=== PATIENT | male | born 1950 | race Caucasian/White ===

== ENCOUNTER 2016-12-05 07:34 | Emergency (ER) | payer OTHER, MEDICAID ==
[~2016-12-05] VITALS: Ht 157.5 cm; Wt 49.9 kg
[2016-12-05 08:14] LABS: Basophils # (auto) 0 uL; Basophils % (auto) 0.1 % (0.0-2.0); CONDITION Y; Eosinophils # (auto) 0 uL; Eosinophils % (auto) 0.2 % (0.0-7.0); Hematocrit 42.3 % (41.0-53.0); Lymphocytes # (auto) 0.9 uL; Lymphocytes % (auto) 11.1 % (10.0-50.0); Mean Corpuscular Hemoglobin 30.6 pg (28.0-32.0); Mean Corpuscular Hgb Conc. 33.1 g/dL (32.0-36.0); Mean Corpuscular Volume 92.4 fL (80.0-100.0); Monocytes # (auto) 0.4 uL; Monocytes % (auto) 4.9 % (0.0-12.0); Neutrophils # (auto) 6.8 uL; Neutrophils % (auto) 83.7 % (37.0-80.0); Platelet Count (auto) 263 10^3/uL (140-450); Red Cell Distribution Width 14.1 % (11.6-16.0); SUSPECT SEE PRINTOUT; White Blood Cell 8.1 10^3/uL (4.4-10.8)
[2016-12-05 08:38] LABS: Albumin 4.3 g/dL (3.4-5.0); Anion Gap 8 (5-15); Blood Urea Nitrogen 16 mg/dL (7-18); Calcium 9.1 mg/dL (8.5-10.1); Carbon Dioxide 31 mmol/L (21-32); Chloride 98 mmol/L (98-107); Glucose 69 mg/dL (74-106); Magnesium 2.9 mg/dL (1.6-2.6); Potassium 3.9 mmol/L (3.5-5.1); Sodium 137 mmol/L (136-145)
[2016-12-05 08:41] LABS: Aspartate Aminotransferase 47 U/L (15-37); BUN/Creatinine Ratio 20.5; GFR African American 128 mL/min; GFR Non-African American 106 mL/min
[2016-12-05 08:46] LABS: Alkaline Phosphatase 87 U/L (45-117); Bilirubin, Total 0.4 mg/dL (0.2-1.0); Total Protein 8.1 g/dL (6.4-8.2)
[2016-12-05 10:50] VITALS: BP 115/69
== END 2016-12-05 16:33 | disposition home or self-care (01) ==
LOC: EDBD 07:34 → ER 07:36
DX: G45.9 Transient cerebral ischemic attack, unspecified (principal); G80.9 Cerebral palsy, unspecified; I10 Essential (primary) hypertension
CPT/HCPCS: 36415; 70450; 71010; 80053; 83735; 84484; 85025; 93005; 94761

== ENCOUNTER 2024-05-29 16:51 | Inpatient (IN) | payer OTHER, MEDICAID ==
[~2024-05-29] VITALS: Ht 165.1 cm; Wt 76.5 kg
--- NOTE | 2024-05-29 17:09 | ECG ---
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
[2024-05-29] MEDS: SODIUM CHLORIDE 0.9% 1,000 ML IVB ONE (17:15)
--- NOTE | 2024-05-29 17:24 | ED.PDOC ---
History of Present Illness HPI Comments This is a 74-year-old male who comes in with chief complaint of generalized weakness for the past three weeks. The patient was not bed ridden but over the past several weeks, the patient has become more weak and unable to transfer himself to the wheelchair. The patient was had a decreased appetite as well as decreased urine output according to the summer intern. There has been no nausea, vomiting or fever. Upon arrival, the patient had an Accu-Chek of 217. The patient was somewhat drooling. He was able to answer some questions but is very weak. Chief Complaint: General Weakness Time Seen by MD: 16:56 Primary Care Provider: UNOBTAINABLE Reviewed Notes: Nurses Notes, Customer Energy Specialist Notes, Medications, Allergies (No allergies to medications) Allergies: Coded Allergies: NO KNOWN ALLERGIES (Unverified , 12/05/16) Home Meds Unable to Obtain Active Prescriptions or Reported Meds Information Source: Friend, Emergency Med Personnel Mode of Arrival: EMS Severity: Moderate Timing: Weeks Duration: Since onset Prehospital treatment: Accucheck (217) Associated signs and symptoms Generalized weakness with decreased appetite and decreased urine output Past Medical History PAST MEDICAL HISTORY: TIA Past Medical History (Other): Cerebral palsy, scoliosis Surgical History: Denies all surgeries Family History Family History: Reviewed,noncontributory to illness Social History Smoker: Non-Smoker Alcohol: Denies ETOH Use Drugs: Denies Drug Use Lives In: Home Constitutional: reports: weakness; denies: chills, diaphoresis, fatigue, fever, malaise, sweats, others EENTM: denies: blurred vision, double vision, ear bleeding, ear discharge, ear drainage, ear pain, ear ringing, eye pain, eye redness, hearing loss, mouth pain, mouth swelling, nasal discharge, nose bleeding, nose congestion, nose pain, photophobia, tearing, throat pain, throat swelling, voice changes, others Respiratory: denies: cough, hemoptysis, orthopnea, SOB at rest, shortness of breath, SOB with excertion, stridor, wheezing, others Cardiovascular: denies: chest pain, dizzy spells, diaphoresis, Dyspnea on exertion, edema, irregular heart beat, left arm pain, lightheadedness, palpitations, PND, syncope, others Gastrointestinal: reports: poor appetite; denies: abdomen distended, abdominal pain, blood streaked bowels, constipated, diarrhea, dysphagia, difficulty swallo wing, hematemesis, melena, nausea, poor fluid intake, rectal bleeding, rectal pain, vomiting, others Genitourinary: reports: others (Decreased urine output); denies: burning, dysuria, flank pain, frequency, hematuria, incontinence, penile discharge, penile sore, pain, testicle pain, testicle swelling, urgency Neurological: denies: dizziness, fainting, headache, left sided numbness, left sided weakness, numbness, paresthesia, pre-existing deficit, right sided numbness, right sided weakness, seizure, speech problems, tingling, tremors, weakness, others Musculoskeletal: denies: back pain, gout, joint pain, joint swelling, muscle pain, muscle stiffness, neck pain, others Integumetry: denies: bruises, change in color, change in hair/nails, dryness, laceration, lesions, lumps, rash, wounds, others Allergic/Immunocompromised: denies: Difficulty Healing, Frequent Infections, Hives, Itching, others Hematologic/Lymphatic: denies: anemia, blood clots, easy bleeding, easy bruising, swollen glands, others Endocrine: denies: excessive hunger, excessive sweating, excessive thirst, excessive urination, flushing, intolerance to cold, intolerance to heat, unexplained weight gain, unexplained weight loss, others Psychiatric: denies: anxiety, bipolar disorder, depression, hopeless, panic disorder, schizophrenia, sleepless, suicidal, others Physical Exam General Appearance: Cachectic, Moderate Distress, Other (The patient is signi ficantly contracted) HEENT: Pale Conjuntivae (L), Pale Conjuntivae (R), Pharynx Normal, TMs Normal, Other (The patient was drooling) Neck: Full Range of Motion, Non-Tender, Normal, Normal Inspection Respiratory: Chest Non-Tender, Lungs Clear, No Accessory Muscle Use, No Respiratory Distress, Normal Breath Sounds Cardiovascular: No Edema, No JVD, No Murmur, No Gallop, Normal Peripheral Pulses, Regular Rate/Rhythm Breast Exam: Deferred Gastrointestinal: No Organomegaly, Non Tender, No Pulsatile Mass, Normal Bowel Sounds, Soft Genitalia: Deferred Pelvic: Deferred Rectal: Deferred Extremities: No calf tenderness, Normal capillary refill, No pedal edema Musculoskeletal : Apperance: Normal 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 Was a procedure done?: No EKG EKG : Pulse Rate (adult): 72 Pace: Normal Cardiac Rhythm: NSR Block: None ST: Nonsp Differential Dx Considerations may include: Generalized weakness, electrolyte imbalance X-Ray, Labs, Meds, VS Vital Signs Date Time Temp Pulse Resp B/P (MAP) Pulse Ox O2 Delivery O2 Flow Rate FiO2 05/29/24 18:40 64 16 96 Room Air* 0 21 05/29/24 17:59 64 16 96 Room Air 05/29/24 17:59 97.7 64 16 128/77 (94) 96 97.7 05/29/24 17:24 72 05/29/24 17:08 72 05/29/24 16:56 97.8 68 18 140/75 (96) 97 Lab Test 05/29/24 17:44 05/29/24 17:30 Range/Units White Blood Count 7.7 4.4-10.8 10^3/uL Red Blood Count 4.52 4.5-5.90 10^6/uL Hemoglobin 14.2 13.5-17.5 g/dL Hematocrit 42.7 41.0-53.0 % Mean Corpuscular Volume 94.6 80.0-100.0 fL Mean Corpuscular Hemoglobin 31.5 28.0-32.0 pg Mean Corpuscular Hemoglobin Concent 33.3 32.0-36.0 g/dL Red Cell Distribution Width 13.0 11.8-14.3 % Platelet Count 118 L 140-450 10^3/uL Mean Platelet Volume 9.0 6.9-10.8 fL Neutrophils (%) (Auto) 63.9 37.0-80.0 % Lymphocytes (%) (Auto) 25.1 10.0-50.0 % Monocytes (%) (Auto) 6.8 0.0-12.0 % Eosinophils (%) (Auto) 3.5 0.0-7.0 % Basophils (%) (Auto) 0.7 0.0-2.0 % Neutrophils # (Auto) 4.9 1.6-8.6 10 ^3/uL Lymphocytes # (Auto) 1.9 0.4-5.4 10 ^3/uL Monocytes # (Auto) 0.5 0-1.3 10 ^3/uL Eosinophils # (Auto) 0.3 0-0.8 10 ^3/uL Basophils # (Auto) 0.1 0-0.2 10 ^3/uL Nucleated Red Blood Cells 0.0 % Sodium Level 142 136-145 mmol/L Potassium Level 3.6 3.5-5.1 mmol/L Chloride Level 104 98-107 mmol/L Carbon Dioxide Level 28 20-31 mmol/L Anion Gap 10 5-15 Blood Urea Nitrogen 26 H 9-23 mg/dL Creatinine 0.66 L 0.700-1.30 mg/dL Glomerular Filtration Rate Calc 98 >90 mL/min BUN/Creatinine Ratio 39.4 H 10.0-20.0 Serum Glucose 117 H 74-106 mg/dL Calcium Level 10.0 8.7-10.4 mg/dL Lactic Acid Level 1.8 0.4-2.0 mmol/L Current Medications Medications (Trade) Dose Ordered Sig/Elian Route Start Time Stop Time Status Last Admin Sodium Chloride 1,000 ml @ 1,000 mls/hr Q1H ONCE IVB 05/29/24 17:15 05/29/24 18:14 DC 05/29/24 17:15 IV Hep-Lock is being established The patient was being given a 1 L bolus of normal saline At this time, the patient had a CBC and chemistry panel which is within normal limits The patient is having failure to thrive The patient was being admitted to the hospitalist The patient was still not put out any urine output The patient was being admitted at this time Images Reviewed?: Images reviewed and evaluated by me Time of 1ST Reevaluation: 17:22 Reevaluation 1ST: Unchanged Patient Education/Counseling: Diagnosis, Treatment, Prognosis Family Education/Counseling: Diagnosis, Treatment, Prognosis Departure 1 Departure Time of Disposition: 21:14 Impression: Primary Impression: Failure to thrive Qualified Codes: R62.7 - Adult failure to thrive Additional Impression: Generalized weakness Disposition: ADMITTED INPATIENT Admit to: [facility] Condition: Fair e-Prescriptions Unable to Obtain Active Prescriptions or Reported Meds Critical Care Note Critical Care Time?: Yes (45 min-critical care time only) Stability Stability form required: Yes Unstable for transfer: Telemetry monitoring (Telemetry monitoring required), ED Physician Assesment (Clinical assesment) Heart Score Heart Score: Heart Score Response (Comments) Value History N/A 0 EKG N/A 0 Age N/A 0 Risk Factors N/A 0 Troponin N/A 0 Total 0 GEORGINA DUNBAR MD May 29, 2024 17:24
[2024-05-29 17:59] LABS: Chloride 104 mmol/L (98-107); Potassium 3.6 mmol/L (3.5-5.1); Sodium 142 mmol/L (136-145)
[2024-05-29 18:00] LABS: Anion Gap 10 (5-15); Carbon Dioxide 28 mmol/L (20-31)
[2024-05-29 18:02] LABS: Basophils # (auto) 0.1 10 ^3/uL (0-0.2); Basophils % (auto) 0.7 % (0.0-2.0); Eosinophils # (auto) 0.3 10 ^3/uL (0-0.8); Eosinophils % (auto) 3.5 % (0.0-7.0); Hematocrit 42.7 % (41.0-53.0); Hemoglobin 14.2 g/dL (13.5-17.5); Lymphocytes # (auto) 1.9 10 ^3/uL (0.4-5.4); Lymphocytes % (auto) 25.1 % (10.0-50.0); Mean Corpuscular Hemoglobin 31.5 pg (28.0-32.0); Mean Corpuscular Hgb Conc. 33.3 g/dL (32.0-36.0); Mean Corpuscular Volume 94.6 fL (80.0-100.0); Monocytes # (auto) 0.5 10 ^3/uL (0-1.3); Monocytes % (auto) 6.8 % (0.0-12.0); Neutrophils # (auto) 4.9 10 ^3/uL (1.6-8.6); Neutrophils % (auto) 63.9 % (37.0-80.0); Platelet Count (auto) 118 10^3/uL (140-450); Red Blood Cells 4.52 10^6/uL (4.5-5.90); White Blood Cell 7.7 10^3/uL (4.4-10.8)
[2024-05-29 18:05] LABS: BUN/Creatinine Ratio 39.4 (10.0-20.0)
[2024-05-29 18:39] LABS: Blood Urea Nitrogen 26 mg/dL (9-23); Glucose 117 mg/dL (74-106)
[2024-05-29 18:40] VITALS: PULSE 64; RESP 16; O2SAT 96
[2024-05-29] MEDS ORDERED: MORPHINE SULFATE INJ 2 MG/ml SYRG IV PRN (21:00)
[2024-05-29] MEDS ORDERED: NITROGLYCERIN 0.4 MG SL TAB SL PRN (21:00)
[2024-05-29] MEDS ORDERED: DOCUSATE SOD 100 MG CAP PO PRN (21:00)
--- NOTE | 2024-05-29 21:04 | DVHHPRES ---
History of Present Illness Resident Creating Document: DIMAS ASENCIO RESIDENT History of Present Illness VISHAL BATEMAN is a 74-year-old male with a PMH of cerebral palsy by and scoliosis presented to the accompanied by caregiver with the chief complaints of worsening of generalized weakness for past 2 weeks. Caregiver reported patient has been not eating, drinking for past 3 days and also usually patient can get himself up to chair and bedside commode med for past 2 weeks he is unable to transfer himself to wheelchair and found on the floor 2 times likely fall from bed. Caregiver denies fever, nausea, vomiting, flu-like symptoms, and other acute associated symptoms. PMH: Cerebral palsy, scoliosis PSH: Denies Family history: Reviewed, noncontributory Social history: Lives alone at home. Denies smoking, alcohol and other drug abuse Allergies: Sulfa allergies Home medications: Baclofen 10 mg Review of Systems Review of Systems Patient seen and examined bedside along with the caregiver. Patient is poorly verbal, caregiver reported after coming to hospital he has been having good bowel and bladder movement. Constitutional: Yes: Weakness Eyes: No: Pain, Vision change, Conjunctivae inflammation, Eyelid inflammation, Other, Redness ENT: No: Ear pain, Ear discharge, Nose pain, Nose discharge, Nose congestion, Mouth pain, Mouth swelling, Throat pain, Throat swelling, Other Respiratory: No: Cough, Dry, Shortness of breath, SOB with excertion, Wheezing, Hemoptysis, Pleuritic Pain, Sputum, Wheezing, Other Gastrointestinal: Constipation Genitourinary: No Dysuria, No Frequency, No Incontinence, No Hematuria, No Retention, No Other Musculoskeletal: back pain Skin: No: Rash, Lesions, Jaundice, Bruising, Other Neurological: No: Weakness, Numbness, Incoordination, Change in speech, Confusion, Seizures, Other Allergies: Coded Allergies: Sulfa Antibiotics (Verified Allergy, Unknown, 05/29/24) Medications Current Medications Medications Dose Ordered Sig/Elian Route Start Time Stop Time Status Last Admin Dose Admin Sodium Chloride 1,000 ml @ 60 mls/hr [id number] IV 05/29/24 21:00 Docusate Sodium 100 mg BIDPRN PRN PO 05/29/24 21:00 Enoxaparin Sodium 40 mg DAILY SC 05/30/24 10:00 Acetaminophen 650 mg Q6HP PRN PO 05/29/24 21:00 Morphine Sulfate 2 mg Q4HPRN PRN IV 05/29/24 21:00 Nitroglycerin 0.4 mg Q5MINP PRN SL 05/29/24 21:00 Morphine Sulfate 2 mg Q30M PRN IV 05/29/24 21:00 Exam Vital Signs Vital Signs Date Time Temp Pulse Resp B/P (MAP) Pulse Ox O2 Delivery O2 Flow Rate FiO2 05/29/24 18:40 64 16 96 Room Air* 0 21 05/29/24 17:59 97.7 128/77 (94) 97.7 Exam Pt is lying on wheelchair in lobby, limited exam due to patient clinical status General Appearance: Weak, Cooperative, mild distress HEENT: Atraumatic, Mucous membranes moist/pink Respiratory: Clear to auscultation, Normal air movement Cardiovascular: Regular rate, Normal S1, Normal S2 Abdominal: Active bowel sounds, Soft, no distention, no tenderness Extremities: No edema, Normal pulses Neuro: pooely verbal, wheel chair bound Nurse was there as sharperone during examination Labs/Xrays Labs Test 05/29/24 17:44 05/29/24 17:30 Range/Units White Blood Count 7.7 4.4-10.8 10^3/uL Red Blood Count 4.52 4.5-5.90 10^6/uL Hemoglobin 14.2 13.5-17.5 g/dL Hematocrit 42.7 41.0-53.0 % Mean Corpuscular Volume 94.6 80.0-100.0 fL Mean Corpuscular Hemoglobin 31.5 28.0-32.0 pg Mean Corpuscular Hemoglobin Concent 33.3 32.0-36.0 g/dL Red Cell Distribution Width 13.0 11.8-14.3 % Platelet Count 118 L 140-450 10^3/uL Mean Platelet Volume 9.0 6.9-10.8 fL Neutrophils (%) (Auto) 63.9 37.0-80.0 % Lymphocytes (%) (Auto) 25.1 10.0-50.0 % Monocytes (%) (Auto) 6.8 0.0-12.0 % Eosinophils (%) (Auto) 3.5 0.0-7.0 % Basophils (%) (Auto) 0.7 0.0-2.0 % Neutrophils # (Auto) 4.9 1.6-8.6 10 ^3/uL Lymphocytes # (Auto) 1.9 0.4-5.4 10 ^3/uL Monocytes # (Auto) 0.5 0-1.3 10 ^3/uL Eosinophils # (Auto) 0.3 0-0.8 10 ^3/uL Basophils # (Auto) 0.1 0-0.2 10 ^3/uL Nucleated Red Blood Cells 0.0 % Sodium Level 142 136-145 mmol/L Potassium Level 3.6 3.5-5.1 mmol/L Chloride Level 104 98-107 mmol/L Carbon Dioxide Level 28 20-31 mmol/L Anion Gap 10 5-15 Blood Urea Nitrogen 26 H 9-23 mg/dL Creatinine 0.66 L 0.700-1.30 mg/dL Glomerular Filtration Rate Calc 98 >90 mL/min BUN/Creatinine Ratio 39.4 H 10.0-20.0 Serum Glucose 117 H 74-106 mg/dL Calcium Level 10.0 8.7-10.4 mg/dL Lactic Acid Level 1.8 0.4-2.0 mmol/L Assessment/Plan Assessment/Plan # Generalized Weakness likely due to Dehydration # Dehydration - currently on IVF - Monitor lab # Mechanical fall without LOC - ordered head CT, pending # H/O cerebral palsy -pain management as needed PUD PPX: Protonix VTE PPX: Lovenox Diet: NPO Goals of care discussed with the patient's sister but they are unaware of patient's code status. Case discussed with Dr. Fournier and nurse Plan discussed with: Other (Caregiver) My Orders Orders - DIMAS ASENCIO RESIDENT Procedure Category Date Status Time Admit ADMIT 05/29/24 Transmitted 20:46 Allergies MIGUEL ANGEL 05/29/24 In Process 20:46 Code Status CODE 05/29/24 Transmitted 20:46 Sodium Chloride 0.9% PHA 05/29/24 In Process 21:00 Docusate Sodium PHA 05/29/24 In Process Capsule (Colace 21:00 Enoxaparin Sodium PHA 05/30/24 In Process (Lovenox) 10:00 Fall Risk Precautions MIGUEL ANGEL 05/29/[address] 20:46 Complete Blood Count LAB 05/30/24 Verified 04:00 Comprehensive LAB 05/30/24 Verified Metabolic Panel 04:00 Condition: Stable MIGUEL ANGEL 05/29/24 In Process 20:46 Acetaminophen Tablet PHA 05/29/24 In Process (Tylenol Tablet) 21:00 Clear Liq Diet DIET 05/30/24 Transmitted Breakfast Morphine Sulfate PHA 05/29/24 In Process Injection 21:00 Nitroglycerin PHA 05/29/24 In Process Sublingual (Ntrostat 21:00 Morphine Sulfate PHA 05/29/24 In Process Injection 21:00 Oxygen By Nasal RT 05/29/24 Transmitted Cannula 20:46 Stat Ekg For Chest MIGUEL ANGEL 05/29/24 In Process Pain 20:46 Notify Md Of Changes MIGUEL ANGEL 05/29/24 In Process From Base 20:46 Chief Engineer Production For [facility] 05/29/24 In Process 24 Hours 20:46 Emergency Dysrhythmia [facility] 05/29/24 In Process Protocol 20:46 Rhythm Strips Once [facility] 05/29/24 In Process Every Shift 20:46 Date of Service: May 29, 2024 Billing Provider: SHEYLA FOURNIER MD Common Visit Codes: [id number] INP/OBS CARE (HIGH) DIMAS ASENCIO RESIDENT May 29, 2024 21:04 SHEYLA FOURNIER MD May 31, 2024 00:37
--- NOTE | 2024-05-29 21:05 | DVH ---
CHEST RADIOGRAPH Indication: weakness Technique: Single frontal view of the chest was obtained COMPARISON: None FINDINGS: Lines and Tubes: None Lungs: Mild pulmonary vascular congestion Pleura: No effusion. No pneumothorax. Cardiomediastinal contours: Moderate hiatal hernia. Bones: Unremarkable IMPRESSION: Limited examination secondary to patient positioning. Mild pulmonary vascular congestion
[2024-05-29] MEDS: SODIUM CHLORIDE 0.9% 1,000 ML IV SCH (21:17)
[2024-05-29] MEDS: BACLOFEN 10 MG TAB PO ONE (22:35)
[2024-05-29] MEDS: HYDROcodone-ACET 5/325MG TAB PO ONE (22:35)
[2024-05-29 22:50] VITALS: PULSE 55; RESP 14; O2SAT 94
[2024-05-29 23:34] LABS: Urine Bacteria None Seen /hpf (None Seen)
[2024-05-29 23:59] LABS: Amphetamine Screen, Urine Neg (NEGATIVE); Barbiturate Scree,Urine Neg (NEGATIVE); Benzodiazephine Screen, Urine Neg (NEGATIVE); Cannabinoid Screen, Urine Neg (NEGATIVE); Cocaine Screen, Urine Neg (NEGATIVE); Opiate Scree,Urine Neg (NEGATIVE); Phencyclidine Screen, Urine Neg (NEGATIVE)
[2024-05-30] VITALS (16 sets, daily range): BP systolic 112–151; BP diastolic 50–67; PULSE 60–95; RESP 16–20; TEMP 97.5–98.6; O2SAT 79–100
[2024-05-30 00:16] LABS: Urine Blood 2+ /uL (Negative); Urine Clarity Clear (Clear); Urine Color Yellow (Yellow); Urine Mucus FEW (None Seen); Urine Protein, UAD TRACE (Negative); Urine Specific Gravity 1.029 (1.001-1.035); Urine Squamous Epithelial Cell FEW /hpf (<5); Urine Urobilinogen Normal (Negative); Urine WBC 2 /HPF (0-3)
[2024-05-30 00:25] LABS: Triglycerides 76 mg/dL (< 150)
[2024-05-30 00:27] LABS: Cholesterol 174 mg/dL (< 200); HDL Cholesterol 41 mg/dL (40-59)
[2024-05-30 00:35] LABS: LDL Cholesterol 120 mg/dL (< 100)
[2024-05-30 02:28] LABS: Alanine Aminotransferase 20 U/L (7-40); Albumin 4.3 g/dL (3.2-4.8); Alkaline Phosphatase 56 U/L (46-116); Aspartate Aminotransferase 35 U/L (13-40); Bilirubin, Total 0.5 mg/dL (0.2-1.0); Total Protein 6.6 g/dL (5.7-8.2)
[2024-05-30 02:44] LABS: Bilirubin, Direct < 0.1 mg/dL (<0.3)
[2024-05-30 07:12] LABS: Basophils # (auto) 0.1 10 ^3/uL (0-0.2); Basophils % (auto) 0.7 % (0.0-2.0); Eosinophils # (auto) 0.4 10 ^3/uL (0-0.8); Eosinophils % (auto) 3.4 % (0.0-7.0); Hematocrit 36.8 % (41.0-53.0); Hemoglobin 12.7 g/dL (13.5-17.5); Lymphocytes # (auto) 1.8 10 ^3/uL (0.4-5.4); Lymphocytes % (auto) 16.7 % (10.0-50.0); Mean Corpuscular Hemoglobin 32.7 pg (28.0-32.0); Mean Corpuscular Hgb Conc. 34.5 g/dL (32.0-36.0); Mean Corpuscular Volume 94.7 fL (80.0-100.0); Monocytes % (auto) 8.9 % (0.0-12.0); Neutrophils # (auto) 7.6 10 ^3/uL (1.6-8.6); Neutrophils % (auto) 70.3 % (37.0-80.0); Nucleated Red Blood Cells % 0.1 %; Platelet Count (auto) 95 10^3/uL (140-450); Red Blood Cells 3.88 10^6/uL (4.5-5.90); Red Cell Distribution Width 12.8 % (11.8-14.3); White Blood Cell 10.8 10^3/uL (4.4-10.8)
[2024-05-30 07:33] LABS: Alanine Aminotransferase 15 U/L (7-40); Albumin 3.8 g/dL (3.2-4.8); Alkaline Phosphatase 54 U/L (46-116); Anion Gap 9 (5-15); Aspartate Aminotransferase 14 U/L (13-40); BUN/Creatinine Ratio 41.9 (10.0-20.0); Bilirubin, Total 0.5 mg/dL (0.2-1.0); Blood Urea Nitrogen 18 mg/dL (9-23); Calcium 9.1 mg/dL (8.7-10.4); Carbon Dioxide 26 mmol/L (20-31); Chloride 108 mmol/L (98-107); Glucose 76 mg/dL (74-106); Potassium 3.5 mmol/L (3.5-5.1); Sodium 143 mmol/L (136-145); Total Protein 5.8 g/dL (5.7-8.2)
--- NOTE | 2024-05-30 09:08 | DVH ---
EXAM: CT HEAD WITHOUT CONTRAST HISTORY: Mechanical fall COMPARISON: HEAD WITHOUT CONTRAST on DOS: 06/03/19, HEAD WITHOUT CONTRAST on DOS: 06/01/19 TECHNIQUE: Axial images were obtained and reformatted in coronal and sagittal planes. All CT scans at this medical facility are performed using dose modulation techniques as appropriate t o a performed exam including the following: Automated exposure control was utilized; adjustment of th e MA and/or KV according to patient size; and use of iterative reconstruction technique. CT Dose: CTDI volume is 58.87 mGy. Dose-length product is 1160.11 mGy*cm FINDINGS: Supratentorial Region: No evidence for large acute territorial ischemia. No intracranial hemorrhage is noted. Posterior Fossa: No acute abnormality. Brainstem: Unremarkable. Sellar/Suprasellar Region: Unremarkable. Ventricles, Cisterns, Sulci: Age-appropriate. Orbits: Unremarkable. Paranasal Sinuses: Mild ethmoid sinus mucosal thickening. A 2 cm mucous retention cyst noted in the right maxillary sinus. Mastoid Air Cells: Unremarkable. Vasculature: Unremarkable. Bones/Soft Tissues: No acute abnormality. Other: None. IMPRESSION: 1. No acute intracranial process.
--- NOTE | 2024-05-30 11:26 | DVHPNRES ---
Progress Note Date Seen: May 30, 2024 Resident Creating Document: SANTIAGO TAVAREZ RESIDENT Medical Necessity Reason Pt with a Central, PICC or Fol: Yes The following are medically ne: Wilks Catheter Subjective Review of Systems VISHAL BATEMAN is a 74-year-old male with a PMH of cerebral palsy by and scoliosis presented to the accompanied by caregiver with the chief complaints of worsening of generalized weakness for past 2 weeks. Caregiver reported patient has been not eating, drinking for past 3 days and also usually patient can get himself up to chair and bedside commode med for past 2 weeks he is unable to transfer himself to wheelchair and found on the floor 2 times likely fall from bed. Caregiver denies fever, nausea, vomiting, flu-like symptoms, and other acute associated symptoms. Patient reported back pain himself. But denies any other complaint. PMH: Cerebral palsy, scoliosis PSH: Denies Family history: Reviewed, noncontributory Social history: Lives alone at home. Denies smoking, alcohol and other drug abuse Allergies: Sulfa allergies Home medications: Baclofen 10 mg Patient seen and examined at the bedside. CT head unremarkable. Objective vital signs Vital Sign Date Time Temp Pulse Resp B/P (MAP) Pulse Ox O2 Delivery O2 Flow Rate FiO2 05/30/24 09:00 97.9 87 20 144/66 (92) 92 97.9 05/30/24 08:00 Room Air* 0 21 Total Intake and Output 05/29/24 05/29/24 05/30/24 14:59 22:59 06:59 Intake Total 1060 ml 120 ml Output Total 150 ml Balance 1060 ml -30 ml medications Current Medications Medications Dose Ordered Sig/Elian Route Start Time Stop Time Status Last Admin Dose Admin Sodium Chloride 1,000 ml @ 60 mls/hr [id number] IV 05/29/24 21:00 05/30/24 09:39 60 MLS/HR Docusate Sodium 100 mg BIDPRN PRN PO 05/29/24 21:00 Enoxaparin Sodium 40 mg DAILY SC 05/30/24 10:00 Acetaminophen 650 mg Q6HP PRN PO 05/29/24 21:00 Morphine Sulfate 2 mg Q4HPRN PRN IV 05/29/24 21:00 Nitroglycerin 0.4 mg Q5MINP PRN SL 05/29/24 21:00 Morphine Sulfate 2 mg Q30M PRN IV 05/29/24 21:00 Examination Elderly male patient lying in bed, in no acute distress, General: Cachectic-looking, afebrile, palor, mucosae are moist Cardiovascular: Regular S1 and S2. No murmurs, gallops or rubs. No JVD elevation. No pedal edema Respiratory: Normal B/L air entry on room air. Clear lung sounds on auscultation Abdomen: Soft, nontender, nondistended, normoactive bowel sounds, no rebound tenderness, no organomegaly, no masses. Wilks seen Genitourinary: Deferred MSK/skin: Mobilizes 4 limbs. Skin is dry and warm Neurological: No motor, no sensitive deficits, normal speech. Pupils are isocoric and reactive. Psych/Mental Status: A/Ox2 laboratory and microbiology Laboratory Tests 05/30/24 06:45 Test 05/30/24 06:45 Range/Units Serum Glucose 76 74-106 mg/dL Labs and/or images reviewed: Labs reviewed by me, Image(s) reviewed by me Problem List/Assessment/Plan Problem List/Assessment/Plan Generalized weakness probably secondary to IV volume depletion and Pneumonia History of cerebral palsy CT head unremarkable Continue IV fluid Pneumonia, gram positive and Negative IV Ceftriaxone and IV azithro 05/30 MRSA nares pending Neb Ipratropium Mechanical fall without LOC Head CT unremarkable Microscopic hematuria Chronic Wilks catheter UA shows 2+ blood in 158 RBC Lovenox 40 mg sc daily Pending swallow eval DIET : NPO ON accu checks Plan discussed with patient and the nurse in which all questions have been answered Case discussed with Dr. Joyce Plan discussed with: Patient My Orders My Orders Orders - SANTIAGO TAVAREZ Procedure Category Date Status Time Erythrocyte LAB 05/30/24 Verified Sedimentation Rate 11:22 C-Reactive Protein LAB 05/30/24 Verified 11:22 Chest Xray 1 View XY 05/30/24 Verified 11:22 Date of Service: May 30, 2024 Billing Provider: MARY VU MD Common Visit Codes: [id number] INP/OBS CARE(HIGH) SANTIAGO TAVAREZ May 30, 2024 11:26 MARY VU MD Jun 03, 2024 00:08
--- NOTE | 2024-05-30 12:08 | DVH ---
EXAM: XY CHEST XRAY 1 VIEW Indication: pain Technique: Single frontal view of the chest was obtained Comparison: XY CHEST PORTABLE on DOS: 05/29/24 FINDINGS: Lines and Tubes: None Lungs: Ill-defined right upper lung consolidative opacity. Pleura: No effusion. No pneumothorax. Cardiomediastinal contours: Unremarkable Bones: No acute osseous abnormality. IMPRESSION: Ill-defined right upper lung opacity may reflect developing pneumonia versus atelectasis.
[2024-05-30] MEDS ORDERED: AZITHROMYCIN 500MG/ 250ML 250 ML IV SCH (12:45)
[2024-05-30 12:55] LABS: Erythrocyte Sedimentation Rate 12 mm/hr (0-20)
[2024-05-30] MEDS: IPRATROPIUM BROM 0.5 MG/2.5ML INH SOL NEB SCH (14:06)
[2024-05-30] MEDS: ENOXAPARIN SOD 40 MG/0.4 ML SYRINGE SC SCH (15:14)
[2024-05-30] MEDS: cefTRIAXone 1GM/50ML D5W 50 ML IV SCH (15:15)
[2024-05-30] MEDS: ACCU-CHEK COMFORT CURVE STRIP VI SCH (20:00)
[2024-05-30 21:53] LABS: COVID19 ANTIGEN SOFIA FIA NEGATIVE (NEGATIVE)
[2024-05-30 23:39] LABS: Rapid Influenza A Negative (Negative); Rapid Influenza B Negative (Negative)
[2024-05-31] VITALS (23 sets, daily range): BP systolic 104–154; BP diastolic 51–85; PULSE 77–104; RESP 16–20; TEMP 97.4–99.4; O2SAT 89–100
[2024-05-31] MEDS: DEXTROSE (50%) 50ML SYRG IV PRN (04:38)
[2024-05-31 06:57] LABS: Anion Gap 16 (5-15); Chloride 106 mmol/L (98-107); Potassium 4.2 mmol/L (3.5-5.1); Sodium 139 mmol/L (136-145)
[2024-05-31 06:59] LABS: Calcium 9.2 mg/dL (8.7-10.4)
[2024-05-31 07:03] LABS: BUN/Creatinine Ratio 26.8 (10.0-20.0); Blood Urea Nitrogen 15 mg/dL (9-23); Carbon Dioxide 17 mmol/L (20-31)
[2024-05-31 07:04] LABS: Glucose 166 mg/dL (74-106)
[2024-05-31 08:18] LABS: Basophils # (auto) 0 10 ^3/uL (0-0.2); Basophils % (auto) 0.3 % (0.0-2.0); Eosinophils # (auto) 0 10 ^3/uL (0-0.8); Eosinophils % (auto) 0.2 % (0.0-7.0); Hematocrit 45.1 % (41.0-53.0); Hemoglobin 14.6 g/dL (13.5-17.5); Lymphocytes # (auto) 1.2 10 ^3/uL (0.4-5.4); Lymphocytes % (auto) 8.3 % (10.0-50.0); Mean Corpuscular Hemoglobin 31.3 pg (28.0-32.0); Mean Corpuscular Hgb Conc. 32.3 g/dL (32.0-36.0); Mean Corpuscular Volume 96.8 fL (80.0-100.0); Monocytes # (auto) 0.7 10 ^3/uL (0-1.3); Monocytes % (auto) 4.9 % (0.0-12.0); Neutrophils # (auto) 12.5 10 ^3/uL (1.6-8.6); Neutrophils % (auto) 86.3 % (37.0-80.0); Nucleated Red Blood Cells % 0.1 %; Platelet Count (auto) 78 10^3/uL (140-450); Red Blood Cells 4.67 10^6/uL (4.5-5.90); Red Cell Distribution Width 12.9 % (11.8-14.3); White Blood Cell 14.4 10^3/uL (4.4-10.8)
[2024-05-31] MEDS: MORPHINE SULFATE INJ 2 MG/ml SYRG IV PRN (09:00)
--- NOTE | 2024-05-31 12:21 | DVHPNRES ---
Progress Note Date Seen: May 31, 2024 Resident Creating Document: SANTIAGO TAVAREZ RESIDENT Medical Necessity Reason Pt with a Central, PICC or Fol: Yes The following are medically ne: Wilks Catheter Subjective Review of Systems VISHAL BATEMAN is a 74-year-old male with a PMH of cerebral palsy by and scoliosis presented to the accompanied by caregiver with the chief complaints of worsening of generalized weakness for past 2 weeks. Caregiver reported patient has been not eating, drinking for past 3 days and also usually patient can get himself up to chair and bedside commode med for past 2 weeks he is unable to transfer himself to wheelchair and found on the floor 2 times likely fall from bed. Caregiver denies fever, nausea, vomiting, flu-like symptoms, and other acute associated symptoms. Patient reported back pain himself. But denies any other complaint. PMH: Cerebral palsy, scoliosis PSH: Denies Family history: Reviewed, noncontributory Social history: Lives alone at home. Denies smoking, alcohol and other drug abuse Allergies: Sulfa allergies Home medications: Baclofen 10 mg 06/01 - Patient seen and examined at the bedside. CT head unremarkable. Failed Swallow eval. 05/31 - patient seen and examined at the bedside. Repeat swallow eval pending. White cell count increased to 14, serum bicarb going down, anion gap increased. Lactic acid within normal limit. Antibiotics broadened. Failed swallow eval twice now. Patient reports: No new complaints Objective vital signs Vital Sign Date Time Temp Pulse Resp B/P (MAP) Pulse Ox O2 Delivery O2 Flow Rate FiO2 05/31/24 10:10 81 20 100 05/31/24 10:00 Room Air* 0 21 05/31/24 09:00 131/70 05/31/24 08:51 98.5 98.5 Total Intake and Output 05/30/24 05/30/24 05/31/24 15:00 23:00 07:00 Intake Total 50 ml Output Total 450 ml 750 ml Balance -400 ml -750 ml medications Current Medications Medications Dose Ordered Sig/Elian Route Start Time Stop Time Status Last Admin Dose Admin Sodium Chloride 1,000 ml @ 60 mls/hr [id number] IV 05/29/24 21:00 05/31/24 04:49 60 MLS/HR Docusate Sodium 100 mg BIDPRN PRN PO 05/29/24 21:00 Enoxaparin Sodium 40 mg DAILY SC 05/30/24 10:00 05/30/24 15:14 40 MG Acetaminophen 650 mg Q6HP PRN PO 05/29/24 21:00 Morphine Sulfate 2 mg Q4HPRN PRN IV 05/29/24 21:00 05/31/24 09:00 2 MG Nitroglycerin 0.4 mg Q5MINP PRN SL 05/29/24 21:00 Morphine Sulfate 2 mg Q30M PRN IV 05/29/24 21:00 Ipratropium [place] 0.5 mg Q4HWA NEB 05/30/24 14:00 05/31/24 10:02 0.5 MG Diagnostic Test (Pha) 1 strip IQ4HR 05/30/24 20:00 05/31/24 08:00 1 STRIP Dextrose 50 ml UD PRN IV 05/30/24 17:00 05/31/24 04:38 50 ML Doxycycline Hyclate 100 ml @ 50 mls/hr Q12H IV 05/31/24 12:15 UNV Piperacillin Sod/ Tazobactam Sod 100 ml @ 25 mls/hr Q6HR IV 05/31/24 18:00 UNV Dextrose/Sodium Chloride 1,000 ml @ 80 mls/hr [id number] IV 05/31/24 12:15 06/01/24 01:00 UNV Examination Elderly male patient lying in bed, in no acute distress, General: Cachectic-looking, afebrile, palor, mucosae are moist Cardiovascular: Regular S1 and S2. No murmurs, gallops or rubs. No JVD elevation. No pedal edema Respiratory: Normal B/L air entry on room air. Clear lung sounds on auscultation Abdomen: Soft, nontender, nondistended, normoactive bowel sounds, no rebound tenderness, no organomegaly, no masses. Wilks seen Genitourinary: Deferred MSK/skin: Mobilizes 4 limbs. Skin is dry and warm Neurological: No motor, no sensitive deficits, normal speech. Pupils are isocoric and reactive. Psych/Mental Status: A/Ox2 laboratory and microbiology Laboratory Tests 05/31/24 06:02 Test 05/31/24 06:02 Range/Units Serum Glucose 166 H 74-106 mg/dL Microbiology Date/Time Source Procedure Growth Status 05/29/24 17:44 Blood Blood Culture - Preliminary NO GROWTH AFTER 24 HOURS OF INCUBATION. Resulted Labs and/or images reviewed: Labs reviewed by me, Image(s) reviewed by me Problem List/Assessment/Plan Problem List/Assessment/Plan Generalized weakness probably secondary to IV volume depletion and Pneumonia History of cerebral palsy CT head unremarkable Continue IV fluid Sepsis secondary to Pneumonia, gram positive and Negative IV Ceftriaxone and IV azithro 05/30. Discontinued 05/31 IV antibiotics broadened to IV Zosyn and IV doxy 05/31 MRSA nares pending Neb Ipratropium and albuterol q.4 hours Sputum culture pending Lactic unremarkable Mechanical fall without LOC Head CT unremarkable Microscopic hematuria Chronic Wilks catheter UA shows 2+ blood in 158 RBC Lovenox 40 mg sc daily Failed swallow eval once, second swallow eval also failed. DIET : NPO ON accu checks Goals of care discussed with the patient, caregiver and (niece over the phone), over 30 minutes DNR Plan discussed with patient and the nurse in which all questions have been answered Case discussed with Dr. Joyce Plan discussed with: Patient, Other (Caregiver, niece) My Orders My Orders Orders - SANTIAGO TAVAREZ Procedure Category Date Status Time Mrsa Screen ADARSH 05/30/24 In Process 20:58 Ipratropium Medneb PHA 05/30/24 In Process (Atrovent Medneb) 14:00 Glucose Blood PHA 05/30/24 In Process (Accu-Chek Comfort 20:00 Dextrose 50% Syringe PHA 05/30/24 In Process 17:00 * Swallow Request ST 05/31/24 Transmitted 11:51 Communication Order ORDERS 05/31/24 Transmitted 11:51 Doxycycline PHA 05/31/24 Logged 100mg/100ml 12:15 Piperacillin-Tazob PHA 05/31/24 Logged 2.25gm (Zosyn 2.25gm) 12:15 Piperacillin-Tazo PHA 05/31/24 Logged 4.5gm (Zosyn 4.5gm/100 18:00 D5w/Sod Chl 0.45% PHA 05/31/24 Logged (D5w 1/2ns) 12:15 DNR MIGUEL ANGEL 05/31/24 In Process 12:07 Code Blue Signature NOTICE 05/31/24 Transmitted Request 12:07 Code Status CODE 05/31/24 Transmitted 12:07 Date of Service: May 31, 2024 Billing Provider: MARY VU MD Common Visit Codes: [id number] INP/OBS CARE(HIGH) SANTIAGO TAVAREZ RESIDENT May 31, 2024 12:21 MARY VU MD Jun 03, 2024 00:13
[2024-05-31] MEDS ORDERED: PIPERACILLIN-TAZOB 2.25GM 50 ML IV ONE (13:30)
[2024-05-31] MEDS: ALBUTEROL SULF 2.5 MG/0.5ML(0.5%) NEB SOLN NEB SCH (13:57)
[2024-05-31 14:04] LABS: Chloride 106 mmol/L (98-107); Potassium 4.1 mmol/L (3.5-5.1); Sodium 140 mmol/L (136-145)
[2024-05-31 14:05] LABS: Anion Gap 11 (5-15); Calcium 9.2 mg/dL (8.7-10.4); Carbon Dioxide 23 mmol/L (20-31)
[2024-05-31 14:10] LABS: BUN/Creatinine Ratio 25.5 (10.0-20.0); Blood Urea Nitrogen 13 mg/dL (9-23)
[2024-05-31 14:20] LABS: Glucose 72 mg/dL (74-106)
--- NOTE | 2024-05-31 15:49 | DVHSR ---
APPROVED REPORT EXAM: Two-dimensional and M-mode echocardiogram with Doppler and color Doppler. Blood Pressure: 123/50 mmHg INDICATION Heart Failure RISK FACTORS Height: 5'5", Weight: 91 DIMENSIONS LVDd4.0 (3.8-5.7cm)LA (2D) (1.9-4.0cm)Aortic Root (2.0-3.7cm) LVDs3.0 (2.5-4.0cm)LA (MM) (1.9-4.0cm)Aortic Cusp Exc (1.5-2.0cm) EF (%) 50.0 (55-70%)Rt. Atrium (1.9-4.0cm)Asc. Aorta cm Mitral Valve MitralMitral Stenosis E/A ratio0.02D MVAcm2 Other Information Quality : Technically LimitedRhythm : Technically limited study due to body habitus and lying right side Conclusion VERY LIMITED STUDY NO VALVE ASSESSMENT LVEF 60% BY VISUAL ESTIMATE NORMAL RV FUNCTION LEFT ATRIUM ENLARGED MILD
[2024-05-31] MEDS: PIPERACILLIN-TAZOB 2.25GM 50 ML IV ONE (16:08)
[2024-05-31] MEDS: D5W/SOD CHL 0.45% 1,000 ML IV SCH (18:44)
[2024-05-31] MEDS: DOXYCYCLINE 100MG/100ML 100 ML IV SCH (20:14)
[2024-05-31] MEDS: PIPERACILLIN-TAZOB 3.375GM 100 ML IV SCH (22:50)
[2024-06-01] VITALS (22 sets, daily range): BP systolic 106–159; BP diastolic 58–87; PULSE 60–101; RESP 16–19; TEMP 97.5–98.9; O2SAT 93–100
[2024-06-01] MEDS: PIPERACILLIN-TAZOB 3.375GM 100 ML IV SCH (05:18)
[2024-06-01 07:27] LABS: Chloride 106 mmol/L (98-107); Potassium 3.7 mmol/L (3.5-5.1)
[2024-06-01 07:28] LABS: Anion Gap 9 (5-15); Calcium 8.9 mg/dL (8.7-10.4); Carbon Dioxide 21 mmol/L (20-31)
[2024-06-01 07:33] LABS: BUN/Creatinine Ratio 10.9 (10.0-20.0); Magnesium 1.8 mg/dL (1.6-2.6)
[2024-06-01 07:54] LABS: Blood Urea Nitrogen 6 mg/dL (9-23); Glucose 160 mg/dL (74-106); Sodium 136 mmol/L (136-145)
[2024-06-01 08:23] LABS: Basophils # (auto) 0 10 ^3/uL (0-0.2); Basophils % (auto) 0.3 % (0.0-2.0); Eosinophils # (auto) 0.4 10 ^3/uL (0-0.8); Eosinophils % (auto) 4.8 % (0.0-7.0); Hematocrit 38.5 % (41.0-53.0); Hemoglobin 13.1 g/dL (13.5-17.5); Lymphocytes # (auto) 1.3 10 ^3/uL (0.4-5.4); Lymphocytes % (auto) 13.7 % (10.0-50.0); Mean Corpuscular Hemoglobin 31.8 pg (28.0-32.0); Mean Corpuscular Volume 93.5 fL (80.0-100.0); Monocytes # (auto) 0.5 10 ^3/uL (0-1.3); Neutrophils # (auto) 6.9 10 ^3/uL (1.6-8.6); Neutrophils % (auto) 75.2 % (37.0-80.0); Nucleated Red Blood Cells % 0.1 %; Platelet Count (auto) 107 10^3/uL (140-450); Red Blood Cells 4.11 10^6/uL (4.5-5.90); Red Cell Distribution Width 12.8 % (11.8-14.3); White Blood Cell 9.2 10^3/uL (4.4-10.8)
--- NOTE | 2024-06-01 17:55 | DVHPN2 ---
Subjective 06/01- POA rashi May wants to proceed with hospice. Patient was prior on hospice at home but was not getting adequate care. We will consult social to help with hospice and discharge planning. We will get MRI since dysphagia is new for the patient. Reviewed: H&P Changes from previous H/P or p: No Changes General: Per HPI Eyes: No Pain, No Vision change, No Conjunctivae inflammation, No Eyelid inflammation, No Other, No Redness ENT: No Ear pain, No Ear discharge, No Nose pain, No Nose discharge, No Nose congestion, No Mouth pain, No Mouth swelling, No Throat pain, No Throat swelling, No Other Respiratory: No Cough, No Dry, No Shortness of breath, No SOB with excertion, No Wheezing, No Hemoptysis, No Pleuritic Pain, No Sputum, No Other Gastrointestinal: Constipation Genitourinary: No Dysuria, No Frequency, No Incontinence, No Hematuria, No Retention, No Other Musculoskeletal: back pain Skin: No Rash, No Lesions, No Jaundice, No Bruising, No Other Objective Vitals Vital Signs Date Time Temp Pulse Resp B/P (MAP) Pulse Ox O2 Delivery O2 Flow Rate FiO2 06/01/24 17:00 97.6 67 16 155/75 (101) 95 97.6 06/01/24 09:30 Room Air* 0 21 Intake/Output Intake and Output 06/01/24 07:00 Intake Total 250 ml Output Total 1600 ml Balance -1350 ml Intake Oral 0 ml IV Total 250 ml Output Urine Total 1600 ml Exam Elderly male patient lying in bed, in no acute distress, General: Cachectic-looking, afebrile, palor, mucosae are moist Cardiovascular: Regular S1 and S2. No murmurs, gallops or rubs. No JVD elevation. No pedal edema Respiratory: Normal B/L air entry on room air. Clear lung sounds on auscultation Abdomen: Soft, nontender, nondistended, normoactive bowel sounds, no rebound tenderness, no organomegaly, no masses. Wilks seen Genitourinary: Deferred MSK/skin: Mobilizes 4 limbs. Skin is dry and warm Neurological: No motor, no sensitive deficits, normal speech. Pupils are isocoric and reactive. Psych/Mental Status: A/Ox2 Medications Current Medications Medications Dose Ordered Sig/Elian Route Start Time Stop Time Status Last Admin Dose Admin Sodium Chloride 1,000 ml @ 60 mls/hr [id number] IV 05/29/24 21:00 06/01/24 15:40 60 MLS/HR Docusate Sodium 100 mg BIDPRN PRN PO 05/29/24 21:00 Enoxaparin Sodium 40 mg DAILY SC 05/30/24 10:00 06/01/24 09:57 40 MG Acetaminophen 650 mg Q6HP PRN PO 05/29/24 21:00 Morphine Sulfate 2 mg Q4HPRN PRN IV 05/29/24 21:00 05/31/24 09:00 2 MG Nitroglycerin 0.4 mg Q5MINP PRN SL 05/29/24 21:00 Morphine Sulfate 2 mg Q30M PRN IV 05/29/24 21:00 Ipratropium [place] 0.5 mg Q4HWA NEB 05/30/24 14:00 06/01/24 15:07 0.5 MG Diagnostic Test (Pha) 1 strip IQ4HR 05/30/24 20:00 06/01/24 16:00 1 STRIP Dextrose 50 ml UD PRN IV 05/30/24 17:00 05/31/24 04:38 50 ML Doxycycline Hyclate 100 ml @ 50 mls/hr Q12H IV 05/31/24 18:00 06/01/24 17:08 50 MLS/HR Albuterol 1.25 mg Q4HR NEB 05/31/24 14:00 06/01/24 15:07 1.25 MG Piperacillin Sod/ Tazobactam Sod 100 ml @ 100 mls/hr Q6H IV 06/01/24 05:00 06/01/24 17:08 100 MLS/HR Laboratory Results Laboratory Tests 06/01/24 06:35 Chemistry Test 06/01/24 06:35 Calcium Level 8.9 mg/dL (8.7-10.4) Magnesium Level 1.8 mg/dL (1.6-2.6) Urinalysis Test 05/29/24 18:38 Urine Color Yellow (Yellow) Urine Clarity Clear (Clear) Urine pH 6.0 (5.0-9.0) Urine Specific [place] 1.029 (1.001-1.035) Urine Protein Trace (Negative) H Urine Ketones Trace (Negative) Urine Blood 2+ /uL (Negative) H Urine Nitrite Negative (Negative) Urine Bilirubin Negative (Negative) Urine Urobilinogen Normal mg/dL (Negative) Urine Leukocyte Esterase Negative /uL (Negative) Urine RBC 158 /hpf (0 - 3) Urine Microscopic WBC 2 /HPF (0-3) Urine Squamous Epithelial Cells Few /hpf (<5) Urine Bacteria None seen /hpf (None Seen) Urine Mucus Few (None Seen) Urine Glucose Normal mg/dL (Normal) Microbiology Microbiology Date/Time Source Procedure Growth Status 05/30/24 22:30 Nose MRSA Screen - Final Complete 05/29/24 17:44 Blood Blood Culture - Preliminary NO GROWTH AFTER 72 HOURS OF INCUBATION. Resulted Labs and/or images reviewed: Labs reviewed by me, Image(s) reviewed by me Assessment/Plan Assessment/Plan 06/01- POA rashi May wants to proceed with hospice. Patient was prior on hospice at home but was not getting adequate care. We will consult social to help with hospice and discharge planning. We will get MRI since dysphagia is new for the patient. Generalized weakness probably secondary to IV volume depletion and Pneumonia History of cerebral palsy CT head unremarkable Continue IV fluid Sepsis secondary to Pneumonia, gram positive and Negative IV Ceftriaxone and IV azithro 05/30. Discontinued 05/31 IV antibiotics broadened to IV Zosyn and IV doxy 05/31 MRSA nares pending Neb Ipratropium and albuterol q.4 hours Sputum culture pending Lactic unremarkable Mechanical fall without LOC Head CT unremarkable Microscopic hematuria Chronic Wilks catheter UA shows 2+ blood in 158 RBC Lovenox 40 mg sc daily Failed swallow eval once, Pending 2nd swallow eval DIET : NPO ON accu checks Goals of care discussed with the patient, caregiver and (rashi over the phone), over 30 minutes DNR Plan discussed with patient and the nurse in which all questions have been answered Plan discussed with: Other Date of Service: Jun 01, 2024 Billing Provider: MARY VU MD Common Visit Codes: [id number] INP/OBS CARE(HIGH) MARY VU MD Jun 01, 2024 17:55
[2024-06-01] MEDS: D5W/SOD CHL 0.45% 1,000 ML IV SCH (19:57)
[2024-06-02] VITALS (20 sets, daily range): BP systolic 130–153; BP diastolic 66–87; PULSE 68–104; RESP 16–20; TEMP 97.3–98.7; O2SAT 93–100
[2024-06-02] MEDS ORDERED: CLINIMIX PER PHARMACY 0 ML IV SCH (11:30)
[2024-06-02] MEDS ORDERED: DEXTROSE (50%) 50ML SYRG IV SCH (12:30)
--- NOTE | 2024-06-02 12:37 | DVHPNRES ---
Progress Note Date Seen: Jun 02, 2024 Resident Creating Document: SANTIAGO TAVAREZ RESIDENT Medical Necessity Reason Pt with a Central, PICC or Fol: Yes The following are medically ne: Wilks Catheter Subjective Review of Systems VISHAL BATEMAN is a 74-year-old male with a PMH of cerebral palsy by and scoliosis presented to the accompanied by caregiver with the chief complaints of worsening of generalized weakness for past 2 weeks. Caregiver reported patient has been not eating, drinking for past 3 days and also usually patient can get himself up to chair and bedside commode med for past 2 weeks he is unable to transfer himself to wheelchair and found on the floor 2 times likely fall from bed. Caregiver denies fever, nausea, vomiting, flu-like symptoms, and other acute associated symptoms. Patient reported back pain himself. But denies any other complaint. PMH: Cerebral palsy, scoliosis PSH: Denies Family history: Reviewed, noncontributory Social history: Lives alone at home. Denies smoking, alcohol and other drug abuse Allergies: Sulfa allergies Home medications: Baclofen 10 mg 06/01 - Patient seen and examined at the bedside. CT head unremarkable. Failed Swallow eval. 05/31 - patient seen and examined at the bedside. Repeat swallow eval pending. White cell count increased to 14, serum bicarb going down, anion gap increased. Lactic acid within normal limit. Antibiotics broadened. Failed swallow eval twice now. 06/01-Dr. Joyce:HA May wants to proceed with hospice. Patient was prior on hospice at home but was not getting adequate care. We will consult social to help with hospice and discharge planning. We will get MRI since dysphagia is new for the patient. 06/02-patient seen and examined at the bedside. No acute distress. Started Clinimix. Objective vital signs Vital Sign Date Time Temp Pulse Resp B/P (MAP) Pulse Ox O2 Delivery O2 Flow Rate FiO2 06/02/24 10:14 81 16 98 06/02/24 10:08 Room Air 0.0 06/02/24 10:08 21 06/02/24 05:00 97.5 149/67 (94) 97.5 Total Intake and Output 06/01/24 06/01/24 06/02/24 15:00 23:00 07:00 Intake Total 380 ml 250 ml Output Total 900 ml Balance -520 ml 250 ml medications Current Medications Medications Dose Ordered Sig/Elian Route Start Time Stop Time Status Last Admin Dose Admin Sodium Chloride 1,000 ml @ 60 mls/hr [id number] IV 05/29/24 21:00 06/02/24 10:29 60 MLS/HR Docusate Sodium 100 mg BIDPRN PRN PO 05/29/24 21:00 Enoxaparin Sodium 40 mg DAILY SC 05/30/24 10:00 06/02/24 10:18 40 MG Acetaminophen 650 mg Q6HP PRN PO 05/29/24 21:00 Morphine Sulfate 2 mg Q4HPRN PRN IV 05/29/24 21:00 05/31/24 09:00 2 MG Nitroglycerin 0.4 mg Q5MINP PRN SL 05/29/24 21:00 Morphine Sulfate 2 mg Q30M PRN IV 05/29/24 21:00 Ipratropium [place] 0.5 mg Q4HWA NEB 05/30/24 14:00 06/02/24 10:08 0.5 MG Doxycycline Hyclate 100 ml @ 50 mls/hr Q12H IV 05/31/24 18:00 06/02/24 06:47 50 MLS/HR Albuterol 1.25 mg Q4HR NEB 05/31/24 14:00 06/02/24 10:08 1.25 MG Piperacillin Sod/ Tazobactam Sod 100 ml @ 100 mls/hr Q6H IV 06/01/24 05:00 06/02/24 10:18 100 MLS/HR Dextrose/Sodium Chloride 1,000 ml @ 80 mls/hr [id number] IV 06/01/24 20:00 06/02/24 06:58 80 MLS/HR Amino Acids 0 ml @ 0 mls/hr PER PHARMACY IV 06/02/24 11:30 Diagnostic Test (Pha) 1 strip Q6HR 06/02/24 18:00 Insulin Human Regular FOLLOW SLIDING SCALE Q6HR SC 06/02/24 18:00 Dextrose 50 ml UD IV 06/02/24 12:30 Amino Acids/ Electrolytes/ Dextrose 1,000 ml @ 41 mls/hr DAILY@2200 IV 06/02/24 22:00 Examination Elderly male patient lying in bed, in no acute distress, General: Cachectic-looking, afebrile, palor, mucosae are moist Cardiovascular: Regular S1 and S2. No murmurs, gallops or rubs. No JVD elevation. No pedal edema Respiratory: Normal B/L air entry on room air. Clear lung sounds on auscultation Abdomen: Soft, nontender, nondistended, normoactive bowel sounds, no rebound tenderness, no organomegaly, no masses. Wilks seen Genitourinary: Deferred MSK/skin: Mobilizes 4 limbs. Skin is dry and warm Neurological: No motor, no sensitive deficits, normal speech. Pupils are isocoric and reactive. Psych/Mental Status: A/Ox2 laboratory and microbiology Laboratory Tests 06/01/24 06:35 Test 06/01/24 06:35 Range/Units Serum Glucose 160 H 74-106 mg/dL Microbiology Date/Time Source Procedure Growth Status 05/30/24 22:30 Nose MRSA Screen - Final Complete 05/29/24 17:44 Blood Blood Culture - Preliminary NO GROWTH AFTER 72 HOURS OF INCUBATION. Resulted Labs and/or images reviewed: Labs reviewed by me, Image(s) reviewed by me Problem List/Assessment/Plan Problem List/Assessment/Plan Generalized weakness probably secondary to IV volume depletion and Pneumonia History of cerebral palsy CT head unremarkable Continue IV fluid Dysphagia - new onset Failure to thrive Started Clinimix per pharmacy 06/02 Sepsis secondary to Pneumonia, gram positive and Negative IV Ceftriaxone and IV azithro 05/30. Discontinued 05/31 IV antibiotics broadened to IV Zosyn and IV doxy 05/31 MRSA nares pending Neb Ipratropium and albuterol q.4 hours Sputum culture pending Lactic unremarkable Mechanical fall without LOC Head CT unremarkable Microscopic hematuria Chronic Wilks catheter Mild Anemia, likely normocytic UA shows 2+ blood in 158 RBC Lovenox 40 mg sc daily Failed swallow eval once, second swallow eval also failed. DIET : NPO, Clinimix per pharmacy ON accu checks Consulted social science teacher for hospice with placement. Goals of care discussed with the patient, caregiver and (niece over the phone), over 30 minutes DNR Plan discussed with patient and the nurse in which all questions have been answered Case discussed with Dr. Joyce Plan discussed with: Patient, Other (neice) My Orders My Orders Orders - SANTIAGO TAVAREZ RESIDENT Procedure Category Date Status Time Clinimix Per Pharmacy PHA 06/02/24 In Process 11:30 Comprehensive LAB 06/02/24 Logged Metabolic Panel 12:24 Phosphorus LAB 06/02/24 Logged 12:24 Glucose Blood PHA 06/02/24 In Process (Accu-Chek Comfort 18:00 Insulin R (Human) PHA 06/02/24 In Process (Insulin R) 18:00 Dextrose 50% Syringe PHA 06/02/24 In Process 12:30 Comprehensive LAB 06/03/24 Verified Metabolic Panel 04:00 Magnesium LAB 06/03/24 Verified 04:00 Phosphorus LAB 06/03/24 Verified 04:00 Triglycerides LAB 06/03/24 Verified 04:00 Clinimix Per Pharmacy MIGUEL ANGEL 06/02/24 In Process 22:00 Amino Acid Infusion PHA 06/02/24 In Process In D10w (Clinimix 4. 22:00 Date of Service: Jun 02, 2024 Billing Provider: MARY VU MD Common Visit Codes: [id number] INP/OBS CARE(HIGH) SANTIAGO TAVAREZ RESIDENT Jun 02, 2024 12:37 MARY VU MD Jun 03, 2024 00:21
[2024-06-02 13:37] LABS: Alanine Aminotransferase 16 U/L (7-40); Albumin 4.2 g/dL (3.2-4.8); Alkaline Phosphatase 61 U/L (46-116); Anion Gap 11 (5-15); Aspartate Aminotransferase 27 U/L (13-40); Calcium 9.3 mg/dL (8.7-10.4); Carbon Dioxide 25 mmol/L (20-31); Chloride 105 mmol/L (98-107); Phosphorus 2.8 mg/dL (2.4-5.1); Sodium 141 mmol/L (136-145)
[2024-06-02 13:38] LABS: Bilirubin, Total 0.7 mg/dL (0.2-1.0); Total Protein 6.7 g/dL (5.7-8.2)
[2024-06-02 13:49] LABS: BUN/Creatinine Ratio 9.6 (10.0-20.0); Blood Urea Nitrogen < 5 mg/dL (9-23); Glucose 130 mg/dL (74-106); Potassium 3.4 mmol/L (3.5-5.1)
[2024-06-02] MEDS: InsuLIN REG 1unit/0.01ml Soln (100units/ml) SC SCH (18:00)
[2024-06-02] MEDS: ACCU-CHEK COMFORT CURVE STRIP VI SCH (18:07)
[2024-06-02] MEDS: AMINO ACID INFUSION IN D10W 1,000 ML IV SCH (20:34)
[2024-06-03] VITALS (21 sets, daily range): BP systolic 95–162; BP diastolic 55–82; PULSE 61–107; RESP 16–20; TEMP 97.6–99.7; O2SAT 93–100
[2024-06-03 08:05] LABS: Alanine Aminotransferase 12 U/L (7-40); Albumin 4.3 g/dL (3.2-4.8); Alkaline Phosphatase 58 U/L (46-116); Anion Gap 9 (5-15); Aspartate Aminotransferase 14 U/L (13-40); BUN/Creatinine Ratio 13.2 (10.0-20.0); Calcium 9.4 mg/dL (8.7-10.4); Carbon Dioxide 29 mmol/L (20-31); Chloride 103 mmol/L (98-107); Magnesium 1.7 mg/dL (1.6-2.6); Sodium 141 mmol/L (136-145); Triglycerides 103 mg/dL (< 150)
[2024-06-03 08:07] LABS: Total Protein 6.5 g/dL (5.7-8.2)
[2024-06-03 08:16] LABS: Blood Urea Nitrogen 7 mg/dL (9-23); Glucose 138 mg/dL (74-106); Phosphorus 2.1 mg/dL (2.4-5.1); Potassium 2.8 mmol/L (3.5-5.1)
[2024-06-03 08:17] LABS: Bilirubin, Total 0.7 mg/dL (0.2-1.0)
[2024-06-03] MEDS: POTASSIUM CHL 20MEQ/100ML 100 ML IV SCH (13:45)
[2024-06-03] MEDS: MAGNESIUM SULFATE 1GM/100ML 100 ML IV ONE (15:15)
--- NOTE | 2024-06-03 16:12 | DVHPNRES ---
Progress Note Date Seen: Jun 03, 2024 Resident Creating Document: SANTIAGO TAVAREZ RESIDENT Medical Necessity Reason Pt with a Central, PICC or Fol: Yes The following are medically ne: Wilks Catheter Subjective Review of Systems VISHAL BATEMAN is a 74-year-old male with a PMH of cerebral palsy by and scoliosis presented to the accompanied by caregiver with the chief complaints of worsening of generalized weakness for past 2 weeks. Caregiver reported patient has been not eating, drinking for past 3 days and also usually patient can get himself up to chair and bedside commode med for past 2 weeks he is unable to transfer himself to wheelchair and found on the floor 2 times likely fall from bed. Caregiver denies fever, nausea, vomiting, flu-like symptoms, and other acute associated symptoms. Patient reported back pain himself. But denies any other complaint. PMH: Cerebral palsy, scoliosis PSH: Denies Family history: Reviewed, noncontributory Social history: Lives alone at home. Denies smoking, alcohol and other drug abuse Allergies: Sulfa allergies Home medications: Baclofen 10 mg 06/01 - Patient seen and examined at the bedside. CT head unremarkable. Failed Swallow eval. 05/31 - patient seen and examined at the bedside. Repeat swallow eval pending. White cell count increased to 14, serum bicarb going down, anion gap increased. Lactic acid within normal limit. Antibiotics broadened. Failed swallow eval twice now. 06/01-Dr. Joyce:HA markham Yadira wants to proceed with hospice. Patient was prior on hospice at home but was not getting adequate care. We will consult social to help with hospice and discharge planning. We will get MRI since dysphagia is new for the patient. 06/02-patient seen and examined at the bedside. No acute distress. Started Clinimix. 06/03 - . Patient seen and examined at the bedside. Patient refused PEG tube placement. Agrees with parenteral nutrition at this time. Objective vital signs Vital Sign Date Time Temp Pulse Resp B/P (MAP) Pulse Ox O2 Delivery O2 Flow Rate FiO2 06/03/24 13:36 85 16 100 06/03/24 13:30 Room Air* 0 21 06/03/24 13:00 97.7 127/82 (97) 97.7 Total Intake and Output 06/02/24 06/02/24 06/03/24 15:00 23:00 07:00 Intake Total 10 ml 800 ml 630 ml Output Total 1550 ml 300 ml Balance 10 ml -750 ml 330 ml medications Current Medications Medications Dose Ordered Sig/Elian Route Start Time Stop Time Status Last Admin Dose Admin Sodium Chloride 1,000 ml @ 60 mls/hr [id number] IV 05/29/24 21:00 06/02/24 10:29 60 MLS/HR Docusate Sodium 100 mg BIDPRN PRN PO 05/29/24 21:00 Enoxaparin Sodium 40 mg DAILY SC 05/30/24 10:00 06/03/24 11:44 40 MG Acetaminophen 650 mg Q6HP PRN PO 05/29/24 21:00 Morphine Sulfate 2 mg Q4HPRN PRN IV 05/29/24 21:00 05/31/24 09:00 2 MG Nitroglycerin 0.4 mg Q5MINP PRN SL 05/29/24 21:00 Morphine Sulfate 2 mg Q30M PRN IV 05/29/24 21:00 Ipratropium [place] 0.5 mg Q4HWA [facility] 05/30/24 14:00 06/03/24 13:29 0.5 MG Doxycycline Hyclate 100 ml @ 50 mls/hr Q12H IV 05/31/24 18:00 06/03/24 07:46 50 MLS/HR Albuterol 1.25 mg Q4HR NEB 05/31/24 14:00 06/03/24 13:30 1.25 MG Piperacillin Sod/ Tazobactam Sod 100 ml @ 100 mls/hr Q6H IV 06/01/24 05:00 06/03/24 11:43 100 MLS/HR Amino Acids 0 ml @ 0 mls/hr PER PHARMACY IV 06/02/24 11:30 Diagnostic Test (Pha) 1 strip Q6HR 06/02/24 18:00 06/03/24 11:33 1 STRIP Insulin Human Regular FOLLOW SLIDING SCALE Q6HR SC 06/02/24 18:00 Dextrose 50 ml UD IV 06/02/24 12:30 Amino Acids/ Electrolytes/ Dextrose 1,000 ml @ 41 mls/hr DAILY@2200 IV 06/02/24 22:00 06/02/24 20:34 41 MLS/HR Examination Elderly male patient lying in bed, in no acute distress, General: Cachectic-looking, afebrile, palor, mucosae are moist Cardiovascular: Regular S1 and S2. No murmurs, gallops or rubs. No JVD elevation. No pedal edema Respiratory: Normal B/L air entry on room air. Clear lung sounds on auscultation Abdomen: Soft, nontender, nondistended, normoactive bowel sounds, no rebound tenderness, no organomegaly, no masses. Wilks seen Genitourinary: Deferred MSK/skin: Mobilizes 4 limbs. Skin is dry and warm Neurological: No motor, no sensitive deficits, normal speech. Pupils are isocoric and reactive. Psych/Mental Status: A/Ox2 laboratory and microbiology Laboratory Tests 06/03/24 06:29 06/01/24 06:35 Test 06/03/24 06:29 Range/Units Serum Glucose 138 H 74-106 mg/dL Microbiology Date/Time Source Procedure Growth Status 05/30/24 22:30 Nose MRSA Screen - Final Complete 05/29/24 17:44 Blood Blood Culture - Preliminary NO GROWTH AFTER 72 HOURS OF INCUBATION. Resulted Labs and/or images reviewed: Labs reviewed by me, Image(s) reviewed by me Problem List/Assessment/Plan Problem List/Assessment/Plan Generalized weakness probably secondary to IV volume depletion and Pneumonia History of cerebral palsy ? Stroke CT head unremarkable Continue IV fluid Could not complete MRI as the patient could not lie still Dysphagia - new onset Failure to thrive Started Clinimix per pharmacy 06/02 Sepsis secondary to Pneumonia, gram positive and Negative IV Ceftriaxone and IV azithro 05/30. Discontinued 05/31 IV antibiotics broadened to IV Zosyn and IV doxy 05/31 MRSA nares pending Neb Ipratropium and albuterol q.4 hours Sputum culture pending Lactic unremarkable Mechanical fall without LOC Head CT unremarkable Microscopic hematuria Chronic Wilks catheter Mild Anemia, likely normocytic UA shows 2+ blood in 158 RBC Lovenox 40 mg sc daily Failed swallow eval once, second swallow eval also failed. DIET : NPO, Clinimix per pharmacy ON accu checks Consulted director of social media marketing for hospice with placement. Goals of care discussed with the patient, caregiver and (niece over the phone), over 30 minutes DNR Discussed aspect of feeling with the patient in front of the nurse Vanda, patient refused feeding tube placement, agrees with parental nutrition. Plan discussed with patient and the nurse in which all questions have been answered Case discussed with Dr. Joyce Plan discussed with: Patient, Other (Niece and caregiver were the phone) My Orders My Orders Orders - SANTIAGO TAVAREZ Procedure Category Date Status Time Comprehensive LAB 06/04/24 Verified Metabolic Panel 04:00 Magnesium LAB 06/04/24 Verified 04:00 Phosphorus LAB 06/04/24 Verified 04:00 Clinimix Per Pharmacy MIGUEL ANGEL 06/03/24 In Process 22:00 Communication Order ORDERS 06/03/24 Transmitted 14:32 Date of Service: Jun 03, 2024 Billing Provider: MARY VU MD Common Visit Codes: [id number] INP/OBS CARE(HIGH) SANTIAGO TAVAREZ Jun 03, 2024 16:12 MARY VU MD Jun 11, 2024 23:02
[2024-06-03] MEDS: POTASSIUM CHL 20MEQ/100ML 100 ML IV ONE (17:21)
[2024-06-04] VITALS (22 sets, daily range): BP systolic 100–144; BP diastolic 50–79; PULSE 69–97; RESP 14–18; TEMP 96.8–98.4; O2SAT 93–100
[2024-06-04 07:06] LABS: Alanine Aminotransferase 15 U/L (7-40); Albumin 3.9 g/dL (3.2-4.8); Alkaline Phosphatase 51 U/L (46-116); Anion Gap 9 (5-15); Aspartate Aminotransferase 15 U/L (13-40); Bilirubin, Total 0.6 mg/dL (0.2-1.0); Blood Urea Nitrogen 11 mg/dL (9-23); Calcium 9.3 mg/dL (8.7-10.4); Carbon Dioxide 28 mmol/L (20-31); Chloride 104 mmol/L (98-107); Magnesium 1.8 mg/dL (1.6-2.6); Sodium 141 mmol/L (136-145)
[2024-06-04 07:09] LABS: Glucose 139 mg/dL (74-106); Potassium 3.1 mmol/L (3.5-5.1)
[2024-06-04] MEDS: POTASSIUM CHL 20MEQ/100ML 100 ML IV SCH (09:30)
[2024-06-04] MEDS: MAGNESIUM SULFATE 1GM/100ML 100 ML IV ONE (10:14)
--- NOTE | 2024-06-04 13:33 | DVHPNRES ---
Progress Note Date Seen: Jun 04, 2024 Resident Creating Document: SANTIAGO TAVAREZ RESIDENT Medical Necessity Reason Pt with a Central, PICC or Fol: Yes The following are medically ne: Wilks Catheter Subjective Review of Systems VISHAL BATEMAN is a 74-year-old male with a PMH of cerebral palsy by and scoliosis presented to the accompanied by caregiver with the chief complaints of worsening of generalized weakness for past 2 weeks. Caregiver reported patient has been not eating, drinking for past 3 days and also usually patient can get himself up to chair and bedside commode med for past 2 weeks he is unable to transfer himself to wheelchair and found on the floor 2 times likely fall from bed. Caregiver denies fever, nausea, vomiting, flu-like symptoms, and other acute associated symptoms. Patient reported back pain himself. But denies any other complaint. PMH: Cerebral palsy, scoliosis PSH: Denies Family history: Reviewed, noncontributory Social history: Lives alone at home. Denies smoking, alcohol and other drug abuse Allergies: Sulfa allergies Home medications: Baclofen 10 mg 06/01 - Patient seen and examined at the bedside. CT head unremarkable. Failed Swallow eval. 05/31 - patient seen and examined at the bedside. Repeat swallow eval pending. White cell count increased to 14, serum bicarb going down, anion gap increased. Lactic acid within normal limit. Antibiotics broadened. Failed swallow eval twice now. 06/01-Dr. Joyce: HA May wants to proceed with hospice. Patient was prior on hospice at home but was not getting adequate care. We will consult social to help with hospice and discharge planning. We will get MRI since dysphagia is new for the patient. 06/02-patient seen and examined at the bedside. No acute distress. Started Clinimix. 06/03 - . Patient seen and examined at the bedside. Patient refused PEG tube placement. Agrees with parenteral nutrition at this time. 06/04 - patient seen and examined at the bedside, POJason came to see the patient, patient agrees for PEG tube placement. GI consulted. Objective vital signs Vital Sign Date Time Temp Pulse Resp B/P (MAP) Pulse Ox O2 Delivery O2 Flow Rate FiO2 06/04/24 10:56 96 Room Air* 0 21 06/04/24 10:51 83 18 06/04/24 09:00 98.4 137/69 (91) 98.4 Total Intake and Output 06/03/24 06/03/24 06/04/24 15:00 23:00 07:00 Intake Total 200 ml 300 ml 200 ml Output Total 1550 ml 750 ml Balance 200 ml -1250 ml -550 ml medications Current Medications Medications Dose Ordered Sig/Elian Route Start Time Stop Time Status Last Admin Dose Admin Sodium Chloride 1,000 ml @ 60 mls/hr [id number] IV 05/29/24 21:00 06/02/24 10:29 60 MLS/HR Docusate Sodium 100 mg BIDPRN PRN PO 05/29/24 21:00 Enoxaparin Sodium 40 mg DAILY SC 05/30/24 10:00 06/04/24 10:15 40 MG Acetaminophen 650 mg Q6HP PRN PO 05/29/24 21:00 Morphine Sulfate 2 mg Q4HPRN PRN IV 05/29/24 21:00 05/31/24 09:00 2 MG Nitroglycerin 0.4 mg Q5MINP PRN SL 05/29/24 21:00 Morphine Sulfate 2 mg Q30M PRN IV 05/29/24 21:00 Ipratropium [place] 0.5 mg Q4HWA NEB 05/30/24 14:00 06/04/24 10:51 0.5 MG Doxycycline Hyclate 100 ml @ 50 mls/hr Q12H IV 05/31/24 18:00 06/04/24 05:24 50 MLS/HR Albuterol 1.25 mg Q4HR NEB 05/31/24 14:00 06/04/24 10:51 1.25 MG Piperacillin Sod/ Tazobactam Sod 100 ml @ 100 mls/hr Q6H IV 06/01/24 05:00 06/04/24 10:15 100 MLS/HR Amino Acids 0 ml @ 0 mls/hr PER PHARMACY IV 06/02/24 11:30 Diagnostic Test (Pha) 1 strip Q6HR 06/02/24 18:00 06/04/24 12:00 1 STRIP Insulin Human Regular FOLLOW SLIDING SCALE Q6HR SC 06/02/24 18:00 06/04/24 12:33 2 UNITS Dextrose 50 ml UD IV 06/02/24 12:30 Amino Acids/ Electrolytes/ Dextrose 1,000 ml @ 41 mls/hr DAILY@2200 IV 06/02/24 22:00 06/03/24 22:48 41 MLS/HR Examination Elderly male patient lying in bed, in no acute distress, General: Cachectic-looking, afebrile, palor, mucosae are moist Cardiovascular: Regular S1 and S2. No murmurs, gallops or rubs. No JVD elevation. No pedal edema Respiratory: Normal B/L air entry on room air. Clear lung sounds on auscultation Abdomen: Soft, nontender, nondistended, normoactive bowel sounds, no rebound tenderness, no organomegaly, no masses. Wilks seen Genitourinary: Deferred MSK/skin: Mobilizes 4 limbs. Skin is dry and warm Neurological: No motor, no sensitive deficits, normal speech. Pupils are isocoric and reactive. Psych/Mental Status: A/Ox2 laboratory and microbiology Laboratory Tests 06/04/24 06:14 06/01/24 06:35 Test 06/04/24 06:14 Range/Units Serum Glucose 139 H 74-106 mg/dL Microbiology Date/Time Source Procedure Growth Status 05/30/24 22:30 Nose MRSA Screen - Final Complete 05/29/24 17:44 Blood Blood Culture - Final NO GROWTH AFTER 5 DAYS OF INCUBATION. Complete Labs and/or images reviewed: Labs reviewed by me, Image(s) reviewed by me Problem List/Assessment/Plan Problem List/Assessment/Plan Generalized weakness probably secondary to IV volume depletion and Pneumonia History of cerebral palsy ? Stroke CT head unremarkable Continue IV fluid Could not complete MRI as the patient could not lie still Dysphagia - new onset Failure to thrive Started Clinimix per pharmacy 06/02 Sepsis secondary to Pneumonia, gram positive and Negative IV Ceftriaxone and IV azithro 05/30. Discontinued 05/31 IV antibiotics broadened to IV Zosyn and IV doxy 05/31 MRSA nares pending Neb Ipratropium and albuterol q.4 hours Sputum culture pending Lactic unremarkable Mechanical fall without LOC Head CT unremarkable Microscopic hematuria Chronic Wilks catheter Mild Anemia, likely normocytic UA shows 2+ blood in 158 RBC Lovenox 40 mg sc daily Failed swallow eval once, second swallow eval also failed. DIET : NPO, Clinimix per pharmacy ON accu checks Goals of care discussed with the patient, caregiver and (niece over the phone), over 30 minutes DNR Discussed aspect of feeling with the patient in front of the nurse Vanda, and POA (niece), patient agreed for PEG tube placement. GI consulted. Plan discussed with patient and the nurse in which all questions have been answered Case discussed with Dr. Joyce Plan discussed with: Patient, Other (POA niece) My Orders My Orders Orders - SANTIAGO TAVAREZ Procedure Category Date Status Time Communication Order ORDERS 06/03/24 Transmitted 14:32 * Swallow Request ST 06/03/24 Transmitted 17:42 * Gi Dvh Content Analyst CONS 06/04/24 Transmitted 13:28 Date of Service: Jun 04, 2024 Billing Provider: MARY VU MD Common Visit Codes: [id number] INP/OBS CARE(HIGH) SANTIAGO TAVAREZ Jun 04, 2024 13:33 MARY VU MD Jun 11, 2024 23:06
[2024-06-04 14:57] LABS: Phosphorus 2.8 mg/dL (2.4-5.1)
--- NOTE | 2024-06-04 15:40 | DVHCONRES ---
Date Seen: Jun 04, 2024 Resident Creating Document: CATHERINE TINSLEY RESIDENT Referring Physician DR Connelly Reason for Consultation Peg tube History of Present Illness The patient is a 74-year-old male with past medical history cerebral palsy, kyphoscoliosis brought to the hospital by caregiver for worsening generalized weakness for past few weeks. The patient also had new onset dysphagia and failure to thrive, aorta with CT head which was unremarkable, MRI was not able to get 10. Underwent at least 3 swallow evaluation which she failed. The patient is nonverbal usually answer in yes or no. Given possible stroke, dysphagia, failure to thrive, not able to pass a swallow test, GI consultation has been done for PEG tube. No any other new complaint PMH: Cerebral palsy, scoliosis Past Surgical History As per HPI Family History: Cerebrovascular accident (CVA) G8 MOTHER G8 FATHER G8 SISTER Allergies: Coded Allergies: Sulfa Antibiotics (Verified Allergy, Unknown, 05/29/24) Home Meds Unable to Obtain Active Prescriptions or Reported Meds Current Medications Current Medications Medications (Trade) Dose Ordered Sig/Elian Route PRN Reason Start Time Stop Time Status Last Admin Potassium Chloride 100 ml @ 50 mls/hr Q2H IV 06/04/24 07:30 06/04/24 11:29 DC 06/04/24 12:32 Review of Systems The patient is bed-bound, answer question yes or no, no other complaints. Patient is poor historian Vital Signs Vital Signs Date Time Temp Pulse Resp B/P (MAP) Pulse Ox O2 Delivery O2 Flow Rate FiO2 06/04/24 14:40 82 18 100 06/04/24 10:56 Room Air* 0 21 06/04/24 09:00 98.4 137/69 (91) 98.4 Physical Exam General Appearance: Cachectic, BMI 14.5, not in acute distress, answers in yes or no. Not able to answer in full sentence. Head Exam: Normal inspection Neck Exam: Normal inspection. Non-tender. Normal alignment Pulmonary/Respiratory: Chest non-tender. Clear bilateral breath sounds Cardiovascular/Chest: Regular rate and rhythm. No murmurs. No JVD. Peripheral Pulses: 2+ Radial (R). 2+ Radial (L). 2+ Pedal (R). 2+ Pedal (L) Musculoskeletal : Kyphoscoliosis Abdominal Exam: Normal bowel sounds. Soft. Nontender. No hepatospenomegaly. No masses Ankle Exam: Negative ankle edema Lower extremities: Negative lower extremity edema Neuro/Mental Status: Alert, not oriented to time place and person. Labs/Diagnostic Data Labs Test 06/04/24 06:14 06/04/24 05:49 06/03/24 06:29 06/01/24 06:35 Range/Units Sodium Level 141 136-145 mmol/L Potassium Level 3.1 L 3.5-5.1 mmol/L Chloride Level 104 98-107 mmol/L Carbon Dioxide Level 28 20-31 mmol/L Anion Gap 9 5-15 Blood Urea Nitrogen 11 9-23 mg/dL Creatinine 0.50 L 0.700-1.30 mg/dL Glomerular Filtration Rate Calc 106 >90 mL/min BUN/Creatinine Ratio 22.0 H 10.0-20.0 Serum Glucose 139 H 74-106 mg/dL Calcium Level 9.3 8.7-10.4 mg/dL Phosphorus Level 2.8 2.4-5.1 mg/dL Magnesium Level 1.8 1.6-2.6 mg/dL Total Bilirubin 0.6 0.2-1.0 mg/dL Aspartate Amino Transferase (AST) 15 13-40 U/L Alanine Aminotransferase (ALT) 15 7-40 U/L Alkaline Phosphatase 51 46-116 U/L Total Protein 6.0 5.7-8.2 g/dL Albumin 3.9 3.2-4.8 g/dL POC Glucose 127 H 70-106 mg/dl Triglycerides Level 103 < 150 mg/dL White Blood Count 9.2 # 4.4-10.8 10^3/uL Red Blood Count 4.11 L 4.5-5.90 10^6/uL Hemoglobin 13.1 L 13.5-17.5 g/dL Hematocrit 38.5 #L 41.0-53.0 % Mean Corpuscular Volume 93.5 80.0-100.0 fL Mean Corpuscular Hemoglobin 31.8 28.0-32.0 pg Mean Corpuscular Hemoglobin Concent 34.0 32.0-36.0 g/dL Red Cell Distribution Width 12.8 11.8-14.3 % Platelet Count 107 L 140-450 10^3/uL Mean Platelet Volume 10.1 6.9-10.8 fL Neutrophils (%) (Auto) 75.2 37.0-80.0 % Lymphocytes (%) (Auto) 13.7 10.0-50.0 % Monocytes (%) (Auto) 6.0 0.0-12.0 % Eosinophils (%) (Auto) 4.8 0.0-7.0 % Basophils (%) (Auto) 0.3 0.0-2.0 % Neutrophils # (Auto) 6.9 1.6-8.6 10 ^3/uL Lymphocytes # (Auto) 1.3 0.4-5.4 10 ^3/uL Monocytes # (Auto) 0.5 0-1.3 10 ^3/uL Eosinophils # (Auto) 0.4 0-0.8 10 ^3/uL Basophils # (Auto) 0 0-0.2 10 ^3/uL Nucleated Red Blood Cells 0.1 % Test 05/31/24 10:40 05/30/24 22:30 05/30/24 18:35 05/30/24 11:55 Range/Units Lactic Acid Level 1.3 0.4-2.0 mmol/L Influenza Type A Antigen Negative Negative Influenza Type B Antigen Negative Negative SARS-CoV-2 Antigen (Rapid) Negative NEGATIVE Erythrocyte Sedimentation Rate 12 0-20 mm/hr Test 05/30/24 06:45 05/29/24 23:57 05/29/24 18:38 Range/Units C-Reactive Protein High Sensitivity 0.12 <1.0 mg/dL Hemoglobin A1c 5.4 <5.7 % A1C Direct Bilirubin < 0.1 <0.3 mg/dL B-Type Natriuretic Peptide 26.17 0-100 pg/mL Cholesterol Level 174 < 200 mg/dL LDL Cholesterol 120 H < 100 mg/dL HDL Cholesterol 41 40-59 mg/dL Thyroid Stimulating Hormone (TSH) 3.77 0.55-4.78 uIU/mL Urine Color Yellow Yellow Urine Clarity Clear Clear Urine pH 6.0 5.0-9.0 Urine Specific [place] 1.029 1.001-1.035 Urine Protein Trace H Negative Urine Ketones Trace Negative Urine Blood 2+ H Negative /uL Urine Nitrite Negative Negative Urine Bilirubin Negative Negative Urine Urobilinogen Normal Negative mg/dL Urine Leukocyte Esterase Negative Negative /uL Urine RBC 158 0 - 3 /hpf Urine Microscopic WBC 2 0-3 /HPF Urine Squamous Epithelial Cells Few <5 /hpf Urine Bacteria None seen None Seen /hpf Urine Mucus Few None Seen Urine Glucose Normal Normal mg/dL Urine Opiates Screen Neg NEGATIVE Urine Fentanyl Screen Neg NEGATIVE Urine Barbiturates Screen Neg NEGATIVE Urine Phencyclidine Screen Neg NEGATIVE Urine Amphetamines Screen Neg NEGATIVE Urine Benzodiazepines Screen Neg NEGATIVE Urine Cocaine Screen Neg NEGATIVE Urine Cannabinoids Screen Neg NEGATIVE Microbiology Date/Time Source Procedure Growth Status 05/30/24 22:30 Nose MRSA Screen - Final Complete 05/29/24 17:44 Blood Blood Culture - Final NO GROWTH AFTER 5 DAYS OF INCUBATION. Complete Assessment Failure to thrive Dysphagia Fails swallow evaluation Possible stroke Cerebral palsy BMI 14.5 kg/M2 Plan/recommendation Dr Chang -Patient has severe dysphagia likely due to stroke, given prolonged inability to meet nutritional need via orally, low BMI with malnutrition or weight loss likely meets criteria for PEG tube. -possibly EGD on Monday -family agreed with PEG tube insertion -we will evaluate for coagulopathy and correct if needed -Continue to monitor labs including hemoglobin and hematocrit, maintain hemoglobin greater than eight -IV hydration -IV antibiotic as per primary team. -we will continue to follow with this patient. Plan discussed with: Patient, Other (RN) CATHERINE TINSLEY RESIDENT Jun 04, 2024 15:40
[2024-06-05] VITALS (22 sets, daily range): BP systolic 111–161; BP diastolic 74–97; PULSE 72–101; RESP 12–18; TEMP 97–99; O2SAT 94–100
[2024-06-05 04:18] LABS: INR 1.09 (0.9-1.15); Partial Thromboplastin Time 28.5 SEC (24.5-34.5); Prothrombin Time 11.5 sec (9.3-11.8)
[2024-06-05 04:23] LABS: Alanine Aminotransferase 28 U/L (7-40); Albumin 4.2 g/dL (3.2-4.8); Alkaline Phosphatase 56 U/L (46-116); Anion Gap 10 (5-15); Aspartate Aminotransferase 26 U/L (13-40); Bilirubin, Total 0.7 mg/dL (0.2-1.0); Blood Urea Nitrogen 12 mg/dL (9-23); Calcium 9.4 mg/dL (8.7-10.4); Carbon Dioxide 27 mmol/L (20-31); Chloride 104 mmol/L (98-107); Magnesium 1.9 mg/dL (1.6-2.6); Phosphorus 3.2 mg/dL (2.4-5.1); Sodium 141 mmol/L (136-145)
[2024-06-05 04:24] LABS: Total Protein 6.4 g/dL (5.7-8.2)
[2024-06-05 04:39] LABS: Glucose 110 mg/dL (74-106)
[2024-06-05 05:31] LABS: Basophils # (auto) 0 10 ^3/uL (0-0.2); Basophils % (auto) 0.6 % (0.0-2.0); Eosinophils # (auto) 0.3 10 ^3/uL (0-0.8); Eosinophils % (auto) 3.6 % (0.0-7.0); Hematocrit 39.6 % (41.0-53.0); Hemoglobin 13.2 g/dL (13.5-17.5); Lymphocytes # (auto) 1.3 10 ^3/uL (0.4-5.4); Lymphocytes % (auto) 17.6 % (10.0-50.0); Mean Corpuscular Hemoglobin 31.3 pg (28.0-32.0); Mean Corpuscular Hgb Conc. 33.3 g/dL (32.0-36.0); Monocytes # (auto) 0.5 10 ^3/uL (0-1.3); Monocytes % (auto) 6.5 % (0.0-12.0); Neutrophils # (auto) 5.4 10 ^3/uL (1.6-8.6); Neutrophils % (auto) 71.7 % (37.0-80.0); Platelet Count (auto) 206 10^3/uL (140-450); Red Blood Cells 4.21 10^6/uL (4.5-5.90); White Blood Cell 7.6 10^3/uL (4.4-10.8)
[2024-06-05] MEDS: POTASSIUM CHL 20MEQ/100ML 100 ML IV SCH (09:00)
--- NOTE | 2024-06-05 15:22 | DVHPN2 ---
Progress Note Date Seen: Jun 05, 2024 Resident Creating Document: CATHERINE TINSLEY RESIDENT Medical Necessity Reason Pt with a Central, PICC or Fol: Yes The following are medically ne: Wilks Catheter Subjective Review of Systems The patient is a 74-year-old male with past medical history cerebral palsy, kyphoscoliosis brought to the hospital by caregiver for worsening generalized weakness for past few weeks. The patient also had new onset dysphagia and failure to thrive, aorta with CT head which was unremarkable, MRI was not able to get 10. Underwent at least 3 swallow evaluation which she failed. The patient is nonverbal usually answer in yes or no. Given possible stroke, dysphagia, failure to thrive, not able to pass a swallow test, GI consultation has been done for PEG tube. No any other new complaint PMH: Cerebral palsy, scoliosis No new complains. Objective vital signs Vital Sign Date Time Temp Pulse Resp B/P (MAP) Pulse Ox O2 Delivery O2 Flow Rate FiO2 06/05/24 14:24 99 Room Air* 0 21 06/05/24 14:24 75 18 06/05/24 12:48 97.3 111/93 (99) 97.3 Total Intake and Output 06/04/24 06/04/24 06/05/24 15:00 23:00 07:00 Intake Total 200 ml 200 ml 1050 ml Output Total 600 ml 875 ml Balance 200 ml -400 ml 175 ml medications Current Medications Medications Dose Ordered Sig/Elian Route Start Time Stop Time Status Last Admin Dose Admin Sodium Chloride 1,000 ml @ 60 mls/hr [id number] IV 05/29/24 21:00 06/05/24 03:00 60 MLS/HR Docusate Sodium 100 mg BIDPRN PRN PO 05/29/24 21:00 Enoxaparin Sodium 40 mg DAILY SC 05/30/24 10:00 06/05/24 11:04 40 MG Acetaminophen 650 mg Q6HP PRN PO 05/29/24 21:00 Ipratropium [place] 0.5 mg Q4HWA NEB 05/30/24 14:00 06/05/24 14:24 0.5 MG Doxycycline Hyclate 100 ml @ 50 mls/hr Q12H IV 05/31/24 18:00 06/05/24 06:25 50 MLS/HR Albuterol 1.25 mg Q4HR NEB 05/31/24 14:00 06/05/24 14:24 1.25 MG Piperacillin Sod/ Tazobactam Sod 100 ml @ 100 mls/hr Q6H IV 06/01/24 05:00 06/05/24 10:46 100 MLS/HR Amino Acids 0 ml @ 0 mls/hr PER PHARMACY IV 06/02/24 11:30 Diagnostic Test (Pha) 1 strip Q6HR 06/02/24 18:00 06/05/24 12:25 1 STRIP Insulin Human Regular FOLLOW SLIDING SCALE Q6HR SC 06/02/24 18:00 06/05/24 12:24 2 UNITS Dextrose 50 ml UD IV 06/02/24 12:30 Amino Acids/ Electrolytes/ Dextrose 1,000 ml @ 41 mls/hr DAILY@2200 IV 06/02/24 22:00 06/04/24 21:29 41 MLS/HR Hydralazine HCl 10 mg Q6HP PRN IV 06/05/24 07:00 Potassium Chloride/Sodium Chloride 1,000 ml @ 120 mls/hr Q8H20M IV 06/05/24 14:45 Examination General Appearance: Cachectic, BMI 14.5, not in acute distress, answers in yes or no. Not able to answer in full sentence. Head Exam: Normal inspection Neck Exam: Normal inspection. Non-tender. Normal alignment Pulmonary/Respiratory: Chest non-tender. Clear bilateral breath sounds Cardiovascular/Chest: Regular rate and rhythm. No murmurs. No JVD. Peripheral Pulses: 2+ Radial (R). 2+ Radial (L). 2+ Pedal (R). 2+ Pedal (L) Musculoskeletal : Kyphoscoliosis Abdominal Exam: Normal bowel sounds. Soft. Nontender. No hepatospenomegaly. No masses Ankle Exam: Negative ankle edema Lower extremities: Negative lower extremity edema Neuro/Mental Status: Alert, not oriented to time place and person. laboratory and microbiology Laboratory Tests 06/05/24 03:32 Test 06/05/24 03:32 Range/Units Serum Glucose 110 H 74-106 mg/dL Microbiology Date/Time Source Procedure Growth Status 05/30/24 22:30 Nose MRSA Screen - Final Complete 05/29/24 17:44 Blood Blood Culture - Final NO GROWTH AFTER 5 DAYS OF INCUBATION. Complete Problem List/Assessment/Plan Problem List/Assessment/Plan Failure to thrive Dysphagia Fails swallow evaluation Possible stroke Cerebral palsy BMI 14.5 kg/M2 Plan/recommendation Dr Chang Plan for peg tube on monday -Patient has severe dysphagia likely due to stroke, given prolonged inability to meet nutritional need via orally, low BMI with malnutrition or weight loss likely meets criteria for PEG tube. -family agreed with PEG tube insertion -we will evaluate for coagulopathy and correct if needed -Continue to monitor labs including hemoglobin and hematocrit, maintain hemoglobin greater than eight -IV hydration -IV antibiotic as per primary team. -we will continue to follow with this patient. Plan discussed with: Patient, Other (RN) CATHERINE TINSLEY RESIDENT Jun 05, 2024 15:22
[2024-06-05] MEDS: SOD CHL 0.9%/ KCL 40MEQ 1,000 ML IV SCH (15:23)
--- NOTE | 2024-06-05 16:24 | DVHPNRES ---
Progress Note Date Seen: Jun 05, 2024 Resident Creating Document: SANTIAGO TAVAREZ RESIDENT Medical Necessity Reason Pt with a Central, PICC or Fol: Yes The following are medically ne: Wilks Catheter Subjective Review of Systems VISHAL BATEMAN is a 74-year-old male with a PMH of cerebral palsy by and scoliosis presented to the accompanied by caregiver with the chief complaints of worsening of generalized weakness for past 2 weeks. Caregiver reported patient has been not eating, drinking for past 3 days and also usually patient can get himself up to chair and bedside commode med for past 2 weeks he is unable to transfer himself to wheelchair and found on the floor 2 times likely fall from bed. Caregiver denies fever, nausea, vomiting, flu-like symptoms, and other acute associated symptoms. Patient reported back pain himself. But denies any other complaint. PMH: Cerebral palsy, scoliosis PSH: Denies Family history: Reviewed, noncontributory Social history: Lives alone at home. Denies smoking, alcohol and other drug abuse Allergies: Sulfa allergies Home medications: Baclofen 10 mg 06/01 - Patient seen and examined at the bedside. CT head unremarkable. Failed Swallow eval. 05/31 - patient seen and examined at the bedside. Repeat swallow eval pending. White cell count increased to 14, serum bicarb going down, anion gap increased. Lactic acid within normal limit. Antibiotics broadened. Failed swallow eval twice now. 06/01-Dr. Joyce: HA May wants to proceed with hospice. Patient was prior on hospice at home but was not getting adequate care. We will consult social to help with hospice and discharge planning. We will get MRI since dysphagia is new for the patient. 06/02-patient seen and examined at the bedside. No acute distress. Started Clinimix. 06/03 - . Patient seen and examined at the bedside. Patient refused PEG tube placement. Agrees with parenteral nutrition at this time. 06/04 - patient seen and examined at the bedside, POA came to see the patient, patient agrees for PEG tube placement. GI consulted. 06/05- patient seen and examined at bedside. Potassium and magnesium replenised. GI scheduled PEG tube placement on 06/07 Objective vital signs Vital Sign Date Time Temp Pulse Resp B/P (MAP) Pulse Ox O2 Delivery O2 Flow Rate FiO2 06/05/24 14:24 99 Room Air* 0 21 06/05/24 14:24 75 18 06/05/24 12:48 97.3 111/93 (99) 97.3 Total Intake and Output 06/04/24 06/04/24 06/05/24 15:00 23:00 07:00 Intake Total 200 ml 200 ml 1050 ml Output Total 600 ml 875 ml Balance 200 ml -400 ml 175 ml medications Current Medications Medications Dose Ordered Sig/Elian Route Start Time Stop Time Status Last Admin Dose Admin Docusate Sodium 100 mg BIDPRN PRN PO 05/29/24 21:00 Enoxaparin Sodium 40 mg DAILY SC 05/30/24 10:00 06/05/24 11:04 40 MG Acetaminophen 650 mg Q6HP PRN PO 05/29/24 21:00 Ipratropium [place] 0.5 mg Q4HWA NEB 05/30/24 14:00 06/05/24 14:24 0.5 MG Doxycycline Hyclate 100 ml @ 50 mls/hr Q12H IV 05/31/24 18:00 06/05/24 06:25 50 MLS/HR Albuterol 1.25 mg Q4HR NEB 05/31/24 14:00 06/05/24 14:24 1.25 MG Piperacillin Sod/ Tazobactam Sod 100 ml @ 100 mls/hr Q6H IV 06/01/24 05:00 06/05/24 10:46 100 MLS/HR Amino Acids 0 ml @ 0 mls/hr PER PHARMACY IV 06/02/24 11:30 Diagnostic Test (Pha) 1 strip Q6HR 06/02/24 18:00 06/05/24 12:25 1 STRIP Insulin Human Regular FOLLOW SLIDING SCALE Q6HR SC 06/02/24 18:00 06/05/24 12:24 2 UNITS Dextrose 50 ml UD IV 06/02/24 12:30 Amino Acids/ Electrolytes/ Dextrose 1,000 ml @ 41 mls/hr DAILY@2200 IV 06/02/24 22:00 06/04/24 21:29 41 MLS/HR Hydralazine HCl 10 mg Q6HP PRN IV 06/05/24 07:00 Potassium Chloride/Sodium Chloride 1,000 ml @ 120 mls/hr Q8H20M IV 06/05/24 14:45 06/05/24 15:23 120 MLS/HR Examination Elderly male patient lying in bed, in no acute distress, General: Cachectic-looking, afebrile, palor, mucosae are moist Cardiovascular: Regular S1 and S2. No murmurs, gallops or rubs. No JVD elevation. No pedal edema Respiratory: Normal B/L air entry on room air. Clear lung sounds on auscultation Abdomen: Soft, nontender, nondistended, normoactive bowel sounds, no rebound tenderness, no organomegaly, no masses. Wilks seen Genitourinary: Deferred MSK/skin: Mobilizes 4 limbs. Skin is dry and warm Neurological: No motor, no sensitive deficits, normal speech. Pupils are isocoric and reactive. Psych/Mental Status: A/Ox2 laboratory and microbiology Laboratory Tests 06/05/24 03:32 Test 06/05/24 03:32 Range/Units Serum Glucose 110 H 74-106 mg/dL Microbiology Date/Time Source Procedure Growth Status 05/30/24 22:30 Nose MRSA Screen - Final Complete 05/29/24 17:44 Blood Blood Culture - Final NO GROWTH AFTER 5 DAYS OF INCUBATION. Complete Labs and/or images reviewed: Labs reviewed by me, Image(s) reviewed by me Problem List/Assessment/Plan Problem List/Assessment/Plan Generalized weakness probably secondary to possible acute stroke History of cerebral palsy Likely Stroke CT head unremarkable Continue IV fluid Could not complete MRI as the patient could not lie still Dysphagia - new onset Failure to thrive Started Clinimix per pharmacy 06/02 GI Consulted - PEG tube placement 06/07 Sepsis secondary to Pneumonia, gram positive and Negative IV Ceftriaxone and IV azithro 05/30. Discontinued 05/31 IV antibiotics broadened to IV Zosyn and IV doxy 05/31 MRSA nares pending Neb Ipratropium and albuterol q.4 hours Sputum culture pending Lactic unremarkable Mechanical fall without LOC Head CT unremarkable Microscopic hematuria Chronic Wilks catheter Mild Anemia, likely normocytic UA shows 2+ blood in 158 RBC Lovenox 40 mg sc daily Failed swallow eval once, second swallow eval also failed. DIET : NPO, Clinimix per pharmacy ON accu checks Goals of care discussed with the patient, caregiver and (niece over the phone), over 30 minutes DNR Discussed aspect of feeling with the patient in front of the nurse Vanda, and POA (niece), patient agreed for PEG tube placement. Plan discussed with patient and the nurse in which all questions have been answered Case discussed with Dr. Joyce Plan discussed with: Patient, Other (neice) My Orders My Orders Orders - SANTIAGO TAVAREZ Procedure Category Date Status Time * Boiler Tube Reamer CONS 06/04/24 Transmitted Consult 17:45 Hydralazine Injection PHA 06/05/24 In Process (Apresoline Inject 07:00 Sod Chl 0.9%/ Kcl PHA 06/05/24 In Process 40meq 14:45 Renal Function Test LAB 06/06/24 Verified 04:00 Magnesium LAB 06/06/24 Verified 04:00 Clinimix Per Pharmacy MIGUEL ANGEL 06/05/24 In Process 22:00 Date of Service: Jun 05, 2024 Billing Provider: MARY VU MD Common Visit Codes: [id number] INP/OBS CARE(HIGH) SANTIAGO TAVAREZ Jun 05, 2024 16:24 MARY VU MD Jun 11, 2024 23:16
[2024-06-06] VITALS (18 sets, daily range): BP systolic 126–148; BP diastolic 66–94; PULSE 61–87; RESP 12–17; TEMP 97.4–98.7; O2SAT 95–100
[2024-06-06 05:48] LABS: Calcium 9.5 mg/dL (8.7-10.4)
[2024-06-06 05:52] LABS: Anion Gap 9 (5-15); Calcium 9.8 mg/dL (8.7-10.4); Carbon Dioxide 28 mmol/L (20-31); Chloride 104 mmol/L (98-107); Potassium 3.3 mmol/L (3.5-5.1); Sodium 141 mmol/L (136-145)
[2024-06-06 05:54] LABS: Magnesium 1.8 mg/dL (1.6-2.6)
[2024-06-06 05:55] LABS: Phosphorus 3.3 mg/dL (2.4-5.1)
[2024-06-06 05:57] LABS: BUN/Creatinine Ratio 23.4 (10.0-20.0); Blood Urea Nitrogen 11 mg/dL (9-23); Glucose 100 mg/dL (74-106)
[2024-06-06] MEDS: MAGNESIUM SULFATE 1GM/100ML 100 ML IV ONE (08:15)
[2024-06-06] MEDS: SOD CHL IV SCH (09:31)
[2024-06-06] MEDS: KCL 40 MEQ IV SCH (09:31)
--- NOTE | 2024-06-06 09:49 | DVHPNRES ---
Progress Note Date Seen: Jun 06, 2024 Resident Creating Document: SANTIAGO TAVAREZ RESIDENT Medical Necessity Reason Pt with a Central, PICC or Fol: Yes The following are medically ne: Wilks Catheter Subjective Review of Systems VISHAL BATEMAN is a 74-year-old male with a PMH of cerebral palsy by and scoliosis presented to the accompanied by caregiver with the chief complaints of worsening of generalized weakness for past 2 weeks. Caregiver reported patient has been not eating, drinking for past 3 days and also usually patient can get himself up to chair and bedside commode med for past 2 weeks he is unable to transfer himself to wheelchair and found on the floor 2 times likely fall from bed. Caregiver denies fever, nausea, vomiting, flu-like symptoms, and other acute associated symptoms. Patient reported back pain himself. But denies any other complaint. PMH: Cerebral palsy, scoliosis PSH: Denies Family history: Reviewed, noncontributory Social history: Lives alone at home. Denies smoking, alcohol and other drug abuse Allergies: Sulfa allergies Home medications: Baclofen 10 mg 06/01 - Patient seen and examined at the bedside. CT head unremarkable. Failed Swallow eval. 05/31 - patient seen and examined at the bedside. Repeat swallow eval pending. White cell count increased to 14, serum bicarb going down, anion gap increased. Lactic acid within normal limit. Antibiotics broadened. Failed swallow eval twice now. 06/01-Dr. Joyce: HA [facility] wants to proceed with hospice. Patient was prior on hospice at home but was not getting adequate care. We will consult social to help with hospice and discharge planning. We will get MRI since dysphagia is new for the patient. 06/02-patient seen and examined at the bedside. No acute distress. Started Clinimix. 06/03 - . Patient seen and examined at the bedside. Patient refused PEG tube placement. Agrees with parenteral nutrition at this time. 06/04 - patient seen and examined at the bedside, POA came to see the patient, patient agrees for PEG tube placement. GI consulted. 06/05- patient seen and examined at bedside. Potassium and magnesium replenised. GI scheduled PEG tube placement on 06/07 06/06 - patient seen and examined at the bedside. Electrolytes replenish. NPO starting midnight. Objective vital signs Vital Sign Date Time Temp Pulse Resp B/P (MAP) Pulse Ox O2 Delivery O2 Flow Rate FiO2 06/06/24 06:45 67 16 100 06/06/24 06:39 Room Air* 0 21 06/06/24 05:00 97.5 126/78 (94) 97.5 Total Intake and Output 06/05/24 06/05/24 06/06/24 15:00 23:00 07:00 Intake Total 200 ml 742 ml 1061 ml Output Total 1300 ml 1200 ml Balance 200 ml -558 ml -139 ml medications Current Medications Medications Dose Ordered Sig/Elian Route Start Time Stop Time Status Last Admin Dose Admin Docusate Sodium 100 mg BIDPRN PRN PO 05/29/24 21:00 Enoxaparin Sodium 40 mg DAILY SC 05/30/24 10:00 06/05/24 11:04 40 MG Acetaminophen 650 mg Q6HP PRN PO 05/29/24 21:00 Ipratropium [place] 0.5 mg Q4HWA NEB 05/30/24 14:00 06/06/24 06:39 0.5 MG Doxycycline Hyclate 100 ml @ 50 mls/hr Q12H IV 05/31/24 18:00 06/06/24 05:24 50 MLS/HR Albuterol 1.25 mg Q4HR NEB 05/31/24 14:00 06/06/24 06:39 1.25 MG Piperacillin Sod/ Tazobactam Sod 100 ml @ 100 mls/hr Q6H IV 06/01/24 05:00 06/06/24 04:28 100 MLS/HR Amino Acids 0 ml @ 0 mls/hr PER PHARMACY IV 06/02/24 11:30 Diagnostic Test (Pha) 1 strip Q6HR 06/02/24 18:00 06/06/24 05:50 1 STRIP Insulin Human Regular FOLLOW SLIDING SCALE Q6HR SC 06/02/24 18:00 06/06/24 05:54 2 UNITS Dextrose 50 ml UD IV 06/02/24 12:30 Amino Acids/ Electrolytes/ Dextrose 1,000 ml @ 41 mls/hr DAILY@2200 IV 06/02/24 22:00 06/05/24 21:21 41 MLS/HR Hydralazine HCl 10 mg Q6HP PRN IV 06/05/24 07:00 Potassium Chloride/Sodium Chloride 500 ml @ 75 mls/hr Q6H40M IV 06/06/24 07:15 06/06/24 09:31 75 MLS/HR Examination Elderly male patient lying in bed, in no acute distress, General: Cachectic-looking, afebrile, palor, mucosae are moist Cardiovascular: Regular S1 and S2. No murmurs, gallops or rubs. No JVD elevation. No pedal edema Respiratory: Normal B/L air entry on room air. Clear lung sounds on auscultation Abdomen: Soft, nontender, nondistended, normoactive bowel sounds, no rebound tenderness, no organomegaly, no masses. Wilks seen Genitourinary: Deferred MSK/skin: Mobilizes 4 limbs. Skin is dry and warm Neurological: No motor, no sensitive deficits, normal speech. Pupils are isocoric and reactive. Psych/Mental Status: A/Ox2 laboratory and microbiology Laboratory Tests 06/06/24 04:19 06/05/24 03:32 Test 06/06/24 04:19 Range/Units Serum Glucose 100 74-106 mg/dL Microbiology Date/Time Source Procedure Growth Status 05/30/24 22:30 Nose MRSA Screen - Final Complete 05/29/24 17:44 Blood Blood Culture - Final NO GROWTH AFTER 5 DAYS OF INCUBATION. Complete Labs and/or images reviewed: Labs reviewed by me, Image(s) reviewed by me Problem List/Assessment/Plan Problem List/Assessment/Plan Generalized weakness probably secondary to possible acute stroke History of cerebral palsy Likely Stroke CT head unremarkable Continue IV fluid Could not complete MRI as the patient could not lie still Dysphagia - new onset Failure to thrive Started Clinimix per pharmacy 06/02 GI Consulted - PEG tube placement 06/07 Sepsis secondary to Pneumonia, gram positive and Negative IV Ceftriaxone and IV azithro 05/30. Discontinued 05/31 IV antibiotics broadened to IV Zosyn and IV doxy 05/31 MRSA nares pending Neb Ipratropium and albuterol q.4 hours Sputum culture pending Lactic unremarkable Mechanical fall without LOC Head CT unremarkable Microscopic hematuria Chronic Wilks catheter Mild Anemia, likely normocytic UA shows 2+ blood in 158 RBC Hypokalemia Hypomagnesemia Replenishing Lovenox 40 mg sc daily Failed swallow eval once, second swallow eval also failed. DIET : NPO, Clinimix per pharmacy ON accu checks Goals of care discussed with the patient, caregiver and (niece over the phone), over 30 minutes DNR Discussed aspect of feeling with the patient in front of the nurse Vanda, and HA (niece), patient agreed for PEG tube placement. Plan discussed with patient and the nurse in which all questions have been answered Case discussed with Dr. Joyce Plan discussed with: Patient My Orders My Orders Orders - SANTIAGO TAVAREZ Procedure Category Date Status Time Clinimix Per Pharmacy MIGUEL ANGEL 06/05/24 In Process 22:00 Discontinue Tele MIGUEL ANGEL 06/05/24 In Process 17:03 Transfer Orders XFER 06/05/24 Transmitted 17:03 Sod Chl 0.9%/ Kcl PHA 06/06/24 In Process 40meq 07:15 Dietary Evaluation Review Comments: 1. Continue NPO diet per UROLOGIST MD, high-risk for aspiration 2. Currently on PN, awaiting PEG placement; suggest continuation of Clinimix 4.25/10 @ 83 ml/hr in the interim (provides 1020 kcal, meets 100% pro needs, 82% kcal needs) *may add IVLE 250 ml 20% 3x/wk to meet remainder of kcal needs 3. Once PEG tube in place and confirmed ready to use, recommend TF w/ Jevity 1.2; begin at 10 ml/hr and advance by 10 ml Q4 hrs or as tolerated to goal-rate of 50 ml/hr continuously *note: If bolus feeds desired at D/C, pt will require 5 cartons (237 ml/carton) daily 4. Monitor BMP/lytes and replete to WNL/PRN Expected Outcomes/Goals: Improved nutritional status, weight maintenance/gradual gain Date of Service: Jun 06, 2024 Billing Provider: MARY VU MD Common Visit Codes: [id number] INP/OBS CARE(HIGH) SANTIAGO TAVAREZ Jun 06, 2024 09:49 MARY VU MD Jun 11, 2024 23:19
[2024-06-06] MEDS ORDERED: ceFAZolin 1GM/50ML 50 ML IV ONE (10:00)
--- NOTE | 2024-06-06 12:31 | DVHPN2 ---
Progress Note Date Seen: Jun 06, 2024 Resident Creating Document: CATHERINE TINSLEY RESIDENT Medical Necessity Reason Pt with a Central, PICC or Fol: Yes The following are medically ne: Wilks Catheter Subjective Review of Systems The patient is a 74-year-old male with past medical history cerebral palsy, kyphoscoliosis brought to the hospital by caregiver for worsening generalized weakness for past few weeks. The patient also had new onset dysphagia and failure to thrive, aorta with CT head which was unremarkable, MRI was not able to get 10. Underwent at least 3 swallow evaluation which she failed. The patient is nonverbal usually answer in yes or no. Given possible stroke, dysphagia, failure to thrive, not able to pass a swallow test, GI consultation has been done for PEG tube. No any other new complaint PMH: Cerebral palsy, scoliosis No new complains Objective vital signs Vital Sign Date Time Temp Pulse Resp B/P (MAP) Pulse Ox O2 Delivery O2 Flow Rate FiO2 06/06/24 10:57 65 16 99 06/06/24 10:51 Room Air* 0 21 06/06/24 09:00 97.4 138/86 (103) 97.4 Total Intake and Output 06/05/24 06/05/24 06/06/24 15:00 23:00 07:00 Intake Total 200 ml 742 ml 1061 ml Output Total 1300 ml 1200 ml Balance 200 ml -558 ml -139 ml medications Current Medications Medications Dose Ordered Sig/Elian Route Start Time Stop Time Status Last Admin Dose Admin Docusate Sodium 100 mg BIDPRN PRN PO 05/29/24 21:00 Acetaminophen 650 mg Q6HP PRN PO 05/29/24 21:00 Ipratropium [place] 0.5 mg Q4HWA NEB 05/30/24 14:00 06/06/24 10:51 0.5 MG Doxycycline Hyclate 100 ml @ 50 mls/hr Q12H IV 05/31/24 18:00 06/06/24 05:24 50 MLS/HR Albuterol 1.25 mg Q4HR NEB 05/31/24 14:00 06/06/24 10:51 1.25 MG Piperacillin Sod/ Tazobactam Sod 100 ml @ 100 mls/hr Q6H IV 06/01/24 05:00 06/06/24 04:28 100 MLS/HR Amino Acids 0 ml @ 0 mls/hr PER PHARMACY IV 06/02/24 11:30 Diagnostic Test (Pha) 1 strip Q6HR 06/02/24 18:00 06/06/24 05:50 1 STRIP Insulin Human Regular FOLLOW SLIDING SCALE Q6HR SC 06/02/24 18:00 06/06/24 05:54 2 UNITS Dextrose 50 ml UD IV 06/02/24 12:30 Amino Acids/ Electrolytes/ Dextrose 1,000 ml @ 41 mls/hr DAILY@2200 IV 06/02/24 22:00 06/05/24 21:21 41 MLS/HR Hydralazine HCl 10 mg Q6HP PRN IV 06/05/24 07:00 Potassium Chloride/Sodium Chloride 500 ml @ 75 mls/hr Q6H40M IV 06/06/24 07:15 06/06/24 09:31 75 MLS/HR Examination General Appearance: Cachectic, BMI 14.5, not in acute distress, answers in yes or no. Not able to answer in full sentence. Head Exam: Normal inspection Neck Exam: Normal inspection. Non-tender. Normal alignment Pulmonary/Respiratory: Chest non-tender. Clear bilateral breath sounds Cardiovascular/Chest: Regular rate and rhythm. No murmurs. No JVD. Peripheral Pulses: 2+ Radial (R). 2+ Radial (L). 2+ Pedal (R). 2+ Pedal (L) Musculoskeletal : Kyphoscoliosis Abdominal Exam: Normal bowel sounds. Soft. Nontender. No hepatospenomegaly. No masses Ankle Exam: Negative ankle edema Lower extremities: Negative lower extremity edema Neuro/Mental Status: Alert, not oriented to time place and person. laboratory and microbiology Laboratory Tests 06/06/24 04:19 06/05/24 03:32 Test 06/06/24 04:19 Range/Units Serum Glucose 100 74-106 mg/dL Microbiology Date/Time Source Procedure Growth Status 05/30/24 22:30 Nose MRSA Screen - Final Complete 05/29/24 17:44 Blood Blood Culture - Final NO GROWTH AFTER 5 DAYS OF INCUBATION. Complete Problem List/Assessment/Plan Problem List/Assessment/Plan Failure to thrive Dysphagia Fails swallow evaluation Possible stroke Cerebral palsy BMI 14.5 kg/M2 Plan/recommendation Dr Chang Plan for peg tube on monday -Patient has severe dysphagia likely due to stroke, given prolonged inability to meet nutritional need via orally, low BMI with malnutrition or weight loss likely meets criteria for PEG tube. -family agreed with PEG tube insertion -we will evaluate for coagulopathy and correct if needed -Continue to monitor labs including hemoglobin and hematocrit, maintain hemoglobin greater than eight -IV hydration -IV antibiotic as per primary team. -we will continue to follow with this patient. Plan discussed with: Other (RN) Dietary Evaluation Review Comments: 1. Continue NPO diet per LUMP MACHINE OPERATOR, high-risk for aspiration 2. Currently on PN, awaiting PEG placement; suggest continuation of Clinimix 4.25/10 @ 83 ml/hr in the interim (provides 1020 kcal, meets 100% pro needs, 82% kcal needs) *may add IVLE 250 ml 20% 3x/wk to meet remainder of kcal needs 3. Once PEG tube in place and confirmed ready to use, recommend TF w/ Jevity 1.2; begin at 10 ml/hr and advance by 10 ml Q4 hrs or as tolerated to goal-rate of 50 ml/hr continuously *note: If bolus feeds desired at D/C, pt will require 5 cartons (237 ml/carton) daily 4. Monitor BMP/lytes and replete to WNL/PRN Expected Outcomes/Goals: Improved nutritional status, weight maintenance/gradual gain CATHERINE TINSLEY RESIDENT Jun 06, 2024 12:31
[2024-06-06] MEDS: POTASSIUM CHLORIDE 40 MEQ, LIDOCAINE 1% (LOCAL ANESTH.) 4 ML in SODIUM CHL 0.9% 250 ML IV ONE (15:15)
[2024-06-06] MEDS: ALBUTEROL SULF 2.5 MG/0.5ML(0.5%) NEB SOLN NEB SCH (20:04)
[2024-06-06] MEDS: IPRATROPIUM BROM 0.5 MG/2.5ML INH SOL NEB SCH (20:04)
[2024-06-06] MEDS: DOXYCYCLINE 100MG/100ML 100 ML IV SCH (21:35)
[2024-06-07] VITALS (15 sets, daily range): BP systolic 99–155; BP diastolic 64–75; PULSE 71–88; RESP 16–20; TEMP 97.1–98.5; O2SAT 94–100
[2024-06-07 07:39] LABS: Basophils # (auto) 0.1 10 ^3/uL (0-0.2); Basophils % (auto) 0.6 % (0.0-2.0); Eosinophils # (auto) 0.4 10 ^3/uL (0-0.8); Eosinophils % (auto) 4.2 % (0.0-7.0); Hematocrit 37.2 % (41.0-53.0); Hemoglobin 12.6 g/dL (13.5-17.5); Lymphocytes # (auto) 1.2 10 ^3/uL (0.4-5.4); Lymphocytes % (auto) 11.5 % (10.0-50.0); Mean Corpuscular Hemoglobin 32.1 pg (28.0-32.0); Mean Corpuscular Hgb Conc. 33.9 g/dL (32.0-36.0); Mean Corpuscular Volume 94.8 fL (80.0-100.0); Monocytes # (auto) 0.7 10 ^3/uL (0-1.3); Monocytes % (auto) 6.5 % (0.0-12.0); Neutrophils % (auto) 77.2 % (37.0-80.0); Nucleated Red Blood Cells % 0.1 %; Platelet Count (auto) 258 10^3/uL (140-450); Red Blood Cells 3.93 10^6/uL (4.5-5.90); Red Cell Distribution Width 13.2 % (11.8-14.3); White Blood Cell 10.3 10^3/uL (4.4-10.8)
[2024-06-07 07:48] LABS: Calcium 9.2 mg/dL (8.7-10.4)
[2024-06-07 07:53] LABS: BUN/Creatinine Ratio 25.5 (10.0-20.0)
[2024-06-07 07:54] LABS: Magnesium 1.9 mg/dL (1.6-2.6)
[2024-06-07 07:55] LABS: Albumin 3.9 g/dL (3.2-4.8); Phosphorus 3.2 mg/dL (2.4-5.1)
[2024-06-07 07:57] LABS: Potassium 3.2 mmol/L (3.5-5.1)
[2024-06-07 07:58] LABS: INR 1.15 (0.9-1.15); Partial Thromboplastin Time 21.4 SEC (24.5-34.5)
[2024-06-07] MEDS: ceFAZolin 1GM/50ML 50 ML IV ONE (09:15)
[2024-06-07] MEDS: POTASSIUM CHL 20MEQ/100ML 100 ML IV SCH (10:49)
[2024-06-07] MEDS ORDERED: MIDAZOLAM HCL 2MG/2ML 2ml VIAL (1mg/ml) ONE (16:12)
[2024-06-07] MEDS ORDERED: PROPOFOL 10 MG/ML 20 ML IV ONE (16:12)
[2024-06-07] MEDS ORDERED: LIDOCAINE 1% INJ PF 5ML AMP ONE (16:12)
[2024-06-07] MEDS ORDERED: MEPERIDINE HCL (25 MG/ML) 1ML VIAL ONE (16:12)
[2024-06-07] MEDS ORDERED: SODIUM CHLORIDE LOCK 10 ML ONE (16:12)
[2024-06-07] MEDS ORDERED: fentaNYL CITRATE 100 MCG/2 ML VL ONE (16:12)
--- NOTE | 2024-06-07 16:35 | DVHINCON2 ---
Date of service: Jun 07, 2024 Family History: Cerebrovascular accident (CVA) G8 MOTHER G8 FATHER G8 SISTER Allergies: Coded Allergies: Sulfa Antibiotics (Verified Allergy, Unknown, 05/29/24) Home Meds Unable to Obtain Active Prescriptions or Reported Meds Current Medications Current Medications Medications (Trade) Dose Ordered Sig/Elian Route PRN Reason Start Time Stop Time Status Last Admin Albuterol (Ventolin Medneb) 2.5 mg Q6HWA NEB 06/06/24 18:00 06/07/24 11:40 DC 06/07/24 11:30 Ipratropium [place] (Atrovent Medneb) 0.5 mg Q6HWA NEB 06/06/24 18:00 06/07/24 11:40 DC 06/07/24 11:31 Doxycycline Hyclate 100 ml @ 50 mls/hr Q12H IV 06/06/24 22:00 06/06/24 21:35 Potassium Chloride 100 ml @ 50 mls/hr Q2H IV 06/07/24 08:45 06/07/24 12:44 DC 06/07/24 10:49 Albuterol (Ventolin Medneb) 2.5 mg Q6HWA PRN NEB pna 06/07/24 11:45 Ipratropium [place] (Atrovent Medneb) 0.5 mg Q6HWA PRN NEB pna 06/07/24 11:45 Vital Signs Vital Signs Date Time Temp Pulse Resp B/P (MAP) Pulse Ox O2 Delivery O2 Flow Rate FiO2 06/07/24 12:52 98.4 88 20 150/67 (94) 98 98.4 06/07/24 11:31 Room Air* 0 21 Labs/Diagnostic Data Labs Test 06/07/24 11:24 06/07/24 07:31 06/06/24 04:19 06/05/24 03:32 Range/Units POC Glucose 120 H 70-106 mg/dl White Blood Count 10.3 # 4.4-10.8 10^3/uL Red Blood Count 3.93 L 4.5-5.90 10^6/uL Hemoglobin 12.6 L 13.5-17.5 g/dL Hematocrit 37.2 L 41.0-53.0 % Mean Corpuscular Volume 94.8 80.0-100.0 fL Mean Corpuscular Hemoglobin 32.1 H 28.0-32.0 pg Mean Corpuscular Hemoglobin Concent 33.9 32.0-36.0 g/dL Red Cell Distribution Width 13.2 11.8-14.3 % Platelet Count 258 140-450 10^3/uL Mean Platelet Volume 8.7 6.9-10.8 fL Neutrophils (%) (Auto) 77.2 37.0-80.0 % Lymphocytes (%) (Auto) 11.5 10.0-50.0 % Monocytes (%) (Auto) 6.5 0.0-12.0 % Eosinophils (%) (Auto) 4.2 0.0-7.0 % Basophils (%) (Auto) 0.6 0.0-2.0 % Neutrophils # (Auto) 8.0 1.6-8.6 10 ^3/uL Lymphocytes # (Auto) 1.2 0.4-5.4 10 ^3/uL Monocytes # (Auto) 0.7 0-1.3 10 ^3/uL Eosinophils # (Auto) 0.4 0-0.8 10 ^3/uL Basophils # (Auto) 0.1 0-0.2 10 ^3/uL Nucleated Red Blood Cells 0.1 % Prothrombin Time 12.0 H 9.3-11.8 sec Prothrombin Time INR 1.15 0.9-1.15 Activated Partial Thromboplast Time 21.4 L 24.5-34.5 SEC Sodium Level 138 136-145 mmol/L Potassium Level 3.2 L 3.5-5.1 mmol/L Chloride Level 104 98-107 mmol/L Carbon Dioxide Level 25 20-31 mmol/L Anion Gap 9 5-15 Blood Urea Nitrogen 12 9-23 mg/dL Creatinine 0.47 L 0.700-1.30 mg/dL Estimated GFR () 224 mL/min Estimated GFR (Non- 185 mL/min BUN/Creatinine Ratio 25.5 H 10.0-20.0 Serum Glucose 122 H 74-106 mg/dL Calcium Level 9.2 8.7-10.4 mg/dL Phosphorus Level 3.2 2.4-5.1 mg/dL Magnesium Level 1.9 1.6-2.6 mg/dL Albumin 3.9 3.2-4.8 g/dL Glomerular Filtration Rate Calc 108 >90 mL/min Total Bilirubin 0.7 0.2-1.0 mg/dL Aspartate Amino Transferase (AST) 26 13-40 U/L Alanine Aminotransferase (ALT) 28 7-40 U/L Alkaline Phosphatase 56 46-116 U/L Total Protein 6.4 5.7-8.2 g/dL Test 06/03/24 06:29 05/31/24 10:40 05/30/24 22:30 05/30/24 18:35 Range/Units Triglycerides Level 103 < 150 mg/dL Lactic Acid Level 1.3 0.4-2.0 mmol/L Influenza Type A Antigen Negative Negative Influenza Type B Antigen Negative Negative SARS-CoV-2 Antigen (Rapid) Negative NEGATIVE Test 05/30/24 11:55 05/30/24 06:45 05/29/24 23:57 05/29/24 18:38 Range/Units Erythrocyte Sedimentation Rate 12 0-20 mm/hr C-Reactive Protein High Sensitivity 0.12 <1.0 mg/dL Hemoglobin A1c 5.4 <5.7 % A1C Direct Bilirubin < 0.1 <0.3 mg/dL B-Type Natriuretic Peptide 26.17 0-100 pg/mL Cholesterol Level 174 < 200 mg/dL LDL Cholesterol 120 H < 100 mg/dL HDL Cholesterol 41 40-59 mg/dL Thyroid Stimulating Hormone (TSH) 3.77 0.55-4.78 uIU/mL Urine Color Yellow Yellow Urine Clarity Clear Clear Urine pH 6.0 5.0-9.0 Urine Specific [place] 1.029 1.001-1.035 Urine Protein Trace H Negative Urine Ketones Trace Negative Urine Blood 2+ H Negative /uL Urine Nitrite Negative Negative Urine Bilirubin Negative Negative Urine Urobilinogen Normal Negative mg/dL Urine Leukocyte Esterase Negative Negative /uL Urine RBC 158 0 - 3 /hpf Urine Microscopic WBC 2 0-3 /HPF Urine Squamous Epithelial Cells Few <5 /hpf Urine Bacteria None seen None Seen /hpf Urine Mucus Few None Seen Urine Glucose Normal Normal mg/dL Urine Opiates Screen Neg NEGATIVE Urine Fentanyl Screen Neg NEGATIVE Urine Barbiturates Screen Neg NEGATIVE Urine Phencyclidine Screen Neg NEGATIVE Urine Amphetamines Screen Neg NEGATIVE Urine Benzodiazepines Screen Neg NEGATIVE Urine Cocaine Screen Neg NEGATIVE Urine Cannabinoids Screen Neg NEGATIVE Microbiology Date/Time Source Procedure Growth Status 05/30/24 22:30 Nose MRSA Screen - Final Complete 05/29/24 17:44 Blood Blood Culture - Final NO GROWTH AFTER 5 DAYS OF INCUBATION. Complete Assessment [id number] DEHYDRATION/MALNUTRITION PEG TUBE PLACEMENT EGD BY DR Faith VICENTE EBL LESS THAN 1 CC NO DRAINS NO COMPLICATIONS Plan discussed with: Other WILFRID VICENTE MD Jun 07, 2024 16:35
--- NOTE | 2024-06-07 17:18 | DVHPNRES ---
Progress Note Date Seen: Jun 07, 2024 Resident Creating Document: SANTIAGO TAVAREZ RESIDENT Medical Necessity Reason Pt with a Central, PICC or Fol: Yes The following are medically ne: Wilks Catheter Subjective Review of Systems VISHAL BATEMAN is a 74-year-old male with a PMH of cerebral palsy by and scoliosis presented to the accompanied by caregiver with the chief complaints of worsening of generalized weakness for past 2 weeks. Caregiver reported patient has been not eating, drinking for past 3 days and also usually patient can get himself up to chair and bedside commode med for past 2 weeks he is unable to transfer himself to wheelchair and found on the floor 2 times likely fall from bed. Caregiver denies fever, nausea, vomiting, flu-like symptoms, and other acute associated symptoms. Patient reported back pain himself. But denies any other complaint. PMH: Cerebral palsy, scoliosis PSH: Denies Family history: Reviewed, noncontributory Social history: Lives alone at home. Denies smoking, alcohol and other drug abuse Allergies: Sulfa allergies Home medications: Baclofen 10 mg 06/01 - Patient seen and examined at the bedside. CT head unremarkable. Failed Swallow eval. 05/31 - patient seen and examined at the bedside. Repeat swallow eval pending. White cell count increased to 14, serum bicarb going down, anion gap increased. Lactic acid within normal limit. Antibiotics broadened. Failed swallow eval twice now. 06/01-Dr. Joyce: HA Simentalyl wants to proceed with hospice. Patient was prior on hospice at home but was not getting adequate care. We will consult social to help with hospice and discharge planning. We will get MRI since dysphagia is new for the patient. 06/02-patient seen and examined at the bedside. No acute distress. Started Clinimix. 06/03 - . Patient seen and examined at the bedside. Patient refused PEG tube placement. Agrees with parenteral nutrition at this time. 06/04 - patient seen and examined at the bedside, POA came to see the patient, patient agrees for PEG tube placement. GI consulted. 06/05- patient seen and examined at bedside. Potassium and magnesium replenised. GI scheduled PEG tube placement on 06/07 06/06 - patient seen and examined at the bedside. Electrolytes replenish. NPO starting midnight. 06/07 - patient seen and examined at the bedside. POA Lelia at bedside. PEG tube placement today. Residual to be checked in a.m.. Objective vital signs Vital Sign Date Time Temp Pulse Resp B/P (MAP) Pulse Ox O2 Delivery O2 Flow Rate FiO2 06/07/24 12:52 98.4 88 20 150/67 (94) 98 98.4 06/07/24 11:31 Room Air* 0 21 Total Intake and Output 06/06/24 06/06/24 06/07/24 15:00 23:00 07:00 Intake Total 200 ml 578 ml 466 ml Output Total 800 ml 600 ml Balance 200 ml -222 ml -134 ml medications Current Medications Medications Dose Ordered Sig/Elian Route Start Time Stop Time Status Last Admin Dose Admin Docusate Sodium 100 mg BIDPRN PRN PO 05/29/24 21:00 Acetaminophen 650 mg Q6HP PRN PO 05/29/24 21:00 Piperacillin Sod/ Tazobactam Sod 100 ml @ 100 mls/hr Q6H IV 06/01/24 05:00 06/06/24 23:30 100 MLS/HR Amino Acids 0 ml @ 0 mls/hr PER PHARMACY IV 06/02/24 11:30 Diagnostic Test (Pha) 1 strip Q6HR 06/02/24 18:00 06/07/24 12:00 1 STRIP Insulin Human Regular FOLLOW SLIDING SCALE Q6HR SC 06/02/24 18:00 06/06/24 05:54 2 UNITS Dextrose 50 ml UD IV 06/02/24 12:30 Amino Acids/ Electrolytes/ Dextrose 1,000 ml @ 41 mls/hr DAILY@2200 IV 06/02/24 22:00 06/06/24 21:36 41 MLS/HR Hydralazine HCl 10 mg Q6HP PRN IV 06/05/24 07:00 Doxycycline Hyclate 100 ml @ 50 mls/hr Q12H IV 06/06/24 22:00 06/06/24 21:35 50 MLS/HR Albuterol 2.5 mg Q6HWA PRN NEB 06/07/24 11:45 Ipratropium [place] 0.5 mg Q6HWA PRN NEB 06/07/24 11:45 Enteral Nutritional Formula 240 ml Q6HR PO 06/08/24 06:00 Examination Elderly male patient lying in bed, in no acute distress, General: Cachectic-looking, afebrile, palor, mucosae are moist Cardiovascular: Regular S1 and S2. No murmurs, gallops or rubs. No JVD elevation. No pedal edema Respiratory: Normal B/L air entry on room air. Clear lung sounds on auscultation Abdomen: Soft, nontender, nondistended, normoactive bowel sounds, no rebound tenderness, no organomegaly, no masses. Wilks seen Genitourinary: Deferred MSK/skin: Mobilizes 4 limbs. Skin is dry and warm Neurological: No motor, no sensitive deficits, normal speech. Pupils are isocoric and reactive. Psych/Mental Status: A/Ox2 laboratory and microbiology Laboratory Tests 06/07/24 07:31 Test 06/07/24 07:31 Range/Units Serum Glucose 122 H 74-106 mg/dL Microbiology Date/Time Source Procedure Growth Status 05/30/24 22:30 Nose MRSA Screen - Final Complete 05/29/24 17:44 Blood Blood Culture - Final NO GROWTH AFTER 5 DAYS OF INCUBATION. Complete Labs and/or images reviewed: Labs reviewed by me, Image(s) reviewed by me Problem List/Assessment/Plan Problem List/Assessment/Plan Generalized weakness probably secondary to possible acute stroke History of cerebral palsy Likely Stroke CT head unremarkable Continue IV fluid Could not complete MRI as the patient could not lie still Dysphagia - new onset status with PEG tube placement Failure to thrive Started Clinimix per pharmacy 06/02 GI Consulted - PEG tube placement completed 06/07, residual to be checked 06/08 6:00 a.m.. Clear ensure 240 mL q.6 hour starting tomorrow 6 am Sepsis secondary to Pneumonia, gram positive and Negative IV Ceftriaxone and IV azithro 05/30. Discontinued 05/31 IV antibiotics broadened to IV Zosyn and IV doxy 05/31 MRSA nares pending Neb Ipratropium and albuterol q.4 hours Sputum culture pending Lactic unremarkable Mechanical fall without LOC Head CT unremarkable Microscopic hematuria Chronic Wilks catheter Mild Anemia, likely normocytic UA shows 2+ blood in 158 RBC Hypokalemia Hypomagnesemia Replenishing Lovenox 40 mg sc daily Failed swallow eval once, second swallow eval also failed. DIET : NPO, Clinimix per pharmacy ON accu checks Patient's POA, opted for hospice. Goals of care discussed with the patient, caregiver and (niece over the phone), over 30 minutes DNR Plan discussed with patient and the nurse in which all questions have been answered Case discussed with Dr. Joyce Plan discussed with: Patient, Other (POA) My Orders My Orders Orders - SANTIAGO TAVAREZ Procedure Category Date Status Time Doxycycline PHA 06/06/24 In Process 100mg/100ml 22:00 Transfer Orders XFER 06/07/24 Transmitted 09:25 Albuterol Medneb PHA 06/07/24 In Process (Ventolin Medneb) 11:45 Ipratropium Medneb PHA 06/07/24 In Process (Atrovent Medneb) 11:45 Comprehensive LAB 06/08/24 Verified Metabolic Panel 04:00 Magnesium LAB 06/08/24 Verified 04:00 Phosphorus LAB 06/08/24 Verified 04:00 Clinimix Per Pharmacy MIGUEL ANGEL 06/07/24 In Process 22:00 Dietary Evaluation Review Comments: 1. Continue NPO diet per [employer]ACT[employer] RN, high-risk for aspiration 2. Currently on PN, awaiting PEG placement; suggest continuation of Clinimix 4.25/10 @ 83 ml/hr in the interim (provides 1020 kcal, meets 100% pro needs, 82% kcal needs) *may add IVLE 250 ml 20% 3x/wk to meet remainder of kcal needs 3. Once PEG tube in place and confirmed ready to use, recommend TF w/ Jevity 1.2; begin at 10 ml/hr and advance by 10 ml Q4 hrs or as tolerated to goal-rate of 50 ml/hr continuously *note: If bolus feeds desired at D/C, pt will require 5 cartons (237 ml/carton) daily 4. Monitor BMP/lytes and replete to WNL/PRN Expected Outcomes/Goals: Improved nutritional status, weight maintenance/gradual gain Date of Service: Jun 07, 2024 Billing Provider: MARY VU MD Common Visit Codes: [id number] INP/OBS CARE(HIGH) SANTIAGO TAVAREZ Jun 07, 2024 17:18 MARY VU MD Jun 11, 2024 23:33
--- NOTE | 2024-06-07 17:20 | DVHOP ---
DATE OF SURGERY: 06/07/2024 PREOPERATIVE DIAGNOSIS: Dehydration, malnutrition. POSTOPERATIVE DIAGNOSIS: Dehydration, malnutrition. PROCEDURE: Placement of PEG in conjunction with Dr. Derek Chang's endoscopy. She will dictate her part. DESCRIPTION OF PROCEDURE: The patient was prepped and draped in the usual sterile fashion in the supine position with the upper abdomen exposed. Endoscopy was done. The light was seen shining through and a suitable spot was selected in the upper abdomen. Lidocaine was infiltrated in the vicinity and a small incision was applied, the angiocatheter needle was advanced into position into the anterior wall of the stomach, visualized by the endoscope and the guidewire was advanced after the needle was withdrawn. The guidewire was grasped by the endoscope and pulled out from the mouth. The G-tube was engaged with the guidewire, pulled back into the mouth and into the stomach, pulled out from the anterior wall of the abdomen. The cuff was well situated within the anterior wall of the stomach confirmed by endoscopy. Final connections were established. There were no complications and the PEG tube placement was accomplished successfully. MD LIA Corral/LATISHA TID: [id number] RECEIPT: [id number] cc: Radha Thompson
--- NOTE | 2024-06-07 19:00 | DVHOP2 ---
Operative Report DATE OF OPERATION: 06/07/24 PROCEDURE: Upper Endoscopy with PEG tube placement. PREOPERATIVE INDICATION: The patient is a 74 -year-old male undergoing endoscopy for failure to thrive dementia and poor oral intake POSTOPERATIVE DIAGNOSES: 1. Upper endoscopy showed mild gastritis with pre-pyloric antral gastric erosions from which biopsies were obtained 2. A percutaneous gastrostomy tube was placed through the anterior abdominal wall under sterile conditions using endoscopic guidance and assistance 3. Repeat endoscopy confirmed adequate placement PROCEDURE PERFORMED BY: Franklyn Chang GI NURSE: Leonard SCOPE: Olympus videoendoscope. ASA CLASS: 3. PREOPERATIVE MEDICATIONS: MAC sedation, Dr. Dubose; IV Ancef 1 g PROCEDURE IN DETAIL: After obtaining an informed consent, the patient was placed on left lateral decubitus position. The patient was then sedated with the above medications. A bite block was placed between his teeth. The endoscope was then passed through the oropharynx, into the esophagus, and through the stomach and pylorus up to the second and third part of the duodenum. The endoscope was then withdrawn. The 2nd and 3rd part of the duodenal and duodenal bulb were normal. The pre- pyloric area and antrum showed mild gastritis with superficial erosions. Gastric biopsies were obtained On retroflexion the fundus cardia and angularis were normal. The distal esophagus and oropharynx were also unremarkable except for tertiary contractions Using the light from the endoscope a percutaneous gastrostomy tube was placed through the anterior abdominal wall under sterile conditions by Dr. Jordan Chang using endoscopic guidance and assistance as per standard protocol. I performed a repeat endoscopy to confirm adequate placement The patient tolerated the procedure well without difficulty. COMPLICATIONS : None SPECIMENS: Gastric biopsies DISPOSITION: Transfer back to the floor Stable PLAN: 1. Await for biopsy result 2. Will place pt on Protonix 40 mg IV daily 3. Remove G-tube dressing on 06/08/2024 and follow up post PEG placement instructions 4. Start G-tube feedings on 06/08/2024 with gastric residuals are less than 100 mL FRANKLYN CHANG MD Jun 07, 2024 19:00
[2024-06-07] MEDS: MORPHINE SULFATE INJ 2 MG/ml SYRG IV ONE (22:08)
--- NOTE | 2024-06-07 22:58 | DVHINCON2 ---
DATE OF CONSULTATION: 06/07/2024 ATTENDING PHYSICIAN: Dr. Irma Chang HISTORY OF PRESENT ILLNESS: This patient is 74 years old, unable to give adequate history. Most of the information obtained from the chart. He has a history of cerebral palsy by and scoliosis, presented to the hospital ____ with chief complaints of worsening generalized weakness and is not able to eat. PEG tube was considered and I was asked to see him with regards to assistance regarding PEG tube placement by endoscopy by Dr. Derek Chang. PAST MEDICAL HISTORY: Cerebral palsy, scoliosis. PAST SURGICAL HISTORY: Not available. PHYSICAL EXAMINATION: VITAL SIGNS: Currently, he is afebrile. HEENT: Stable signs with no evidence of pallor, cyanosis, or jaundice. NECK: Supple, nontender with no thyromegaly, lymphadenopathy. CHEST AND LUNGS: Clear. ABDOMEN: Soft. NEUROLOGIC: Not assessed. EXTREMITIES: He is contracted in various locations. CLINICAL IMPRESSION: Dehydration, malnutrition. PLAN: Will be to place a PEG tube in conjunction with Dr. Derek Chang's endoscopy, she would be dictating her part. MD LIA Corral/RACHELE/MEHDI TID: [id number] RECEIPT: [id number] cc: Radha Thompson MD
[2024-06-08] VITALS (13 sets, daily range): BP systolic 127–146; BP diastolic 55–71; PULSE 79–98; RESP 17–22; TEMP 97.3–99.1; O2SAT 97–100
[2024-06-08] MEDS: ENSURE CLEAR Apple 8oz Carton GT SCH (05:34)
[2024-06-08] MEDS ORDERED: ENSURE CLEAR Apple 8oz Carton PO SCH (06:00)
[2024-06-08] MEDS: ALBUTEROL SULF 2.5 MG/0.5ML(0.5%) NEB SOLN NEB PRN (09:29)
[2024-06-08] MEDS: IPRATROPIUM BROM 0.5 MG/2.5ML INH SOL NEB PRN (09:29)
[2024-06-08 11:18] LABS: Basophils # (auto) 0.1 10 ^3/uL (0-0.2); Eosinophils # (auto) 0.3 10 ^3/uL (0-0.8); Eosinophils % (auto) 2.7 % (0.0-7.0); Hematocrit 38.5 % (41.0-53.0); Hemoglobin 12.9 g/dL (13.5-17.5); Lymphocytes # (auto) 1.8 10 ^3/uL (0.4-5.4); Mean Corpuscular Hemoglobin 31.5 pg (28.0-32.0); Mean Corpuscular Hgb Conc. 33.5 g/dL (32.0-36.0); Mean Corpuscular Volume 93.9 fL (80.0-100.0); Monocytes # (auto) 1.4 10 ^3/uL (0-1.3); Neutrophils # (auto) 6.4 10 ^3/uL (1.6-8.6); Neutrophils % (auto) 64.3 % (37.0-80.0); Nucleated Red Blood Cells % 0.1 %; Platelet Count (auto) 190 10^3/uL (140-450); Red Cell Distribution Width 12.6 % (11.8-14.3)
--- NOTE | 2024-06-08 11:19 | DVHPNRES ---
Progress Note Date Seen: Jun 08, 2024 Resident Creating Document: SANTIAGO TAVAREZ RESIDENT Medical Necessity Reason Pt with a Central, PICC or Fol: Yes The following are medically ne: Wilks Catheter Subjective Review of Systems VISHAL BATEMAN is a 74-year-old male with a PMH of cerebral palsy by and scoliosis presented to the accompanied by caregiver with the chief complaints of worsening of generalized weakness for past 2 weeks. Caregiver reported patient has been not eating, drinking for past 3 days and also usually patient can get himself up to chair and bedside commode med for past 2 weeks he is unable to transfer himself to wheelchair and found on the floor 2 times likely fall from bed. Caregiver denies fever, nausea, vomiting, flu-like symptoms, and other acute associated symptoms. Patient reported back pain himself. But denies any other complaint. PMH: Cerebral palsy, scoliosis PSH: Denies Family history: Reviewed, noncontributory Social history: Lives alone at home. Denies smoking, alcohol and other drug abuse Allergies: Sulfa allergies Home medications: Baclofen 10 mg 06/01 - Patient seen and examined at the bedside. CT head unremarkable. Failed Swallow eval. 05/31 - patient seen and examined at the bedside. Repeat swallow eval pending. White cell count increased to 14, serum bicarb going down, anion gap increased. Lactic acid within normal limit. Antibiotics broadened. Failed swallow eval twice now. 06/01-Dr. Joyce: HA Simentalyl wants to proceed with hospice. Patient was prior on hospice at home but was not getting adequate care. We will consult social to help with hospice and discharge planning. We will get MRI since dysphagia is new for the patient. 06/02-patient seen and examined at the bedside. No acute distress. Started Clinimix. 06/03 - . Patient seen and examined at the bedside. Patient refused PEG tube placement. Agrees with parenteral nutrition at this time. 06/04 - patient seen and examined at the bedside, POA came to see the patient, patient agrees for PEG tube placement. GI consulted. 06/05- patient seen and examined at bedside. Potassium and magnesium replenised. GI scheduled PEG tube placement on 06/07 06/06 - patient seen and examined at the bedside. Electrolytes replenish. NPO starting midnight. 06/07 - patient seen and examined at the bedside. POA Lelia at bedside. PEG tube placement today. Residual to be checked in a.m.. 06/08 - status post PEG tube placement. Peg tube site is dressed/clean/intact. Feedings to be started later today. Discontinued IV Zosyn. Objective vital signs Vital Sign Date Time Temp Pulse Resp B/P (MAP) Pulse Ox O2 Delivery O2 Flow Rate FiO2 06/08/24 09:35 80 20 100 06/08/24 09:29 Nasal Cannula 2.0 06/08/24 09:29 28 06/08/24 09:00 97.3 130/55 (80) 97.3 Total Intake and Output 06/07/24 06/07/24 06/08/24 15:00 23:00 07:00 Intake Total 150 ml 75 ml 796 ml Output Total 600 ml 1450 ml Balance 150 ml -525 ml -654 ml medications Current Medications Medications Dose Ordered Sig/Elian Route Start Time Stop Time Status Last Admin Dose Admin Docusate Sodium 100 mg BIDPRN PRN PO 05/29/24 21:00 Acetaminophen 650 mg Q6HP PRN PO 05/29/24 21:00 Piperacillin Sod/ Tazobactam Sod 100 ml @ 100 mls/hr Q6H IV 06/01/24 05:00 06/08/24 05:32 100 MLS/HR Amino Acids 0 ml @ 0 mls/hr PER PHARMACY IV 06/02/24 11:30 Diagnostic Test (Pha) 1 strip Q6HR 06/02/24 18:00 06/08/24 05:42 1 STRIP Insulin Human Regular FOLLOW SLIDING SCALE Q6HR SC 06/02/24 18:00 06/06/24 05:54 2 UNITS Dextrose 50 ml UD IV 06/02/24 12:30 Amino Acids/ Electrolytes/ Dextrose 1,000 ml @ 41 mls/hr DAILY@2200 IV 06/02/24 22:00 06/07/24 22:05 41 MLS/HR Hydralazine HCl 10 mg Q6HP PRN IV 06/05/24 07:00 Doxycycline Hyclate 100 ml @ 50 mls/hr Q12H IV 06/06/24 22:00 06/08/24 09:37 50 MLS/HR Albuterol 2.5 mg Q6HWA PRN NEB 06/07/24 11:45 2/22/25 09:29 2.5 MG Ipratropium [place] 0.5 mg Q6HWA PRN NEB 06/07/24 11:45 06/08/24 09:29 0.5 MG Enteral Nutritional Formula 240 ml Q6HR GT 06/08/24 06:00 Examination Elderly male patient lying in bed, in no acute distress, General: Cachectic-looking, afebrile, palor, mucosae are moist Cardiovascular: Regular S1 and S2. No murmurs, gallops or rubs. No JVD elevation. No pedal edema Respiratory: Normal B/L air entry on room air. Clear lung sounds on auscultation Abdomen: Soft, nontender, nondistended, normoactive bowel sounds, no rebound tenderness, no organomegaly, no masses. Wilks seen. Peg tube seen, dressing dry clean and intact Genitourinary: Deferred MSK/skin: Mobilizes 4 limbs. Skin is dry and warm Neurological: No motor, no sensitive deficits, normal speech. Pupils are isocoric and reactive. Psych/Mental Status: A/Ox2 laboratory and microbiology Test 06/08/24 10:49 Range/Units Serum Glucose Pending Microbiology Date/Time Source Procedure Growth Status 05/30/24 22:30 Nose MRSA Screen - Final Complete 05/29/24 17:44 Blood Blood Culture - Final NO GROWTH AFTER 5 DAYS OF INCUBATION. Complete Labs and/or images reviewed: Labs reviewed by me, Image(s) reviewed by me Problem List/Assessment/Plan Problem List/Assessment/Plan Generalized weakness probably secondary to possible acute stroke History of cerebral palsy Likely Stroke CT head unremarkable Continue IV fluid Could not complete MRI as the patient could not lie still Dysphagia - new onset status with PEG tube placement Failure to thrive Started Clinimix per pharmacy 06/02 GI Consulted - PEG tube placement completed 06/07 Clear ensure 240 mL q.6 hour starting 06/08 Sepsis secondary to Pneumonia, gram positive and Negative IV Ceftriaxone and IV azithro 05/30. Discontinued 05/31 Patient completed IV antibiotics course IV Zosyn 05/31 till 06/08 Continue IV doxy starting 05/31 MRSA nares pending Lactic unremarkable Mechanical fall without LOC Head CT unremarkable Microscopic hematuria Chronic Wilks catheter Mild Anemia, likely normocytic UA shows 2+ blood in 158 RBC Hypokalemia Hypomagnesemia Replenishing Lovenox 40 mg sc daily Failed swallow eval thrice, status post G-tube placement. DIET : NPO, G-tube feeding clear ensure ON accu checks Patient's POA, DC planning initiated with [facility]. Goals of care discussed with the patient, caregiver and (niece over the phone), over 30 minutes DNR Plan discussed with patient and the nurse in which all questions have been answered Case discussed with Dr. Sue Plan discussed with: Patient, Other (POA michael) My Orders My Orders Orders - SANTIAGO TAVAREZ Procedure Category Date Status Time Albuterol Medneb PHA 06/07/24 In Process (Ventolin Medneb) 11:45 Ipratropium Medneb PHA 06/07/24 In Process (Atrovent Medneb) 11:45 Comprehensive LAB 06/08/24 In Process Metabolic Panel 04:00 Magnesium LAB 06/08/24 In Process 04:00 Phosphorus LAB 06/08/24 In Process 04:00 Clinimix Per Pharmacy MIGUEL ANGEL 06/07/24 In Process 22:00 Nutritional PHA 06/08/24 In Process Supplements (Ensure 06:00 Tube Feeding DIET 06/07/24 Transmitted Dinner Complete Blood Count LAB 06/08/24 In Process 04:00 Dietary Evaluation Review Comments: 1. Continue NPO diet per [employer]OM[employer]IVE CRANE OPERATOR, high-risk for aspiration 2. Currently on PN, awaiting PEG placement; suggest continuation of Clinimix 4.25/10 @ 83 ml/hr in the interim (provides 1020 kcal, meets 100% pro needs, 82% kcal needs) *may add IVLE 250 ml 20% 3x/wk to meet remainder of kcal needs 3. Once PEG tube in place and confirmed ready to use, recommend TF w/ Jevity 1.2; begin at 10 ml/hr and advance by 10 ml Q4 hrs or as tolerated to goal-rate of 50 ml/hr continuously *note: If bolus feeds desired at D/C, pt will require 5 cartons (237 ml/carton) daily 4. Monitor BMP/lytes and replete to WNL/PRN Expected Outcomes/Goals: Improved nutritional status, weight maintenance/gradual gain Date of Service: Jun 08, 2024 Billing Provider: KATHERINE SUE MD Common Visit Codes: [id number] INP/OBS CARE(HIGH) SANTIAGO TAVAREZ Jun 08, 2024 11:19 KATHERINE SUE MD Jun 09, 2024 19:07
[2024-06-08 11:42] LABS: Large Platelets FEW; Platelet Estimate Adequa
[2024-06-08 11:49] LABS: Alanine Aminotransferase 27 U/L (7-40); Alkaline Phosphatase 65 U/L (46-116); Calcium 9.2 mg/dL (8.7-10.4); Carbon Dioxide 27 mmol/L (20-31); Chloride 101 mmol/L (98-107)
[2024-06-08 11:50] LABS: Anion Gap 6 (5-15); Aspartate Aminotransferase 23 U/L (13-40); BUN/Creatinine Ratio 25.9 (10.0-20.0); Bilirubin, Total 0.5 mg/dL (0.2-1.0); Blood Urea Nitrogen 14 mg/dL (9-23); Magnesium 1.7 mg/dL (1.6-2.6); Phosphorus 2.7 mg/dL (2.4-5.1); Total Protein 6.3 g/dL (5.7-8.2)
[2024-06-08 11:58] LABS: Glucose 117 mg/dL (74-106); Potassium 3.5 mmol/L (3.5-5.1); Sodium 134 mmol/L (136-145)
[2024-06-08] MEDS: MORPHINE SULFATE INJ 2 MG/ml SYRG IV PRN (17:16)
[2024-06-09] VITALS (11 sets, daily range): BP systolic 116–168; BP diastolic 44–79; PULSE 81–96; RESP 16–18; TEMP 97.6–99.1; O2SAT 97–100
[2024-06-09] MEDS: hydrALAZINE HCL 20 MG/ML VL IV PRN (01:15)
[2024-06-09 07:45] LABS: Alanine Aminotransferase 25 U/L (7-40); Albumin 3.7 g/dL (3.2-4.8); Alkaline Phosphatase 60 U/L (46-116); Anion Gap 11 (5-15); Aspartate Aminotransferase 18 U/L (13-40); BUN/Creatinine Ratio 30.4 (10.0-20.0); Blood Urea Nitrogen 14 mg/dL (9-23); Carbon Dioxide 23 mmol/L (20-31); Chloride 100 mmol/L (98-107); Magnesium 1.8 mg/dL (1.6-2.6); Phosphorus 2.8 mg/dL (2.4-5.1)
[2024-06-09 07:59] LABS: Bilirubin, Total 0.3 mg/dL (0.2-1.0); Glucose 119 mg/dL (74-106); Potassium 2.9 mmol/L (3.5-5.1); Sodium 134 mmol/L (136-145)
[2024-06-09 08:29] LABS: Calcium 8.6 mg/dL (8.7-10.4)
[2024-06-09] MEDS: POTASSIUM CHL 20 Meq TABLET PO ONE (09:41)
--- NOTE | 2024-06-09 10:28 | DVHPN2 ---
Progress Note - Dictate Date Seen: Jun 09, 2024 Medical Necessity Reason Pt with a Central, PICC or Fol: Yes The following are medically ne: Wilks Catheter Subjective Patient is seen at bedside Awake and arousable Patient has been started on ensure Clear and two cans have been given Patient's G-tube site is clean He is tolerating G-tube feedings vital signs Vital Sign Date Time Temp Pulse Resp B/P (MAP) Pulse Ox O2 Delivery O2 Flow Rate FiO2 06/09/24 10:00 84 20 143/70 06/09/24 08:07 100 Nasal Cannula 2.0 06/09/24 08:07 28 06/09/24 05:39 98.3 98.3 Total Intake and Output 06/08/24 06/08/24 06/09/24 15:00 23:00 07:00 Intake Total 100 ml 100 ml Output Total 300 ml 1200 ml Balance 100 ml -300 ml -1100 ml medications Current Medications Medications Dose Ordered Sig/Elian Route Start Time Stop Time Status Last Admin Dose Admin Docusate Sodium 100 mg BIDPRN PRN PO 05/29/24 21:00 Acetaminophen 650 mg Q6HP PRN PO 05/29/24 21:00 Amino Acids 0 ml @ 0 mls/hr PER PHARMACY IV 06/02/24 11:30 Diagnostic Test (Pha) 1 strip Q6HR 06/02/24 18:00 06/09/24 06:04 1 STRIP Insulin Human Regular FOLLOW SLIDING SCALE Q6HR SC 06/02/24 18:00 06/08/24 12:03 2 UNITS Dextrose 50 ml UD IV 06/02/24 12:30 Amino Acids/ Electrolytes/ Dextrose 1,000 ml @ 41 mls/hr DAILY@2200 IV 06/02/24 22:00 06/08/24 22:39 41 MLS/HR Hydralazine HCl 10 mg Q6HP PRN IV 06/05/24 07:00 06/09/24 01:15 10 MG Doxycycline Hyclate 100 ml @ 50 mls/hr Q12H IV 06/06/24 22:00 06/09/24 09:31 50 MLS/HR Albuterol 2.5 mg Q6HWA PRN NEB 06/07/24 11:45 06/08/24 15:17 2.5 MG Ipratropium [place] 0.5 mg Q6HWA PRN NEB 06/07/24 11:45 06/08/24 15:17 0.5 MG Morphine Sulfate 1 mg Q6HP PRN IV 06/08/24 14:30 06/09/24 09:30 1 MG Enteral Nutritional Formula 240 ml QID PO 06/09/24 12:00 objective General: Cachectic-looking, afebrile, Cardiovascular: Regular S1 and S2. Respiratory:Clear lung sounds on auscultation Abdomen: Soft, nontender, nondistended, normoactive bowel sounds, peg tube site is clean laboratory and microbiology Laboratory Tests 06/09/24 05:43 06/08/24 10:49 Test 06/09/24 05:43 Range/Units Serum Glucose 119 H 74-106 mg/dL Problems(with codes): (1) S/P gastrostomy tube (G tube) placement, follow-up exam (2) Failure to thrive (3) Generalized weakness Prognosis Plan Continue supportive care Changed tube feedings to ensure high-protein one can via G-tube 4 times a day G-tube site care GI Services were follow as needed Discharge planning as per hospitalist Dietary Evaluation Review Comments: 1. Continue NPO diet per INSURANCE ACCOUNT SPECIALIST, high-risk for aspiration 2. Currently on PN, awaiting PEG placement; suggest continuation of Clinimix 4.25/10 @ 83 ml/hr in the interim (provides 1020 kcal, meets 100% pro needs, 82% kcal needs) *may add IVLE 250 ml 20% 3x/wk to meet remainder of kcal needs 3. Once PEG tube in place and confirmed ready to use, recommend TF w/ Jevity 1.2; begin at 10 ml/hr and advance by 10 ml Q4 hrs or as tolerated to goal-rate of 50 ml/hr continuously *note: If bolus feeds desired at D/C, pt will require 5 cartons (237 ml/carton) daily 4. Monitor BMP/lytes and replete to WNL/PRN Expected Outcomes/Goals: Improved nutritional status, weight maintenance/gradual gain Plan discussed with: Patient, Other (Nurse) FRANKLYN VICENTE MD Jun 09, 2024 10:28
[2024-06-09] MEDS ORDERED: POTASSIUM CHL 20 Meq TABLET PO ONE (12:00)
[2024-06-09] MEDS: Ensure HIGH Protein Chocolate 8oz Bottle PO SCH (12:28)
--- NOTE | 2024-06-09 15:07 | DVHPNRES ---
Progress Note Date Seen: Jun 09, 2024 Resident Creating Document: SARAH PETERSEN RESIDENT Medical Necessity Reason Pt with a Central, PICC or Fol: Yes The following are medically ne: Wilks Catheter Subjective Review of Systems VISHAL BATEMAN is a 74-year-old male with a PMH of cerebral palsy by and scoliosis presented to the accompanied by caregiver with the chief complaints of worsening of generalized weakness for past 2 weeks. Caregiver reported patient has been not eating, drinking for past 3 days and also usually patient can get himself up to chair and bedside commode med for past 2 weeks he is unable to transfer himself to wheelchair and found on the floor 2 times likely fall from bed. Caregiver denies fever, nausea, vomiting, flu-like symptoms, and other acute associated symptoms. Patient reported back pain himself. But denies any other complaint. PMH: Cerebral palsy, scoliosis PSH: Denies Family history: Reviewed, noncontributory Social history: Lives alone at home. Denies smoking, alcohol and other drug abuse Allergies: Sulfa allergies Home medications: Baclofen 10 mg 06/01 - Patient seen and examined at the bedside. CT head unremarkable. Failed Swallow eval. 05/31 - patient seen and examined at the bedside. Repeat swallow eval pending. White cell count increased to 14, serum bicarb going down, anion gap increased. Lactic acid within normal limit. Antibiotics broadened. Failed swallow eval twice now. 06/01-Dr. Joyce: HA May wants to proceed with hospice. Patient was prior on hospice at home but was not getting adequate care. We will consult social to help with hospice and discharge planning. We will get MRI since dysphagia is new for the patient. 06/02-patient seen and examined at the bedside. No acute distress. Started Clinimix. 06/03 - . Patient seen and examined at the bedside. Patient refused PEG tube placement. Agrees with parenteral nutrition at this time. 06/04 - patient seen and examined at the bedside, POA came to see the patient, patient agrees for PEG tube placement. GI consulted. 06/05- patient seen and examined at bedside. Potassium and magnesium replenised. GI scheduled PEG tube placement on 06/07 06/06 - patient seen and examined at the bedside. Electrolytes replenish. NPO starting midnight. 06/07 - patient seen and examined at the bedside. HA Rowell at bedside. PEG tube placement today. Residual to be checked in a.m.. 06/08 - status post PEG tube placement. Peg tube site is dressed/clean/intact. Feedings to be started later today. Discontinued IV Zosyn. 06/09/2024-status post PEG tube placement. Patient was seen by state assessed properties director. Recommended change tube feeding to ensure high-protein 1 can via G-tube 4 times a day. POTASSIUM TODAY 2.9. Ordered potassium supplement through PEG tube. Objective vital signs Vital Sign Date Time Temp Pulse Resp B/P (MAP) Pulse Ox O2 Delivery O2 Flow Rate FiO2 06/09/24 10:00 100 Nasal Cannula 1.0 06/09/24 10:00 84 20 143/70 06/09/24 10:00 24 06/09/24 09:00 97.8 97.8 Total Intake and Output 06/08/24 06/08/24 06/09/24 15:00 23:00 07:00 Intake Total 100 ml 100 ml Output Total 300 ml 1200 ml Balance 100 ml -300 ml -1100 ml medications Current Medications Medications Dose Ordered Sig/Elian Route Start Time Stop Time Status Last Admin Dose Admin Docusate Sodium 100 mg BIDPRN PRN PO 05/29/24 21:00 Acetaminophen 650 mg Q6HP PRN PO 05/29/24 21:00 Amino Acids 0 ml @ 0 mls/hr PER PHARMACY IV 06/02/24 11:30 Diagnostic Test (Pha) 1 strip Q6HR 06/02/24 18:00 06/09/24 11:44 1 STRIP Insulin Human Regular FOLLOW SLIDING SCALE Q6HR SC 06/02/24 18:00 06/08/24 12:03 2 UNITS Dextrose 50 ml UD IV 06/02/24 12:30 Amino Acids/ Electrolytes/ Dextrose 1,000 ml @ 41 mls/hr DAILY@2200 IV 06/02/24 22:00 06/08/24 22:39 41 MLS/HR Hydralazine HCl 10 mg Q6HP PRN IV 06/05/24 07:00 06/09/24 01:15 10 MG Doxycycline Hyclate 100 ml @ 50 mls/hr Q12H IV 06/06/24 22:00 06/09/24 09:31 50 MLS/HR Albuterol 2.5 mg Q6HWA PRN NEB 06/07/24 11:45 06/08/24 15:17 2.5 MG Ipratropium [place] 0.5 mg Q6HWA PRN NEB 06/07/24 11:45 06/08/24 15:17 0.5 MG Morphine Sulfate 1 mg Q6HP PRN IV 06/08/24 14:30 06/09/24 09:30 1 MG Enteral Nutritional Formula 240 ml QID PO 06/09/24 12:00 06/09/24 12:28 240 ML Examination Elderly male patient lying in bed, in no acute distress, General: Cachectic-looking, afebrile, palor, mucosae are moist Cardiovascular: Regular S1 and S2. No murmurs, gallops or rubs. No JVD elevation. No pedal edema Respiratory: Normal B/L air entry on room air. Clear lung sounds on auscultation Abdomen: Soft, nontender, nondistended, normoactive bowel sounds, no rebound tenderness, no organomegaly, no masses. Wilks seen. Peg tube seen, dressing dry clean and intact Genitourinary: Deferred MSK/skin: Mobilizes 4 limbs. Skin is dry and warm Neurological: No motor, no sensitive deficits, normal speech. Pupils are isocoric and reactive. Psych/Mental Status: A/Ox2 laboratory and microbiology Laboratory Tests 06/09/24 05:43 06/08/24 10:49 Test 06/09/24 05:43 Range/Units Serum Glucose 119 H 74-106 mg/dL Microbiology Date/Time Source Procedure Growth Status 05/30/24 22:30 Nose MRSA Screen - Final Complete 05/29/24 17:44 Blood Blood Culture - Final NO GROWTH AFTER 5 DAYS OF INCUBATION. Complete Problem List/Assessment/Plan Problem List/Assessment/Plan Problem List/Assessment/Plan Generalized weakness probably secondary to possible acute stroke History of cerebral palsy Likely Stroke CT head unremarkable Continue IV fluid Could not complete MRI as the patient could not lie still Dysphagia - new onset status with PEG tube placement Failure to thrive Started Clinimix per pharmacy 06/02 Stopped Clinimix on 06/09/24 -06/09/2024-status post PEG tube placement. Patient was seen by state assessed properties director. Recommended change tube feeding to ensure high-protein 1 can via G-tube 4 times a day. GI Consulted - PEG tube placement completed 06/07 Clear ensure 240 mL q.6 hour starting 06/08 Sepsis secondary to Pneumonia, gram positive and Negative IV Ceftriaxone and IV azithro 05/30. Discontinued 05/31 Patient completed IV antibiotics course IV Zosyn 05/31 till 06/08 Continue IV doxy starting 05/31 MRSA nares pending Lactic unremarkable Mechanical fall without LOC Head CT unremarkable Microscopic hematuria Chronic Wilks catheter Mild Anemia, likely normocytic UA shows 2+ blood in 158 RBC Hypokalemia-replenished Hypomagnesemia Replenishing Lovenox 40 mg sc daily Failed swallow eval thrice, status post G-tube placement. DIET : NPO, G-tube feeding clear ensure ON accu checks Patient's POA, [facility] with [facility]. Goals of care discussed with the patient, caregiver and (niece over the phone), over 30 minutes DNR Plan discussed with patient and the nurse in which all questions have been answered Case discussed with Dr. Sue Plan discussed with: Patient, Other (HA rodriguez) Plan discussed with: Patient, Other (RN) Dietary Evaluation Review Comments: 1. Continue NPO diet per [employer], high-risk for aspiration 2. Currently on PN, awaiting PEG placement; suggest continuation of Clinimix 4.25/10 @ 83 ml/hr in the interim (provides 1020 kcal, meets 100% pro needs, 82% kcal needs) *may add IVLE 250 ml 20% 3x/wk to meet remainder of kcal needs 3. Once PEG tube in place and confirmed ready to use, recommend TF w/ Jevity 1.2; begin at 10 ml/hr and advance by 10 ml Q4 hrs or as tolerated to goal-rate of 50 ml/hr continuously *note: If bolus feeds desired at D/C, pt will require 5 cartons (237 ml/carton) daily 4. Monitor BMP/lytes and replete to WNL/PRN Expected Outcomes/Goals: Improved nutritional status, weight maintenance/gradual gain Date of Service: Jun 09, 2024 Billing Provider: KATHERINE SUE MD Common Visit Codes: [id number] INP/OBS CARE(HIGH) SARAH PETERSEN RESIDENT Jun 09, 2024 15:07 KATHERINE SUE MD Jun 09, 2024 19:07
[2024-06-09] MEDS: POTASSIUM EFFERVESENT TAB 25 MEQ PEG ONE (17:12)
[2024-06-10] VITALS (12 sets, daily range): BP systolic 126–140; BP diastolic 61–95; PULSE 76–92; RESP 14–18; TEMP 97.2–98.9; O2SAT 94–100
[2024-06-10 07:54] LABS: Albumin 3.5 g/dL (3.2-4.8); BUN/Creatinine Ratio 34.9 (10.0-20.0); Magnesium 1.9 mg/dL (1.6-2.6)
[2024-06-10 08:01] LABS: Phosphorus 2.4 mg/dL (2.4-5.1)
[2024-06-10] MEDS: ACETAMINOPHEN 325 MG TAB PO PRN (13:36)
--- NOTE | 2024-06-10 14:15 | DVH ---
EXAM: US BI LAT UPPER DVT Clinical History: BILATERAL UPPER ARM SWELLING, r/o dvt Comparison: None Technique: Duplex Doppler evaluation of the deep venous systems of both upper extremities from the internal jugu lar to the ulnar veins including color Doppler and spectral/pulsed waveform analysis was performed. Findings: Normal compressibility and color Doppler flow is seen in the bilateral upper extremity veins includin g the internal jugular, subclavian, axillary, brachial, radial and ulnar veins. Superficial venous thrombi in the right cephalic and left cephalic and basilic veins. Impression: 1. No sonographic evidence for bilateral upper extremity DVT. 2. Superficial venous thrombi in the right cephalic and left cephalic and basilic veins.
[2024-06-10] MEDS: Jevity 1.2 Cal/Fiber 1 Liter GT SCH (16:00)
[2024-06-10] MEDS ORDERED: BACLOFEN 10 MG TAB PO PRN (17:00)
--- NOTE | 2024-06-10 17:16 | DVHPNRES ---
Progress Note Date Seen: Jun 10, 2024 Resident Creating Document: SANTIAGO TAVAREZ RESIDENT Medical Necessity Reason Pt with a Central, PICC or Fol: Yes The following are medically ne: Wilks Catheter Subjective Review of Systems VISHAL BATEMAN is a 74-year-old male with a PMH of cerebral palsy by and scoliosis presented to the accompanied by caregiver with the chief complaints of worsening of generalized weakness for past 2 weeks. Caregiver reported patient has been not eating, drinking for past 3 days and also usually patient can get himself up to chair and bedside commode med for past 2 weeks he is unable to transfer himself to wheelchair and found on the floor 2 times likely fall from bed. Caregiver denies fever, nausea, vomiting, flu-like symptoms, and other acute associated symptoms. Patient reported back pain himself. But denies any other complaint. PMH: Cerebral palsy, scoliosis PSH: Denies Family history: Reviewed, noncontributory Social history: Lives alone at home. Denies smoking, alcohol and other drug abuse Allergies: Sulfa allergies Home medications: Baclofen 10 mg 06/01 - Patient seen and examined at the bedside. CT head unremarkable. Failed Swallow eval. 05/31 - patient seen and examined at the bedside. Repeat swallow eval pending. White cell count increased to 14, serum bicarb going down, anion gap increased. Lactic acid within normal limit. Antibiotics broadened. Failed swallow eval twice now. 06/01-Dr. Joyce: HA Simentalyl wants to proceed with hospice. Patient was prior on hospice at home but was not getting adequate care. We will consult social to help with hospice and discharge planning. We will get MRI since dysphagia is new for the patient. 06/02-patient seen and examined at the bedside. No acute distress. Started Clinimix. 06/03 - . Patient seen and examined at the bedside. Patient refused PEG tube placement. Agrees with parenteral nutrition at this time. 06/04 - patient seen and examined at the bedside, POA came to see the patient, patient agrees for PEG tube placement. GI consulted. 06/05- patient seen and examined at bedside. Potassium and magnesium replenised. GI scheduled PEG tube placement on 06/07 06/06 - patient seen and examined at the bedside. Electrolytes replenish. NPO starting midnight. 06/07 - patient seen and examined at the bedside. POA Lelia at bedside. PEG tube placement today. Residual to be checked in a.m.. 06/08 - status post PEG tube placement. Peg tube site is dressed/clean/intact. Feedings to be started later today. Discontinued IV Zosyn. 06/09 - seen and examined at the bedside. Ultrasound valvular extremity completed, shows superficial thrombophlebitis. Warm compresses and GT tube Keflex 500 b.i.d. started. Objective vital signs Vital Sign Date Time Temp Pulse Resp B/P (MAP) Pulse Ox O2 Delivery O2 Flow Rate FiO2 06/10/24 16:30 98.1 77 16 130/61 (84) 95 98.1 06/10/24 07:40 Nasal Cannula 2.0 06/10/24 07:40 28 Total Intake and Output 06/09/24 06/09/24 06/10/24 15:00 23:00 07:00 Intake Total 100 ml 340 ml Output Total 3200 ml 860 ml Balance 100 ml -3200 ml -520 ml medications Current Medications Medications Dose Ordered Sig/Elian Route Start Time Stop Time Status Last Admin Dose Admin Docusate Sodium 100 mg BIDPRN PRN PO 05/29/24 21:00 Acetaminophen 650 mg Q6HP PRN PO 05/29/24 21:00 06/10/24 13:36 650 MG Hydralazine HCl 10 mg Q6HP PRN IV 06/05/24 07:00 06/09/24 01:15 10 MG Doxycycline Hyclate 100 ml @ 50 mls/hr Q12H IV 06/06/24 22:00 06/10/24 10:27 50 MLS/HR Albuterol 2.5 mg Q6HWA PRN NEB 06/07/24 11:45 06/08/24 15:17 2.5 MG Ipratropium [place] 0.5 mg Q6HWA PRN NEB 06/07/24 11:45 06/08/24 15:17 0.5 MG Morphine Sulfate 1 mg Q6HP PRN IV 06/08/24 14:30 06/10/24 04:42 1 MG Enteral Nutritional Formula 1,000 ml 50ML/HR GT 06/10/24 12:15 Baclofen 10 mg BID PRN PO 06/10/24 17:00 Examination Elderly male patient lying in bed, in no acute distress, General: Cachectic-looking, afebrile, palor, mucosae are moist Cardiovascular: Regular S1 and S2. No murmurs, gallops or rubs. No JVD elevation. No pedal edema Respiratory: Normal B/L air entry on room air. Clear lung sounds on auscultation Abdomen: Soft, nontender, nondistended, normoactive bowel sounds, no rebound tenderness, no organomegaly, no masses. Wilks seen. Peg tube seen, dressing dry clean and intact Genitourinary: Deferred MSK/skin: Mobilizes 4 limbs. Skin is dry and warm Neurological: No motor, no sensitive deficits, normal speech. Pupils are isocoric and reactive. Psych/Mental Status: A/Ox2 laboratory and microbiology Laboratory Tests 06/10/24 06:18 06/08/24 10:49 Test 06/10/24 06:18 Range/Units Serum Glucose 142 H 74-106 mg/dL Microbiology Date/Time Source Procedure Growth Status 05/30/24 22:30 Nose MRSA Screen - Final Complete 05/29/24 17:44 Blood Blood Culture - Final NO GROWTH AFTER 5 DAYS OF INCUBATION. Complete Labs and/or images reviewed: Labs reviewed by me, Image(s) reviewed by me Problem List/Assessment/Plan Problem List/Assessment/Plan Generalized weakness probably secondary to possible acute stroke History of cerebral palsy Likely Stroke CT head unremarkable Continue IV fluid Could not complete MRI as the patient could not lie still Dysphagia - new onset status with PEG tube placement Failure to thrive Started Clinimix per pharmacy 06/02 GI Consulted - PEG tube placement completed 06/07 Discontinued Clear ensure 240 mL q.6 hour starting 06/08 Jevity 1.2 50 cc an hour Sepsis secondary to Pneumonia, gram positive and Negative IV Ceftriaxone and IV azithro 05/30. Discontinued 05/31 Patient completed IV antibiotics course IV Zosyn 05/31 till 06/08 Continue IV doxy starting 05/31 MRSA nares pending Lactic unremarkable Mechanical fall without LOC Head CT unremarkable Microscopic hematuria Chronic Wilks catheter Mild Anemia, likely normocytic UA shows 2+ blood in 158 RBC Hypokalemia Hypomagnesemia Replenishing Superficial venous thrombosis Ultrasound completed, shows Superficial venous thrombi in the right cephalic and left cephalic and basilic veins. Warm Compresses and tablet Keflex 500 b.i.d. via G-tube Lovenox 40 mg sc daily Failed swallow eval thrice, status post G-tube placement. DIET : NPO, G-tube feeding Jevity 1.2 50 cc an hour ON accu checks Patient's POA, DC planning initiated with [facility]. Goals of care discussed with the patient, caregiver and (niece over the phone), over 30 minutes DNR Plan discussed with patient and the nurse in which all questions have been answered Case discussed with Dr. Joyce Plan discussed with: Patient, Other (POA michael) My Orders My Orders Orders - SANTIAGO TAVAREZ Procedure Category Date Status Time Nutritional PHA 06/10/24 In Process Supplements (Jevity 12:15 Bi Lat Upper Dvt US 06/10/24 Resulted 13:17 Baclofen Tablet PHA 06/10/24 In Process (Liorisal Tablet) 17:00 * Watch Crystal Grinder CONS 06/10/24 Transmitted Consult Dietary Evaluation Review Comments: 1. Continue NPO diet per [employer], high-risk for aspiration 2. Currently on PN, awaiting PEG placement; suggest continuation of Clinimix 4.25/10 @ 83 ml/hr in the interim (provides 1020 kcal, meets 100% pro needs, 82% kcal needs) *may add IVLE 250 ml 20% 3x/wk to meet remainder of kcal needs 3. Once PEG tube in place and confirmed ready to use, recommend TF w/ Jevity 1.2; begin at 10 ml/hr and advance by 10 ml Q4 hrs or as tolerated to goal-rate of 50 ml/hr continuously *note: If bolus feeds desired at D/C, pt will require 5 cartons (237 ml/carton) daily 4. Monitor BMP/lytes and replete to WNL/PRN Expected Outcomes/Goals: Improved nutritional status, weight maintenance/gradual gain Date of Service: Jun 10, 2024 Billing Provider: MARY VU MD Common Visit Codes: [id number] INP/OBS CARE(HIGH) SANTIAGO TAVAREZ Jun 10, 2024 17:16 MARY VU MD Jun 11, 2024 23:43
[2024-06-10] MEDS: CEPHALEXIN 250 MG CAP PO ONE (17:30)
--- NOTE | 2024-06-10 18:04 | DVHPN2 ---
Progress Note Date Seen: Jun 10, 2024 Resident Creating Document: CATHERINE TINSLEY RESIDENT Medical Necessity Reason Pt with a Central, PICC or Fol: Yes The following are medically ne: Wilks Catheter Subjective Review of Systems Patient seen and examined at bedside. Alert and arousable. Able to answer questions. In yes or no. Status post G-tube insertion Currently on feeding via G-tube, currently 50 mL/hour. No leakage via G-tube insertion site. Clean site. Tolerating G-tube feeding. Objective vital signs Vital Sign Date Time Temp Pulse Resp B/P (MAP) Pulse Ox O2 Delivery O2 Flow Rate FiO2 06/10/24 16:30 98.1 77 16 130/61 (84) 95 98.1 06/10/24 07:40 Nasal Cannula 2.0 06/10/24 07:40 28 Total Intake and Output 06/09/24 06/09/24 06/10/24 15:00 23:00 07:00 Intake Total 100 ml 340 ml Output Total 3200 ml 860 ml Balance 100 ml -3200 ml -520 ml medications Current Medications Medications Dose Ordered Sig/Elian Route Start Time Stop Time Status Last Admin Dose Admin Docusate Sodium 100 mg BIDPRN PRN PO 05/29/24 21:00 Acetaminophen 650 mg Q6HP PRN PO 05/29/24 21:00 06/10/24 13:36 650 MG Hydralazine HCl 10 mg Q6HP PRN IV 06/05/24 07:00 06/09/24 01:15 10 MG Doxycycline Hyclate 100 ml @ 50 mls/hr Q12H IV 06/06/24 22:00 06/10/24 10:27 50 MLS/HR Albuterol 2.5 mg Q6HWA PRN NEB 06/07/24 11:45 06/08/24 15:17 2.5 MG Ipratropium [place] 0.5 mg Q6HWA PRN NEB 06/07/24 11:45 06/08/24 15:17 0.5 MG Morphine Sulfate 1 mg Q6HP PRN IV 06/08/24 14:30 06/10/24 04:42 1 MG Enteral Nutritional Formula 1,000 ml 50ML/HR GT 06/10/24 12:15 Baclofen 10 mg BID PRN PO 06/10/24 17:00 Cephalexin 500 mg BID PO 06/10/24 22:00 Examination Cachectic male, afebrile. Not in acute distress. Cardiovascular was regular S1, no murmurs Lungs clear. No crackles. Cachectic contacted upper and lower extremity Peg tube site is clean, no leakage or redness of skin. laboratory and microbiology Laboratory Tests 06/10/24 06:18 06/08/24 10:49 Test 06/10/24 06:18 Range/Units Serum Glucose 142 H 74-106 mg/dL Microbiology Date/Time Source Procedure Growth Status 05/30/24 22:30 Nose MRSA Screen - Final Complete 05/29/24 17:44 Blood Blood Culture - Final NO GROWTH AFTER 5 DAYS OF INCUBATION. Complete Problem List/Assessment/Plan Problem List/Assessment/Plan Failure to thrive Status post gastrostomy tube placement Dysphagia Fails swallow evaluation Possible stroke Cerebral palsy BMI 14.5 kg/M2 Plan/recommendation Dr Chang Status post PEG tube insertion. Tolerating diet. Clean site. No leakage. No erythema over G-tube insertion. Continue feeding as toleration. Continue supportive care Feeding via G-tube Family waiting for hospice arrangement. Continue supportive care Discharge planning as per primary team. Plan discussed with: Patient, Other (RN) Dietary Evaluation Review Comments: 1. Continue NPO diet per INPATIENT NURSING AIDE, high-risk for aspiration 2. Currently on PN, awaiting PEG placement; suggest continuation of Clinimix 4.25/10 @ 83 ml/hr in the interim (provides 1020 kcal, meets 100% pro needs, 82% kcal needs) *may add IVLE 250 ml 20% 3x/wk to meet remainder of kcal needs 3. Once PEG tube in place and confirmed ready to use, recommend TF w/ Jevity 1.2; begin at 10 ml/hr and advance by 10 ml Q4 hrs or as tolerated to goal-rate of 50 ml/hr continuously *note: If bolus feeds desired at D/C, pt will require 5 cartons (237 ml/carton) daily 4. Monitor BMP/lytes and replete to WNL/PRN Expected Outcomes/Goals: Improved nutritional status, weight maintenance/gradual gain CATHERINE TINSLEY RESIDENT Jun 10, 2024 18:04
[2024-06-10] MEDS: BACLOFEN 10 MG TAB PO SCH (23:48)
[2024-06-10] MEDS: CEPHALEXIN 250 MG CAP PO SCH (23:48)
[2024-06-11] VITALS (14 sets, daily range): BP systolic 118–161; BP diastolic 63–85; PULSE 68–99; RESP 14–20; TEMP 97.2–98.6; O2SAT 91–100
[2024-06-11 07:45] LABS: Anion Gap 8 (5-15); Calcium 9.2 mg/dL (8.7-10.4); Carbon Dioxide 31 mmol/L (20-31); Chloride 98 mmol/L (98-107); Potassium 4.4 mmol/L (3.5-5.1); Sodium 137 mmol/L (136-145)
[2024-06-11 07:51] LABS: BUN/Creatinine Ratio 32.6 (10.0-20.0); Blood Urea Nitrogen 14 mg/dL (9-23)
[2024-06-11 07:55] LABS: Glucose 127 mg/dL (74-106)
--- NOTE | 2024-06-11 16:21 | DVHPNRES ---
Progress Note Date Seen: Jun 11, 2024 Resident Creating Document: SANTIAGO TAVAREZ RESIDENT Medical Necessity Reason Pt with a Central, PICC or Fol: Yes The following are medically ne: Wilks Catheter Objective vital signs Vital Sign Date Time Temp Pulse Resp B/P (MAP) Pulse Ox O2 Delivery O2 Flow Rate FiO2 06/11/24 13:00 97.5 87 16 158/71 (100) 95 97.5 06/11/24 10:00 Room Air 06/11/24 10:00 0 21 Total Intake and Output 06/10/24 06/10/24 06/11/24 15:00 23:00 07:00 Intake Total 340 ml 240 ml Output Total 650 ml 500 ml Balance 340 ml -410 ml -500 ml medications Current Medications Medications Dose Ordered Sig/Elian Route Start Time Stop Time Status Last Admin Dose Admin Docusate Sodium 100 mg BIDPRN PRN PO 05/29/24 21:00 Acetaminophen 650 mg Q6HP PRN PO 05/29/24 21:00 06/11/24 10:44 650 MG Hydralazine HCl 10 mg Q6HP PRN IV 06/05/24 07:00 06/09/24 01:15 10 MG Albuterol 2.5 mg Q6HWA PRN NEB 06/07/24 11:45 06/11/24 08:42 2.5 MG Ipratropium [place] 0.5 mg Q6HWA PRN NEB 06/07/24 11:45 06/11/24 08:42 0.5 MG Morphine Sulfate 1 mg Q6HP PRN IV 06/08/24 14:30 06/10/24 04:42 1 MG Enteral Nutritional Formula 1,000 ml 50ML/HR GT 06/10/24 12:15 06/10/24 16:00 1,000 ML Cephalexin 500 mg BID PO 06/10/24 22:00 06/11/24 10:45 500 MG Baclofen 10 mg BID PO 06/10/24 22:00 06/11/24 10:45 10 MG laboratory and microbiology Laboratory Tests 06/11/24 05:54 06/08/24 10:49 Test 06/11/24 05:54 Range/Units Serum Glucose 127 H 74-106 mg/dL Microbiology Date/Time Source Procedure Growth Status 05/30/24 22:30 Nose MRSA Screen - Final Complete 05/29/24 17:44 Blood Blood Culture - Final NO GROWTH AFTER 5 DAYS OF INCUBATION. Complete Problem List/Assessment/Plan Problem List/Assessment/Plan Generalized weakness probably secondary to possible acute stroke History of cerebral palsy Likely Stroke CT head unremarkable Continue IV fluid Could not complete MRI as the patient could not lie still Dysphagia - new onset status with PEG tube placement Failure to thrive Started Clinimix per pharmacy 06/02 GI Consulted - PEG tube placement completed 06/07 Discontinued Clear ensure 240 mL q.6 hour starting 06/08 Jevity 1.2 50 cc an hour Sepsis secondary to Pneumonia, gram positive and Negative IV Ceftriaxone and IV azithro 05/30. Discontinued 05/31 Patient completed IV antibiotics course IV Zosyn 05/31 till 06/08 Continue IV doxy starting 05/31 MRSA nares pending Lactic unremarkable Mechanical fall without LOC Head CT unremarkable Microscopic hematuria Chronic Wilks catheter Mild Anemia, likely normocytic UA shows 2+ blood in 158 RBC Hypokalemia Hypomagnesemia Replenishing Superficial venous thrombosis Ultrasound completed, shows Superficial venous thrombi in the right cephalic and left cephalic and basilic veins. Warm Compresses and tablet Keflex 500 b.i.d. via G-tube Lovenox 40 mg sc daily Failed swallow eval thrice, status post G-tube placement. DIET : NPO, G-tube feeding Jevity 1.2 50 cc an hour ON accu checks Patient's POA, DC planning initiated with [facility]. Goals of care discussed with the patient, caregiver and (niece over the phone), over 30 minutes DNR Plan discussed with patient and the nurse in which all questions have been answered Case discussed with Dr. Joyce My Orders My Orders Orders - SANTIAGO TAVAREZ RESIDENT Procedure Category Date Status Time Cephalexin Capsule PHA 06/10/24 In Process (Keflex Capsule) 22:00 Warm Compresses ORDERS 06/10/24 Transmitted 17:18 Baclofen Tablet PHA 06/10/24 In Process (Liorisal Tablet) 22:00 Discontinue Tele MIGUEL ANGEL 06/11/24 In Process 07:35 Transfer Orders XFER 06/11/24 Transmitted 07:35 Dietary Evaluation Review Comments: 1. Continue NPO diet per [employer], high-risk for aspiration 2. Currently on PN, awaiting PEG placement; suggest continuation of Clinimix 4.25/10 @ 83 ml/hr in the interim (provides 1020 kcal, meets 100% pro needs, 82% kcal needs) *may add IVLE 250 ml 20% 3x/wk to meet remainder of kcal needs 3. Once PEG tube in place and confirmed ready to use, recommend TF w/ Jevity 1.2; begin at 10 ml/hr and advance by 10 ml Q4 hrs or as tolerated to goal-rate of 50 ml/hr continuously *note: If bolus feeds desired at D/C, pt will require 5 cartons (237 ml/carton) daily 4. Monitor BMP/lytes and replete to WNL/PRN Expected Outcomes/Goals: Improved nutritional status, weight maintenance/gradual gain SANTIAGO TAVAREZ RESIDENT Jun 11, 2024 16:21
[2024-06-11] MEDS ORDERED: [UNRECOGNIZED DRUG - CODE] PO (16:39)
[2024-06-11] MEDS ORDERED: CEPH250C PO (16:39)
--- NOTE | 2024-06-11 16:46 | DVHPN2 ---
Progress Note Date Seen: Jun 11, 2024 Resident Creating Document: CATHERINE TINSLEY RESIDENT Medical Necessity Reason Pt with a Central, PICC or Fol: Yes The following are medically ne: Wilks Catheter Subjective Review of Systems No new complaints. Patient tolerating diet via G-tube. Appropriate G care No leakage via G-tube insertion, clean G-tube insertion site. Objective vital signs Vital Sign Date Time Temp Pulse Resp B/P (MAP) Pulse Ox O2 Delivery O2 Flow Rate FiO2 06/11/24 16:34 97.3 83 14 118/68 (85) 96 97.3 06/11/24 15:10 0.0 06/11/24 10:00 Room Air 06/11/24 10:00 21 Total Intake and Output 06/10/24 06/10/24 06/11/24 15:00 23:00 07:00 Intake Total 340 ml 240 ml Output Total 650 ml 500 ml Balance 340 ml -410 ml -500 ml medications Current Medications Medications Dose Ordered Sig/Elian Route Start Time Stop Time Status Last Admin Dose Admin Docusate Sodium 100 mg BIDPRN PRN PO 05/29/24 21:00 Acetaminophen 650 mg Q6HP PRN PO 05/29/24 21:00 06/11/24 10:44 650 MG Hydralazine HCl 10 mg Q6HP PRN IV 06/05/24 07:00 06/09/24 01:15 10 MG Albuterol 2.5 mg Q6HWA PRN NEB 06/07/24 11:45 06/11/24 08:42 2.5 MG Ipratropium [place] 0.5 mg Q6HWA PRN NEB 06/07/24 11:45 06/11/24 08:42 0.5 MG Morphine Sulfate 1 mg Q6HP PRN IV 06/08/24 14:30 06/10/24 04:42 1 MG Enteral Nutritional Formula 1,000 ml 50ML/HR GT 06/10/24 12:15 06/10/24 16:00 1,000 ML Cephalexin 500 mg BID PO 06/10/24 22:00 06/11/24 10:45 500 MG Baclofen 10 mg BID PO 06/10/24 22:00 06/11/24 10:45 10 MG Examination Cachectic male, afebrile. Not in acute distress. Cardiovascular was regular S1, no murmurs Lungs clear. No crackles. Cachectic contacted upper and lower extremity Peg tube site is clean, no leakage or redness of skin. laboratory and microbiology Laboratory Tests 06/11/24 05:54 06/08/24 10:49 Test 06/11/24 05:54 Range/Units Serum Glucose 127 H 74-106 mg/dL Microbiology Date/Time Source Procedure Growth Status 05/30/24 22:30 Nose MRSA Screen - Final Complete 05/29/24 17:44 Blood Blood Culture - Final NO GROWTH AFTER 5 DAYS OF INCUBATION. Complete Problem List/Assessment/Plan Problem List/Assessment/Plan Failure to thrive Status post gastrostomy tube placement Dysphagia Fails swallow evaluation Possible stroke Cerebral palsy BMI 14.5 kg/M2 Plan/recommendation Dr Chang Status post PEG tube insertion. Tolerating diet. Clean site. No leakage. No erythema over G-tube insertion. Continue feeding as toleration. Continue supportive care Feeding via G-tube Family waiting for hospice arrangement. Continue supportive care Discharge planning as per primary team Plan discussed with: Patient, Other (RN) Dietary Evaluation Review Comments: 1. Continue NPO diet per [employer], high-risk for aspiration 2. Currently on PN, awaiting PEG placement; suggest continuation of Clinimix 4.25/10 @ 83 ml/hr in the interim (provides 1020 kcal, meets 100% pro needs, 82% kcal needs) *may add IVLE 250 ml 20% 3x/wk to meet remainder of kcal needs 3. Once PEG tube in place and confirmed ready to use, recommend TF w/ Jevity 1.2; begin at 10 ml/hr and advance by 10 ml Q4 hrs or as tolerated to goal-rate of 50 ml/hr continuously *note: If bolus feeds desired at D/C, pt will require 5 cartons (237 ml/carton) daily 4. Monitor BMP/lytes and replete to WNL/PRN Expected Outcomes/Goals: Improved nutritional status, weight maintenance/gradual gain CATHERINE TINSLEY RESIDENT Jun 11, 2024 16:46
--- NOTE | 2024-06-11 17:32 | DVHPNRES ---
Progress Note Date Seen: Jun 11, 2024 Resident Creating Document: SANTIAGO TAVAREZ RESIDENT Medical Necessity Reason Pt with a Central, PICC or Fol: Yes The following are medically ne: Wilks Catheter Subjective Review of Systems VISHAL BATEMAN is a 74-year-old male with a PMH of cerebral palsy by and scoliosis presented to the accompanied by caregiver with the chief complaints of worsening of generalized weakness for past 2 weeks. Caregiver reported patient has been not eating, drinking for past 3 days and also usually patient can get himself up to chair and bedside commode med for past 2 weeks he is unable to transfer himself to wheelchair and found on the floor 2 times likely fall from bed. Caregiver denies fever, nausea, vomiting, flu-like symptoms, and other acute associated symptoms. Patient reported back pain himself. But denies any other complaint. PMH: Cerebral palsy, scoliosis PSH: Denies Family history: Reviewed, noncontributory Social history: Lives alone at home. Denies smoking, alcohol and other drug abuse Allergies: Sulfa allergies Home medications: Baclofen 10 mg 06/01 - Patient seen and examined at the bedside. CT head unremarkable. Failed Swallow eval. 05/31 - patient seen and examined at the bedside. Repeat swallow eval pending. White cell count increased to 14, serum bicarb going down, anion gap increased. Lactic acid within normal limit. Antibiotics broadened. Failed swallow eval twice now. 06/01-Dr. Joyce: HA [facility] wants to proceed with hospice. Patient was prior on hospice at home but was not getting adequate care. We will consult social to help with hospice and discharge planning. We will get MRI since dysphagia is new for the patient. 06/02-patient seen and examined at the bedside. No acute distress. Started Clinimix. 06/03 - . Patient seen and examined at the bedside. Patient refused PEG tube placement. Agrees with parenteral nutrition at this time. 06/04 - patient seen and examined at the bedside, POA came to see the patient, patient agrees for PEG tube placement. GI consulted. 06/05- patient seen and examined at bedside. Potassium and magnesium replenised. GI scheduled PEG tube placement on 06/07 06/06 - patient seen and examined at the bedside. Electrolytes replenish. NPO starting midnight. 06/07 - patient seen and examined at the bedside. POA Lelia at bedside. PEG tube placement today. Residual to be checked in a.m.. 06/08 - status post PEG tube placement. Peg tube site is dressed/clean/intact. Feedings to be started later today. Discontinued IV Zosyn. 06/09 - seen and examined at the bedside. Ultrasound upper extremity completed, shows superficial thrombophlebitis. Warm compresses and GT tube Keflex 500 b.i.d. started. 06/10 - patient seen and examined at the bedside. Patient is medically cleared to be discharged. Discharged to home. Multiple hospice has denied patient at this point. Per POA, patient has no caregiver available at home and she can not receive the patient. Objective vital signs Vital Sign Date Time Temp Pulse Resp B/P (MAP) Pulse Ox O2 Delivery O2 Flow Rate FiO2 06/11/24 16:34 97.3 83 14 118/68 (85) 96 97.3 06/11/24 15:10 0.0 06/11/24 10:00 Room Air 06/11/24 10:00 21 Total Intake and Output 06/10/24 06/10/24 06/11/24 15:00 23:00 07:00 Intake Total 340 ml 240 ml Output Total 650 ml 500 ml Balance 340 ml -410 ml -500 ml medications Current Medications Medications Dose Ordered Sig/Elian Route Start Time Stop Time Status Last Admin Dose Admin Docusate Sodium 100 mg BIDPRN PRN PO 05/29/24 21:00 Acetaminophen 650 mg Q6HP PRN PO 05/29/24 21:00 06/11/24 10:44 650 MG Hydralazine HCl 10 mg Q6HP PRN IV 06/05/24 07:00 06/09/24 01:15 10 MG Albuterol 2.5 mg Q6HWA PRN NEB 06/07/24 11:45 06/11/24 08:42 2.5 MG Ipratropium [place] 0.5 mg Q6HWA PRN NEB 06/07/24 11:45 06/11/24 08:42 0.5 MG Morphine Sulfate 1 mg Q6HP PRN IV 06/08/24 14:30 06/10/24 04:42 1 MG Enteral Nutritional Formula 1,000 ml 50ML/HR GT 06/10/24 12:15 06/10/24 16:00 1,000 ML Cephalexin 500 mg BID PO 06/10/24 22:00 06/11/24 10:45 500 MG Baclofen 10 mg BID PO 06/10/24 22:00 06/11/24 10:45 10 MG Examination Elderly male patient lying in bed, in no acute distress, General: Cachectic-looking, afebrile, palor, mucosae are moist Cardiovascular: Regular S1 and S2. No murmurs, gallops or rubs. No JVD elevation. No pedal edema Respiratory: Normal B/L air entry on room air. Clear lung sounds on auscultation Abdomen: Soft, nontender, nondistended, normoactive bowel sounds, no rebound tenderness, no organomegaly, no masses. Wilks seen. Peg tube seen, dressing dry clean and intact Genitourinary: Deferred MSK/skin: Mobilizes 4 limbs. Skin is dry and warm Neurological: No motor, no sensitive deficits, normal speech. Pupils are isocoric and reactive. Psych/Mental Status: A/Ox2 laboratory and microbiology Laboratory Tests 06/11/24 05:54 06/08/24 10:49 Test 06/11/24 05:54 Range/Units Serum Glucose 127 H 74-106 mg/dL Microbiology Date/Time Source Procedure Growth Status 05/30/24 22:30 Nose MRSA Screen - Final Complete 05/29/24 17:44 Blood Blood Culture - Final NO GROWTH AFTER 5 DAYS OF INCUBATION. Complete Labs and/or images reviewed: Labs reviewed by me, Image(s) reviewed by me Problem List/Assessment/Plan Problem List/Assessment/Plan Generalized weakness probably secondary to possible acute stroke History of cerebral palsy Likely Stroke CT head unremarkable Continue IV fluid Could not complete MRI as the patient could not lie still Dysphagia - new onset status with PEG tube placement Failure to thrive Started Clinimix per pharmacy 06/02 GI Consulted - PEG tube placement completed 06/07 Discontinued Clear ensure 240 mL q.6 hour starting 06/08 Jevity 1.2 50 cc an hour Sepsis secondary to Pneumonia, gram positive and Negative IV Ceftriaxone and IV azithro 05/30. Discontinued 05/31 Patient completed IV antibiotics course IV Zosyn 05/31 till 06/08 Continue IV doxy starting 05/31 MRSA nares pending Lactic unremarkable Mechanical fall without LOC Head CT unremarkable Microscopic hematuria Chronic Wilks catheter Mild Anemia, likely normocytic UA shows 2+ blood in 158 RBC Hypokalemia Hypomagnesemia Replenishing Superficial venous thrombosis Ultrasound completed, shows Superficial venous thrombi in the right cephalic and left cephalic and basilic veins. Warm Compresses and tablet Keflex 500 b.i.d. via G-tube Lovenox 40 mg sc daily Failed swallow eval thrice, status post G-tube placement. DIET : NPO, G-tube feeding Jevity 1.2 50 cc an hour ON accu checks Patient's POA, DC planning initiated with [facility]. 06/11 - Patient is medically cleared to be discharged. Discharged to home. Multiple hospice has denied patient at this point. Per POA, patient has no caregiver available at home and she can not receive the patient. Goals of care discussed with the patient, caregiver and (niece over the phone), over 30 minutes DNR Plan discussed with patient and the nurse in which all questions have been answered Case discussed with Dr. Joyce Plan discussed with: Patient, Other (POA michael) My Orders My Orders Orders - SANTIAGO TAVAREZ RESIDENT Procedure Category Date Status Time Baclofen Tablet PHA 06/10/24 In Process (Liorisal Tablet) 22:00 Discontinue Tele MIGUEL ANGEL 06/11/24 In Process 07:35 Transfer Orders XFER 06/11/24 Transmitted 07:35 Discharge DISCHARGE 06/11/24 Transmitted 16:18 Schedule For Dc MIGUEL ANGEL 06/11/24 In Process Clinic F/U 16:18 Dietary Evaluation Review Comments: 1. Continue NPO diet per PS[employer]CHIATRIC TECH, high-risk for aspiration 2. Currently on PN, awaiting PEG placement; suggest continuation of Clinimix 4.25/10 @ 83 ml/hr in the interim (provides 1020 kcal, meets 100% pro needs, 82% kcal needs) *may add IVLE 250 ml 20% 3x/wk to meet remainder of kcal needs 3. Once PEG tube in place and confirmed ready to use, recommend TF w/ Jevity 1.2; begin at 10 ml/hr and advance by 10 ml Q4 hrs or as tolerated to goal-rate of 50 ml/hr continuously *note: If bolus feeds desired at D/C, pt will require 5 cartons (237 ml/carton) daily 4. Monitor BMP/lytes and replete to WNL/PRN Expected Outcomes/Goals: Improved nutritional status, weight maintenance/gradual gain Date of Service: Jun 11, 2024 Billing Provider: MARY VU MD Common Visit Codes: 23099-[id number] INP/OBS CARE(HIGH) SANTIAGO TAVAREZ RESIDENT Jun 11, 2024 17:32 MARY VU MD Jun 11, 2024 23:47
--- NOTE | 2024-06-11 17:33 | DVHDSRES ---
Discharge Summary Date of Admission Resident Creating Document: SANTIAGO TAVAREZ RESIDENT May 29, 2024 at 20:46 Date of Discharge: Jun 11, 2024 Labs/Diagnostic Data: Laboratory Results Test 06/11/24 05:54 06/10/24 06:18 06/09/24 11:29 06/09/24 05:43 Sodium Level 137 mmol/L (136-145) Potassium Level 4.4 mmol/L (3.5-5.1) Chloride Level 98 mmol/L (98-107) Carbon Dioxide Level 31 mmol/L (20-31) Anion Gap 8 (5-15) Blood Urea Nitrogen 14 mg/dL (9-23) Creatinine 0.43 mg/dL (0.700-1.30) Glomerular Filtration Rate Calc 111 mL/min (>90) BUN/Creatinine Ratio 32.6 (10.0-20.0) Serum Glucose 127 mg/dL (74-106) Calcium Level 9.2 mg/dL (8.7-10.4) Estimated GFR () 248 mL/min Estimated GFR (Non- 205 mL/min Phosphorus Level 2.4 mg/dL (2.4-5.1) Magnesium Level 1.9 mg/dL (1.6-2.6) Albumin 3.5 g/dL (3.2-4.8) POC Glucose 125 mg/dl (70-106) Total Bilirubin 0.3 mg/dL (0.2-1.0) Aspartate Amino Transferase (AST) 18 U/L (13-40) Alanine Aminotransferase (ALT) 25 U/L (7-40) Alkaline Phosphatase 60 U/L (46-116) Total Protein 6.0 g/dL (5.7-8.2) Test 06/08/24 10:49 06/07/24 07:31 06/03/24 06:29 05/31/24 10:40 White Blood Count 10.0 10^3/uL (4.4-10.8) Red Blood Count 4.10 10^6/uL (4.5-5.90) Hemoglobin 12.9 g/dL (13.5-17.5) Hematocrit 38.5 % (41.0-53.0) Mean Corpuscular Volume 93.9 fL (80.0-100.0) Mean Corpuscular Hemoglobin 31.5 pg (28.0-32.0) Mean Corpuscular Hemoglobin Concent 33.5 g/dL (32.0-36.0) Red Cell Distribution Width 12.6 % (11.8-14.3) Platelet Count 190 10^3/uL (140-450) Mean Platelet Volume 9.6 fL (6.9-10.8) Neutrophils (%) (Auto) 64.3 % (37.0-80.0) Lymphocytes (%) (Auto) 18.0 % (10.0-50.0) Monocytes (%) (Auto) 14.0 % (0.0-12.0) Eosinophils (%) (Auto) 2.7 % (0.0-7.0) Basophils (%) (Auto) 1.0 % (0.0-2.0) Neutrophils # (Auto) 6.4 10 ^3/uL (1.6-8.6) Lymphocytes # (Auto) 1.8 10 ^3/uL (0.4-5.4) Monocytes # (Auto) 1.4 10 ^3/uL (0-1.3) Eosinophils # (Auto) 0.3 10 ^3/uL (0-0.8) Basophils # (Auto) 0.1 10 ^3/uL (0-0.2) Nucleated Red Blood Cells 0.1 % Platelet Estimate [place] Large Platelets Few Prothrombin Time 12.0 sec (9.3-11.8) Prothrombin Time INR 1.15 (0.9-1.15) Activated Partial Thromboplast Time 21.4 SEC (24.5-34.5) Triglycerides Level 103 mg/dL (< 150) Lactic Acid Level 1.3 mmol/L (0.4-2.0) Test 05/30/24 22:30 05/30/24 18:35 05/30/24 11:55 05/30/24 06:45 Influenza Type A Antigen Negative (Negative) Influenza Type B Antigen Negative (Negative) SARS-CoV-2 Antigen (Rapid) Negative (NEGATIVE) Erythrocyte Sedimentation Rate 12 mm/hr (0-20) C-Reactive Protein High Sensitivity 0.12 mg/dL (<1.0) Test 05/29/24 23:57 05/29/24 18:38 Hemoglobin A1c 5.4 % A1C (<5.7) Direct Bilirubin < 0.1 mg/dL (<0.3) B-Type Natriuretic Peptide 26.17 pg/mL (0-100) Cholesterol Level 174 mg/dL (< 200) LDL Cholesterol 120 mg/dL (< 100) HDL Cholesterol 41 mg/dL (40-59) Thyroid Stimulating Hormone (TSH) 3.77 uIU/mL (0.55-4.78) Urine Color Yellow (Yellow) Urine Clarity Clear (Clear) Urine pH 6.0 (5.0-9.0) Urine Specific [place] 1.029 (1.001-1.035) Urine Protein Trace (Negative) Urine Ketones Trace (Negative) Urine Blood 2+ /uL (Negative) Urine Nitrite Negative (Negative) Urine Bilirubin Negative (Negative) Urine Urobilinogen Normal mg/dL (Negative) Urine Leukocyte Esterase Negative /uL (Negative) Urine RBC 158 /hpf (0 - 3) Urine Microscopic WBC 2 /HPF (0-3) Urine Squamous Epithelial Cells Few /hpf (<5) Urine Bacteria None seen /hpf (None Seen) Urine Mucus Few (None Seen) Urine Glucose Normal mg/dL (Normal) Urine Opiates Screen Neg (NEGATIVE) Urine Fentanyl Screen Neg (NEGATIVE) Urine Barbiturates Screen Neg (NEGATIVE) Urine Phencyclidine Screen Neg (NEGATIVE) Urine Amphetamines Screen Neg (NEGATIVE) Urine Benzodiazepines Screen Neg (NEGATIVE) Urine Cocaine Screen Neg (NEGATIVE) Urine Cannabinoids Screen Neg (NEGATIVE) Other Laboratory Tests 06/11/24 05:54 06/08/24 10:49 Brief Hx & Hospital Course: VISHAL BATEMAN is a 74-year-old male with a PMH of cerebral palsy by and scoliosis presented to the accompanied by caregiver with the chief complaints of worsening of generalized weakness for past 2 weeks. Caregiver reported patient has been not eating, drinking for past 3 days and also usually patient can get himself up to chair and bedside commode med for past 2 weeks he is unable to transfer himself to wheelchair and found on the floor 2 times likely fall from bed. Caregiver denies fever, nausea, vomiting, flu-like symptoms, and other acute associated symptoms. Patient reported back pain himself. But denies any other complaint. PMH: Cerebral palsy, scoliosis PSH: Denies Family history: Reviewed, noncontributory Social history: Lives alone at home. Denies smoking, alcohol and other drug abuse Allergies: Sulfa allergies Home medications: Baclofen 10 mg During the hospitalization, CT head was completed which was unremarkable. Chest x-ray completed, showed Ill-defined right upper lung opacity may reflect developing pneumonia versus atelectasis. Patient was started on IV Zosyn and IV doxycycline to which was continued till 06/08. Swallow eval was completed, patient failed swallow eval. Given the likelihood of stroke, MRI was ordered which could not be completed as the patient could not lifestyle. Subsequently multiple swallow eval were failed umbilical 3 times. Patient was started on Clinimix. Initially patient refused PEG tube but upon further discussions he agreed with PEG tube placement GI was consulted. The tube was placed by Dr. Chang 06/07. And feedings were started 06/08 via PEG tube which the patient tolerated well. Left Upper extremity was mildly swollen and erythematous, upper extremity Doppler showed superficial thrombophlebitis, warm compresses NGT tube Keflex 500 b.i.d. started from 06/09 till 06/14. During his stay, patient's POA Brisa opted hospice and social media job titles were consulted, multiple hospitals were approached everyone denied given that the patient has already consumed hospice for some time in the past. intermediate facility was also considered based on the POAs request but he does not qualify at this time. Patient has multiple caregivers at home who are trained in the hospital by the nurse regarding tube feedings and precautions. 06/11-patient was clinically, vitally stable, hemodynamically stable. He was medically cleared to be discharged therefore patient has been discharged home. Patient has been discharged on bolus Jevity 5 times daily. Problem List/Assessment/Plan Generalized weakness probably secondary to possible acute stroke History of cerebral palsy Probable acute Stroke given the dysphagia and motor weakness Dysphagia - new onset status with PEG tube placement Failure to thrive Sepsis secondary to Pneumonia, gram positive and Negative Mechanical fall without LOC Microscopic hematuria Chronic Wilks catheter Mild Anemia, likely normocytic Hypokalemia Hypomagnesemia Superficial venous thrombosis Operations or Procedures ORDERING PHYSICIAN: SANTIAGO TAVAREZ RESIDENT PROCEDURE(s): BUDVT - Bi Lat Upper DVT REASON: BILATERAL UPPER ARM SWELLING, r/o dvt ORDER NUMBER(s): [id number], ACCESSION NUMBER(s): [id number] EXAM: US BI LAT UPPER DVT Clinical History: BILATERAL UPPER ARM SWELLING, r/o dvt Comparison: None Technique: Duplex Doppler evaluation of the deep venous systems of both upper extremities from the internal jugular to the ulnar veins including color Doppler and spectral/pulsed waveform analysis was performed. Findings: Normal compressibility and color Doppler flow is seen in the bilateral upper extremity veins including the internal jugular, subclavian, axillary, brachial, radial and ulnar veins. Superficial venous thrombi in the right cephalic and left cephalic and basilic veins. Impression: 1. No sonographic evidence for bilateral upper extremity DVT. 2. Superficial venous thrombi in the right cephalic and left cephalic and basilic veins. ATED BY: CINTIA FERREIRA DO DICTATED DATE/TIME: 06/10/241411 SIGNED BY: CINTIA FERREIRA DO SIGNED DATE/TIME: 06/10/241411 ORDERING PHYSICIAN: SANTIAGO TAVAREZ PROCEDURE(s): CXR1 - CHEST XRAY 1 VIEW REASON: gastric bubble ORDER NUMBER(s): [id number], ACCESSION NUMBER(s): [id number] EXAM: XY CHEST XRAY 1 VIEW Indication: pain Technique: Single frontal view of the chest was obtained Comparison: XY CHEST PORTABLE on DOS: 05/29/24 FINDINGS: Lines and Tubes: None Lungs: Ill-defined right upper lung consolidative opacity. Pleura: No effusion. No pneumothorax. Cardiomediastinal contours: Unremarkable Bones: No acute osseous abnormality. IMPRESSION: Ill-defined right upper lung opacity may reflect developing pneumonia versus atelectasis. ATED BY: ZACHARY MANNING MD DICTATED DATE/TIME: 05/30/24 1207 SIGNED BY: ZCAHARY MANNING MD SIGNED DATE/TIME: 05/30/24 1207 CC: ORDERING PHYSICIAN: DIMAS ASENCIO PROCEDURE(s): HWOCT - HEAD WITHOUT CONTRAST REASON: Mechanical fall ORDER NUMBER(s): [id number], ACCESSION NUMBER(s): [id number] EXAM: CT HEAD WITHOUT CONTRAST HISTORY: Mechanical fall COMPARISON: HEAD WITHOUT CONTRAST on DOS: 06/03/19, HEAD WITHOUT CONTRAST on DOS: 06/01/19 TECHNIQUE: Axial images were obtained and reformatted in coronal and sagittal planes. All CT scans at this medical facility are performed using dose modulation techniques as appropriate to a performed exam including the following: Automated exposure control was utilized; adjustment of the MA and/or KV according to patient size; and use of iterative reconstruction technique. CT Dose: CTDI volume is 58.87 mGy. Dose-length product is 1160.11 mGy*cm FINDINGS: Supratentorial Region: No evidence for large acute territorial ischemia. No intracranial hemorrhage is noted. Posterior Fossa: No acute abnormality. Brainstem: Unremarkable. Sellar/Suprasellar Region: Unremarkable. Ventricles, Cisterns, Sulci: Age-appropriate. Orbits: Unremarkable. Paranasal Sinuses: Mild ethmoid sinus mucosal thickening. A 2 cm mucous retention cyst noted in the right maxillary sinus. Mastoid Air Cells: Unremarkable. Vasculature: Unremarkable. Bones/Soft Tissues: No acute abnormality. Other: None. IMPRESSION: 1. No acute intracranial process. ATED BY: GINGER ENG MD DICTATED DATE/TIME: 05/30/24905 SIGNED BY: GINGER ENG MD SIGNED DATE/TIME: 05/30/24905 CC: ORDERING PHYSICIAN: DIMAS ASENCIO PROCEDURE(s): ECIDC - ECHO 2D MODE CARDIAC DOP REASON: ? chf ORDER NUMBER(s): [id number], ACCESSION NUMBER(s): [id number] APPROVED REPORT EXAM: Two-dimensional and M-mode echocardiogram with Doppler and color Doppler. Blood Pressure: 123/50 mmHg INDICATION Heart Failure RISK FACTORS Height: 5'5", Weight: 91 DIMENSIONS LVDd 4.0 (3.8-5.7cm) LA (2D) (1.9-4.0cm) Aortic Root (2.0-3.7cm) LVDs 3.0 (2.5-4.0cm) LA (MM) (1.9-4.0cm) Aortic Cusp Exc (1.5- 2.0cm) EF (%) 50.0 (55-70%) Rt. Atrium (1.9-4.0cm) Asc. Aorta cm Mitral Valve Mitral Mitral Stenosis E/A ratio 0.0 2D MVA cm2 Other Information Quality : Technically Limited Rhythm : Technically limited study due to body habitus and lying right side Conclusion VERY LIMITED STUDY NO VALVE ASSESSMENT LVEF 60% BY VISUAL ESTIMATE NORMAL RV FUNCTION LEFT ATRIUM ENLARGED MILD SIGNED BY: KAIN CERVANTES MD SIGNED DATE/TIME: 05/31/24 1484 CC: Condition at Discharge: Stable Final Diagnosis/Problems List Generalized weakness probably secondary to possible acute stroke History of cerebral palsy Probable acute Stroke given the dysphagia and motor weakness Dysphagia - new onset status with PEG tube placement Failure to thrive Sepsis secondary to Pneumonia, gram positive and Negative Mechanical fall without LOC Microscopic hematuria Chronic Wilks catheter Mild Anemia, likely normocytic Hypokalemia Hypomagnesemia Superficial venous thrombosis Discharge Disposition: Home Discharge Instruct/Medications Diet: See Comment Diet comment: Nothing per oral bolus feeds of Jevity 1.2 5 cartons per day every 5 hours while awake Activity: No Restrictions, As Tolerated Follow Up/Referral: Follow up with primary care physician within 7 days Follow up with the discharge clinic appointment within 14 days Medications: Per EMR Discharge Statement: "Patient was advised to return to the ER or call 911 if any headaches, dizziness, shortness of breath, chest pain, abdominal pain, bleeding, fevers, or worsening of medical condition. Patient was counseled about treatment plan, medications, possible side effects, patientverbalized understanding. All questions were answered to the best of my ability. This discharge took greater then 30 minutes in planning, reviewing documentation, counseling the patient, and discussing with other team members." ASSESSMENT ASSESSMENT Assessment Generalized weakness probably secondary to possible acute stroke Dysphagia - new onset status with PEG tube placement Sepsis secondary to pneumonia, Gram-positive and negative History of cerebral palsy Probable Stroke Failure to thrive Date of Service: Jun 11, 2024 Billing Provider: MARY VU MD Common Visit Codes: 90754-COV/OBS DISCH DAY >30min SANTIAGO TAVAREZ Jun 11, 2024 17:33 MARY VU MD Jun 14, 2024 09:20
[2024-06-11] MEDS: IPRATROPIUM BROM 0.5 MG/2.5ML INH SOL NEB SCH (18:31)
[2024-06-11] MEDS: ALBUTEROL SULF 2.5 MG/0.5ML(0.5%) NEB SOLN NEB SCH (18:31)
[2024-06-12] VITALS (13 sets, daily range): BP systolic 118–140; BP diastolic 47–78; PULSE 74–110; RESP 16–20; TEMP 98.2–101.3; O2SAT 92–100
[2024-06-12] MEDS: ceFAZolin 1GM/50ML 50 ML IV ONE (13:28)
--- NOTE | 2024-06-12 17:07 | DVHPNRES ---
Progress Note Date Seen: Jun 12, 2024 Resident Creating Document: SANITAGO TAVAREZ RESIDENT Medical Necessity Reason Pt with a Central, PICC or Fol: Yes The following are medically ne: Wilks Catheter Subjective Review of Systems VISHAL BATEMAN is a 74-year-old male with a PMH of cerebral palsy by and scoliosis presented to the accompanied by caregiver with the chief complaints of worsening of generalized weakness for past 2 weeks. Caregiver reported patient has been not eating, drinking for past 3 days and also usually patient can get himself up to chair and bedside commode med for past 2 weeks he is unable to transfer himself to wheelchair and found on the floor 2 times likely fall from bed. Caregiver denies fever, nausea, vomiting, flu-like symptoms, and other acute associated symptoms. Patient reported back pain himself. But denies any other complaint. PMH: Cerebral palsy, scoliosis PSH: Denies Family history: Reviewed, noncontributory Social history: Lives alone at home. Denies smoking, alcohol and other drug abuse Allergies: Sulfa allergies Home medications: Baclofen 10 mg 06/01 - Patient seen and examined at the bedside. CT head unremarkable. Failed Swallow eval. 05/31 - patient seen and examined at the bedside. Repeat swallow eval pending. White cell count increased to 14, serum bicarb going down, anion gap increased. Lactic acid within normal limit. Antibiotics broadened. Failed swallow eval twice now. 06/01-Dr. Joyce: HA [facility] wants to proceed with hospice. Patient was prior on hospice at home but was not getting adequate care. We will consult social to help with hospice and discharge planning. We will get MRI since dysphagia is new for the patient. 06/02-patient seen and examined at the bedside. No acute distress. Started Clinimix. 06/03 - . Patient seen and examined at the bedside. Patient refused PEG tube placement. Agrees with parenteral nutrition at this time. 06/04 - patient seen and examined at the bedside, POA came to see the patient, patient agrees for PEG tube placement. GI consulted. 06/05- patient seen and examined at bedside. Potassium and magnesium replenised. GI scheduled PEG tube placement on 06/07 06/06 - patient seen and examined at the bedside. Electrolytes replenish. NPO starting midnight. 06/07 - patient seen and examined at the bedside. POA Lelia at bedside. PEG tube placement today. Residual to be checked in a.m.. 06/08 - status post PEG tube placement. Peg tube site is dressed/clean/intact. Feedings to be started later today. Discontinued IV Zosyn. 06/09 - seen and examined at the bedside. Ultrasound upper extremity completed, shows superficial thrombophlebitis. Warm compresses and GT tube Keflex 500 b.i.d. started. 06/10 - patient seen and examined at the bedside. Patient is medically cleared to be discharged. Discharged to home. Multiple hospice has denied patient at this point. Per POA, patient has no caregiver available at home and she can not receive the patient. 06/12 - patient is seen and examined at the bedside. No acute needs or complaint. Objective vital signs Vital Sign Date Time Temp Pulse Resp B/P (MAP) Pulse Ox O2 Delivery O2 Flow Rate FiO2 06/12/24 13:16 99.2 80 17 123/47 (72) 100 99.2 06/12/24 12:21 Nasal Cannula 2.0 06/12/24 12:21 28 Total Intake and Output 06/11/24 06/11/24 06/12/24 15:00 23:00 07:00 Intake Total 240 ml 500 ml Output Total 500 ml 100 ml Balance -260 ml 400 ml medications Current Medications Medications Dose Ordered Sig/Elian Route Start Time Stop Time Status Last Admin Dose Admin Docusate Sodium 100 mg BIDPRN PRN PO 05/29/24 21:00 Acetaminophen 650 mg Q6HP PRN PO 05/29/24 21:00 06/11/24 19:26 650 MG Hydralazine HCl 10 mg Q6HP PRN IV 06/05/24 07:00 06/09/24 01:15 10 MG Morphine Sulfate 1 mg Q6HP PRN IV 06/08/24 14:30 06/10/24 04:42 1 MG Enteral Nutritional Formula 1,000 ml 50ML/HR GT 06/10/24 12:15 06/10/24 16:00 1,000 ML Cephalexin 500 mg BID PO 06/10/24 22:00 06/12/24 10:32 500 MG Baclofen 10 mg BID PO 06/10/24 22:00 06/12/24 10:32 10 MG Albuterol 2.5 mg Q6HWA NEB 06/11/24 18:00 06/12/24 12:21 2.5 MG Ipratropium Sawyer 0.5 mg Q6HWA NEB 06/11/24 18:00 06/12/24 12:21 0.5 MG Examination Elderly male patient lying in bed, in no acute distress, General: Cachectic-looking, afebrile, palor, mucosae are moist Cardiovascular: Regular S1 and S2. No murmurs, gallops or rubs. No JVD elevation. No pedal edema Respiratory: Normal B/L air entry on room air. Clear lung sounds on auscultation Abdomen: Soft, nontender, nondistended, normoactive bowel sounds, no rebound tenderness, no organomegaly, no masses. Wilks seen. Peg tube seen, dressing dry clean and intact Genitourinary: Deferred MSK/skin: Mobilizes 4 limbs. Skin is dry and warm Neurological: No motor, no sensitive deficits, normal speech. Pupils are isocoric and reactive. Psych/Mental Status: A/Ox2 laboratory and microbiology Laboratory Tests 06/11/24 05:54 06/08/24 10:49 Test 06/11/24 05:54 Range/Units Serum Glucose 127 H 74-106 mg/dL Microbiology Date/Time Source Procedure Growth Status 05/30/24 22:30 Nose MRSA Screen - Final Complete 05/29/24 17:44 Blood Blood Culture - Final NO GROWTH AFTER 5 DAYS OF INCUBATION. Complete Labs and/or images reviewed: Labs reviewed by me, Image(s) reviewed by me Problem List/Assessment/Plan Problem List/Assessment/Plan Generalized weakness probably secondary to possible acute stroke History of cerebral palsy Likely Stroke CT head unremarkable Continue IV fluid Could not complete MRI as the patient could not lie still Dysphagia - new onset status with PEG tube placement Failure to thrive Started Clinimix per pharmacy 06/02 GI Consulted - PEG tube placement completed 06/07 Discontinued Clear ensure 240 mL q.6 hour starting 06/08 Jevity 1.2 50 cc an hour Sepsis secondary to Pneumonia, gram positive and Negative IV Ceftriaxone and IV azithro 05/30. Discontinued 05/31 Patient completed IV antibiotics course IV Zosyn 05/31 till 06/08 Completed IV doxy 05/31 till 06/10 MRSA nares pending Lactic unremarkable Mechanical fall without LOC Head CT unremarkable Microscopic hematuria Chronic Wilks catheter Mild Anemia, likely normocytic UA shows 2+ blood in 158 RBC Hypokalemia Hypomagnesemia Replenishing Superficial venous thrombosis Ultrasound completed, shows Superficial venous thrombi in the right cephalic and left cephalic and basilic veins. Warm Compresses and tablet Keflex 500 b.i.d. via G-tube Lovenox 40 mg sc daily Failed swallow eval thrice, status post G-tube placement. DIET : NPO, G-tube feeding Jevity 1.2 50 cc an hour ON accu checks 06/11 - Patient is medically cleared to be discharged. Discharged to home. Multiple hospice has denied patient at this point. Goals of care discussed with the patient, caregiver and (niece over the phone), over 30 minutes DNR Plan discussed with patient and the nurse in which all questions have been answered Case discussed with Dr. Joyce Plan discussed with: Patient My Orders My Orders Orders - SANTIAGO TAVAREZ Procedure Category Date Status Time Albuterol Medneb PHA 06/11/24 In Process (Ventolin Medneb) 18:00 Ipratropium Medneb PHA 06/11/24 In Process (Atrovent Medneb) 18:00 Dietary Evaluation Review Comments: 1. Continue NPO diet per [employer], high-risk for aspiration 2. Currently on PN, awaiting PEG placement; suggest continuation of Clinimix 4.25/10 @ 83 ml/hr in the interim (provides 1020 kcal, meets 100% pro needs, 82% kcal needs) *may add IVLE 250 ml 20% 3x/wk to meet remainder of kcal needs 3. Once PEG tube in place and confirmed ready to use, recommend TF w/ Jevity 1.2; begin at 10 ml/hr and advance by 10 ml Q4 hrs or as tolerated to goal-rate of 50 ml/hr continuously *note: If bolus feeds desired at D/C, pt will require 5 cartons (237 ml/carton) daily 4. Monitor BMP/lytes and replete to WNL/PRN Expected Outcomes/Goals: Improved nutritional status, weight maintenance/gradual gain SANTIAGO TAVAREZ Jun 12, 2024 17:06
--- NOTE | 2024-06-12 17:52 | DVHPN2 ---
Progress Note Date Seen: Jun 12, 2024 Resident Creating Document: CATHERINE TINSLEY RESIDENT Medical Necessity Reason Pt with a Central, PICC or Fol: Yes The following are medically ne: Wilks Catheter Subjective Review of Systems No new complaints. Patient tolerating diet via G-tube. Objective vital signs Vital Sign Date Time Temp Pulse Resp B/P (MAP) Pulse Ox O2 Delivery O2 Flow Rate FiO2 06/12/24 13:16 99.2 80 17 123/47 (72) 100 99.2 06/12/24 12:21 Nasal Cannula 2.0 06/12/24 12:21 28 Total Intake and Output 06/11/24 06/11/24 06/12/24 15:00 23:00 07:00 Intake Total 240 ml 500 ml Output Total 500 ml 100 ml Balance -260 ml 400 ml medications Current Medications Medications Dose Ordered Sig/Elian Route Start Time Stop Time Status Last Admin Dose Admin Docusate Sodium 100 mg BIDPRN PRN PO 05/29/24 21:00 Acetaminophen 650 mg Q6HP PRN PO 05/29/24 21:00 06/11/24 19:26 650 MG Hydralazine HCl 10 mg Q6HP PRN IV 06/05/24 07:00 06/09/24 01:15 10 MG Morphine Sulfate 1 mg Q6HP PRN IV 06/08/24 14:30 06/10/24 04:42 1 MG Enteral Nutritional Formula 1,000 ml 50ML/HR GT 06/10/24 12:15 06/10/24 16:00 1,000 ML Cephalexin 500 mg BID PO 06/10/24 22:00 06/12/24 10:32 500 MG Baclofen 10 mg BID PO 06/10/24 22:00 06/12/24 10:32 10 MG Albuterol 2.5 mg Q6HWA NEB 06/11/24 18:00 06/12/24 12:21 2.5 MG Ipratropium [place] 0.5 mg Q6HWA NEB 06/11/24 18:00 06/12/24 12:21 0.5 MG Examination Cachectic male, afebrile. Not in acute distress. Cardiovascular was regular S1, no murmurs Lungs clear. No crackles. Cachectic contacted upper and lower extremity Peg tube site is clean, no leakage or redness of skin laboratory and microbiology Laboratory Tests 06/11/24 05:54 06/08/24 10:49 Test 06/11/24 05:54 Range/Units Serum Glucose 127 H 74-106 mg/dL Microbiology Date/Time Source Procedure Growth Status 05/30/24 22:30 Nose MRSA Screen - Final Complete 05/29/24 17:44 Blood Blood Culture - Final NO GROWTH AFTER 5 DAYS OF INCUBATION. Complete Problem List/Assessment/Plan Problem List/Assessment/Plan Failure to thrive Status post gastrostomy tube placement Dysphagia Fails swallow evaluation Possible stroke Cerebral palsy BMI 14.5 kg/M2 Plan/recommendation Dr Chang Status post PEG tube insertion. Tolerating diet. Clean site. No leakage. No erythema over G-tube insertion. Continue feeding as toleration. Continue supportive care Feeding via G-tube Family waiting for hospice arrangement. Continue supportive care Discharge planning as per primary team we will sign off. please reconsult if needed Plan discussed with: Other (RN) Dietary Evaluation Review Comments: 1. Continue NPO diet per [employer], high-risk for aspiration 2. Currently on PN, awaiting PEG placement; suggest continuation of Clinimix 4.25/10 @ 83 ml/hr in the interim (provides 1020 kcal, meets 100% pro needs, 82% kcal needs) *may add IVLE 250 ml 20% 3x/wk to meet remainder of kcal needs 3. Once PEG tube in place and confirmed ready to use, recommend TF w/ Jevity 1.2; begin at 10 ml/hr and advance by 10 ml Q4 hrs or as tolerated to goal-rate of 50 ml/hr continuously *note: If bolus feeds desired at D/C, pt will require 5 cartons (237 ml/carton) daily 4. Monitor BMP/lytes and replete to WNL/PRN Expected Outcomes/Goals: Improved nutritional status, weight maintenance/gradual gain CATHERINE TINSLEY RESIDENT Jun 12, 2024 17:52
[2024-06-13] VITALS (15 sets, daily range): BP systolic 103–129; BP diastolic 56–76; PULSE 79–117; RESP 14–20; TEMP 98–101.4; O2SAT 91–100
[2024-06-13] MEDS ORDERED: AMOXICILLIN/CLAV 400MG/5ML SUSP 50ML GT ONE (12:00)
[2024-06-13] MEDS: BACLOFEN 10 MG TAB GT SCH (12:22)
[2024-06-13] MEDS ORDERED: AMOXICILLIN/CLAV 400MG/5ML SUSP 50ML GT SCH (14:30)
[2024-06-13] MEDS: AMOXICILLIN/CLAV 200MG/5ML SUSP 50ML GT SCH (15:26)
--- NOTE | 2024-06-13 17:51 | DVHPNRES ---
Progress Note Date Seen: Jun 13, 2024 Resident Creating Document: SANTIAGO TAVAREZ RESIDENT Medical Necessity Reason Pt with a Central, PICC or Fol: Yes The following are medically ne: Wilks Catheter Subjective Review of Systems VISHAL BATEMAN is a 74-year-old male with a PMH of cerebral palsy by and scoliosis presented to the accompanied by caregiver with the chief complaints of worsening of generalized weakness for past 2 weeks. Caregiver reported patient has been not eating, drinking for past 3 days and also usually patient can get himself up to chair and bedside commode med for past 2 weeks he is unable to transfer himself to wheelchair and found on the floor 2 times likely fall from bed. Caregiver denies fever, nausea, vomiting, flu-like symptoms, and other acute associated symptoms. Patient reported back pain himself. But denies any other complaint. PMH: Cerebral palsy, scoliosis PSH: Denies Family history: Reviewed, noncontributory Social history: Lives alone at home. Denies smoking, alcohol and other drug abuse Allergies: Sulfa allergies Home medications: Baclofen 10 mg 06/01 - Patient seen and examined at the bedside. CT head unremarkable. Failed Swallow eval. 05/31 - patient seen and examined at the bedside. Repeat swallow eval pending. White cell count increased to 14, serum bicarb going down, anion gap increased. Lactic acid within normal limit. Antibiotics broadened. Failed swallow eval twice now. 06/01-Dr. Joyce: [facility] wants to proceed with hospice. Patient was prior on hospice at home but was not getting adequate care. We will consult social to help with hospice and discharge planning. We will get MRI since dysphagia is new for the patient. 06/02-patient seen and examined at the bedside. No acute distress. Started Clinimix. 06/03 - . Patient seen and examined at the bedside. Patient refused PEG tube placement. Agrees with parenteral nutrition at this time. 06/04 - patient seen and examined at the bedside, POA came to see the patient, patient agrees for PEG tube placement. GI consulted. 06/05- patient seen and examined at bedside. Potassium and magnesium replenised. GI scheduled PEG tube placement on 06/07 06/06 - patient seen and examined at the bedside. Electrolytes replenish. NPO starting midnight. 06/07 - patient seen and examined at the bedside. POA Lelia at bedside. PEG tube placement today. Residual to be checked in a.m.. 06/08 - status post PEG tube placement. Peg tube site is dressed/clean/intact. Feedings to be started later today. Discontinued IV Zosyn. 06/09 - seen and examined at the bedside. Ultrasound upper extremity completed, shows superficial thrombophlebitis. Warm compresses and GT tube Keflex 500 b.i.d. started. 06/10 - patient seen and examined at the bedside. Patient is medically cleared to be discharged. Discharged to home. Multiple hospice has denied patient at this point. Per POA, patient has no caregiver available at home and she can not receive the patient. 06/12 - patient is seen and examined at the bedside. No acute needs or complaint. 06/13-patient seen and examined at the bedside. No acute needs. Denies fevers/chills/cough/abdominal pain or any symptom. Discharge medication: Keflex 500 b.i.d., switch to amoxicillin 800 via G-tube b.i.d. for the next 7 days. We will continue to give discharge medication as the patient is currently in this facility. Objective vital signs Vital Sign Date Time Temp Pulse Resp B/P (MAP) Pulse Ox O2 Delivery O2 Flow Rate FiO2 06/13/24 16:24 101.4 114 19 117/67 (84) 94 101.4 06/13/24 13:41 Room Air 0.0 06/13/24 13:41 21 Total Intake and Output 06/12/24 06/12/24 06/13/24 15:00 23:00 07:00 Intake Total 240 ml 240 ml Output Total 550 ml 150 ml Balance 240 ml -310 ml -150 ml medications Current Medications Medications Dose Ordered Sig/Elian Route Start Time Stop Time Status Last Admin Dose Admin Docusate Sodium 100 mg BIDPRN PRN PO 05/29/24 21:00 Acetaminophen 650 mg Q6HP PRN PO 05/29/24 21:00 06/13/24 03:03 650 MG Hydralazine HCl 10 mg Q6HP PRN IV 06/05/24 07:00 06/09/24 01:15 10 MG Morphine Sulfate 1 mg Q6HP PRN IV 06/08/24 14:30 06/10/24 04:42 1 MG Enteral Nutritional Formula 1,000 ml 50ML/HR GT 06/10/24 12:15 06/12/24 19:02 1,000 ML Albuterol 2.[address] [facility] 06/11/24 18:00 06/13/24 13:41 2.5 MG Ipratropium [place] 0.[address] [facility] 06/11/24 18:00 06/13/24 13:41 0.5 MG Baclofen 10 mg BID GT 06/13/24 11:00 06/13/24 12:22 10 MG Amoxicillin/ Clavulanate Potassium 800 mg BID GT 06/13/24 15:00 06/13/24 15:26 800 MG Examination Elderly male patient lying in bed, in no acute distress, General: Cachectic-looking, afebrile, palor, mucosae are moist Cardiovascular: Regular S1 and S2. No murmurs, gallops or rubs. No JVD elevation. No pedal edema Respiratory: Normal B/L air entry on room air. Clear lung sounds on auscultation Abdomen: Soft, nontender, nondistended, normoactive bowel sounds, no rebound tenderness, no organomegaly, no masses. Wilks seen. Peg tube seen, dressing dry clean and intact Genitourinary: Deferred MSK/skin: Mobilizes 4 limbs. Skin is dry and warm Neurological: No motor, no sensitive deficits, normal speech. Pupils are isocoric and reactive. Psych/Mental Status: A/Ox2 laboratory and microbiology Laboratory Tests 06/11/24 05:54 06/08/24 10:49 Test 06/11/24 05:54 Range/Units Serum Glucose 127 H 74-106 mg/dL Microbiology Date/Time Source Procedure Growth Status 05/30/24 22:30 Nose MRSA Screen - Final Complete 05/29/24 17:44 Blood Blood Culture - Final NO GROWTH AFTER 5 DAYS OF INCUBATION. Complete Labs and/or images reviewed: Labs reviewed by me, Image(s) reviewed by me Problem List/Assessment/Plan Problem List/Assessment/Plan Generalized weakness probably secondary to possible acute stroke History of cerebral palsy Likely Stroke CT head unremarkable Continue IV fluid Could not complete MRI as the patient could not lie still Dysphagia - new onset status with PEG tube placement Failure to thrive Started Clinimix per pharmacy 06/02 GI Consulted - PEG tube placement completed 06/07 Discontinued Clear ensure 240 mL q.6 hour starting 06/08 Jevity 1.2 50 cc an hour Sepsis secondary to Pneumonia, gram positive and Negative IV Ceftriaxone and IV azithro 05/30. Discontinued 05/31 Patient completed IV antibiotics course IV Zosyn 05/31 till 06/08 Completed IV doxy 05/31 till 06/10 MRSA nares pending Lactic unremarkable Mechanical fall without LOC Head CT unremarkable Microscopic hematuria Chronic Wilks catheter Mild Anemia, likely normocytic UA shows 2+ blood in 158 RBC Hypokalemia Hypomagnesemia Replenishing Superficial venous thrombosis Ultrasound completed, shows Superficial venous thrombi in the right cephalic and left cephalic and basilic veins. Warm Compresses and tablet Keflex 500 b.i.d. via G-tube Lovenox 40 mg sc daily Failed swallow eval thrice, status post G-tube placement. DIET : NPO, G-tube feeding Jevity 1.2 50 cc an hour ON accu checks 06/11 - Patient is medically cleared to be discharged. Discharged to home. Multiple hospice has denied patient at this point. Goals of care discussed with the patient, caregiver and (niece over the phone), over 30 minutes DNR Plan discussed with patient and the nurse in which all questions have been answered Case discussed with Dr. Joyce Plan discussed with: Patient My Orders My Orders Orders - SANTIAGO TAVAREZ RESIDENT Procedure Category Date Status Time Baclofen Tablet PHA 06/13/24 In Process (Liorisal Tablet) 11:00 Blood Culture ADARSH 06/13/24 Logged 11:46 Urinalysis LAB 06/13/24 Logged 11:46 Amoxicillin/Clavulanate PHA 06/13/24 In Process Suspen (Augmenti 15:00 Dietary Evaluation Review Comments: 1. Continue NPO diet per [employer], high-risk for aspiration 2. Currently on PN, awaiting PEG placement; suggest continuation of Clinimix 4.25/10 @ 83 ml/hr in the interim (provides 1020 kcal, meets 100% pro needs, 82% kcal needs) *may add IVLE 250 ml 20% 3x/wk to meet remainder of kcal needs 3. Once PEG tube in place and confirmed ready to use, recommend TF w/ Jevity 1.2; begin at 10 ml/hr and advance by 10 ml Q4 hrs or as tolerated to goal-rate of 50 ml/hr continuously *note: If bolus feeds desired at D/C, pt will require 5 cartons (237 ml/carton) daily 4. Monitor BMP/lytes and replete to WNL/PRN Expected Outcomes/Goals: Improved nutritional status, weight maintenance/gradual gain SANTIAGO TAVAREZ RESIDENT Jun 13, 2024 17:51
[2024-06-13] MEDS ORDERED: AUG875T GT (17:52)
[2024-06-13] MEDS ORDERED: ACETAMINOPHEN 650 mg PER 20.3 mL UD GT PRN (18:45)
[2024-06-14] VITALS (16 sets, daily range): BP systolic 126–150; BP diastolic 58–69; PULSE 71–93; RESP 17–20; TEMP 97.2–99.2; O2SAT 97–100
[2024-06-14 05:41] LABS: Urine Amorphous Crystal FEW /hpf (None Seen); Urine Bacteria FEW /hpf (None Seen); Urine Blood 2+ /uL (Negative); Urine Clarity Turbid (Clear); Urine Color Yellow (Yellow); Urine Mucus FEW (None Seen); Urine Protein, UAD 1+ (Negative); Urine Specific Gravity 1.017 (1.001-1.035); Urine Squamous Epithelial Cell None Seen /hpf (<5); Urine Urobilinogen Normal (Negative); Urine WBC 4 /HPF (0-3)
[2024-06-14] MEDS ORDERED: ATOR40TA52 PO (11:36)
[2024-06-14] MEDS ORDERED: ASPI-498 GT (11:36)
[2024-06-14] MEDS: ACETAMINOPHEN 650 mg PER 20.3 mL UD GT SCH (12:00)
[2024-06-14] MEDS: ASPirin 81 mg TAB GT ONE (12:08)
--- NOTE | 2024-06-14 17:38 | DVHPNRES ---
Progress Note Date Seen: Jun 14, 2024 Resident Creating Document: SANTIAGO TAVAREZ RESIDENT Medical Necessity Reason Pt with a Central, PICC or Fol: Yes The following are medically ne: Wilks Catheter Subjective Review of Systems VISHAL BATEMAN is a 74-year-old male with a PMH of cerebral palsy by and scoliosis presented to the accompanied by caregiver with the chief complaints of worsening of generalized weakness for past 2 weeks. Caregiver reported patient has been not eating, drinking for past 3 days and also usually patient can get himself up to chair and bedside commode med for past 2 weeks he is unable to transfer himself to wheelchair and found on the floor 2 times likely fall from bed. Caregiver denies fever, nausea, vomiting, flu-like symptoms, and other acute associated symptoms. Patient reported back pain himself. But denies any other complaint. PMH: Cerebral palsy, scoliosis PSH: Denies Family history: Reviewed, noncontributory Social history: Lives alone at home. Denies smoking, alcohol and other drug abuse Allergies: Sulfa allergies Home medications: Baclofen 10 mg 06/01 - Patient seen and examined at the bedside. CT head unremarkable. Failed Swallow eval. 05/31 - patient seen and examined at the bedside. Repeat swallow eval pending. White cell count increased to 14, serum bicarb going down, anion gap increased. Lactic acid within normal limit. Antibiotics broadened. Failed swallow eval twice now. 06/01-Dr. Joyce: [facility] wants to proceed with hospice. Patient was prior on hospice at home but was not getting adequate care. We will consult social to help with hospice and discharge planning. We will get MRI since dysphagia is new for the patient. 06/02-patient seen and examined at the bedside. No acute distress. Started Clinimix. 06/03 - . Patient seen and examined at the bedside. Patient refused PEG tube placement. Agrees with parenteral nutrition at this time. 06/04 - patient seen and examined at the bedside, POA came to see the patient, patient agrees for PEG tube placement. GI consulted. 06/05- patient seen and examined at bedside. Potassium and magnesium replenised. GI scheduled PEG tube placement on 06/07 06/06 - patient seen and examined at the bedside. Electrolytes replenish. NPO starting midnight. 06/07 - patient seen and examined at the bedside. POA Lelia at bedside. PEG tube placement today. Residual to be checked in a.m.. 06/08 - status post PEG tube placement. Peg tube site is dressed/clean/intact. Feedings to be started later today. Discontinued IV Zosyn. 06/09 - seen and examined at the bedside. Ultrasound upper extremity completed, shows superficial thrombophlebitis. Warm compresses and GT tube Keflex 500 b.i.d. started. 06/10 - patient seen and examined at the bedside. Patient is medically cleared to be discharged. Discharged to home. Multiple hospice has denied patient at this point. Per POA, patient has no caregiver available at home and she can not receive the patient. 06/12 - patient is seen and examined at the bedside. No acute needs or complaint. 06/13-patient seen and examined at the bedside. No acute needs. Denies fevers/chills/cough/abdominal pain or any symptom. Discharge medication: Keflex 500 b.i.d., switch to amoxicillin 800 via G-tube b.i.d. for the next 7 days. We will continue to give discharge medication as the patient is currently in this facility. 06/14 - patient seen and examined at the bedside. Tylenol scheduled with G-tube. Objective vital signs Vital Sign Date Time Temp Pulse Resp B/P (MAP) Pulse Ox O2 Delivery O2 Flow Rate FiO2 06/14/24 17:00 97.8 72 17 150/69 (96) 99 97.8 06/14/24 14:30 21 06/14/24 10:00 Nasal Cannula 2.0 Total Intake and Output 06/13/24 06/13/24 06/14/24 15:00 23:00 07:00 Intake Total 240 ml 240 ml Output Total 700 ml 350 ml Balance 240 ml -460 ml -350 ml medications Current Medications Medications Dose Ordered Sig/Elian Route Start Time Stop Time Status Last Admin Dose Admin Docusate Sodium 100 mg BIDPRN PRN PO 05/29/24 21:00 Hydralazine HCl 10 mg Q6HP PRN IV 06/05/24 07:00 06/09/24 01:15 10 MG Morphine Sulfate 1 mg Q6HP PRN IV 06/08/24 14:30 06/10/24 04:42 1 MG Enteral Nutritional Formula 1,000 ml 50ML/HR GT 06/10/24 12:15 06/12/24 19:02 1,000 ML Albuterol 2.5 mg Q6HWA [facility] 06/11/24 18:00 06/14/24 11:20 2.5 MG Ipratropium [place] 0.5 mg Q6HWA [facility] 06/11/24 18:00 06/14/24 11:20 0.5 MG Baclofen 10 mg BID GT 06/13/24 11:00 06/14/24 10:43 10 MG Amoxicillin/ Clavulanate Potassium 800 mg BID GT 06/13/24 15:00 06/14/24 10:43 800 MG Acetaminophen 650 mg Q6HP GT 06/14/24 07:45 06/14/24 12:00 650 MG Aspirin 81 mg DAILY GT 06/15/24 10:00 Atorvastatin Calcium 40 mg HS GT 06/14/24 22:00 Examination Elderly male patient lying in bed, in no acute distress, General: Cachectic-looking, afebrile, palor, mucosae are moist Cardiovascular: Regular S1 and S2. No murmurs, gallops or rubs. No JVD elevation. No pedal edema Respiratory: Normal B/L air entry on room air. Clear lung sounds on auscultation Abdomen: Soft, nontender, nondistended, normoactive bowel sounds, no rebound tenderness, no organomegaly, no masses. Wilks seen. Peg tube seen, dressing dry clean and intact Genitourinary: Deferred MSK/skin: Mobilizes 4 limbs. Skin is dry and warm Neurological: No motor, no sensitive deficits, normal speech. Pupils are isocoric and reactive. Psych/Mental Status: A/Ox2 laboratory and microbiology Laboratory Tests 06/11/24 05:54 06/08/24 10:49 Test 06/11/24 05:54 Range/Units Serum Glucose 127 H 74-106 mg/dL Microbiology Date/Time Source Procedure Growth Status 05/30/24 22:30 Nose MRSA Screen - Final Complete 05/29/24 17:44 Blood Blood Culture - Final NO GROWTH AFTER 5 DAYS OF INCUBATION. Complete Labs and/or images reviewed: Labs reviewed by me, Image(s) reviewed by me Problem List/Assessment/Plan Problem List/Assessment/Plan Generalized weakness probably secondary to possible acute stroke History of cerebral palsy Likely Stroke CT head unremarkable Continue IV fluid Could not complete MRI as the patient could not lie still Aspirin 81 mg daily and atorvastatin 40 mg HS. Dysphagia - new onset status with PEG tube placement Failure to thrive Started Clinimix per pharmacy 06/02 GI Consulted - PEG tube placement completed 06/07 Discontinued Clear ensure 240 mL q.6 hour starting 06/08 Jevity 1.2 50 cc an hour Sepsis secondary to Pneumonia, gram positive and Negative IV Ceftriaxone and IV azithro 05/30. Discontinued 05/31 Patient completed IV antibiotics course IV Zosyn 05/31 till 06/08 Completed IV doxy 05/31 till 06/10 MRSA nares pending Lactic unremarkable Mechanical fall without LOC Head CT unremarkable Microscopic hematuria Chronic Wilks catheter Mild Anemia, likely normocytic UA shows 2+ blood in 158 RBC Hypokalemia Hypomagnesemia Replenishing Superficial venous thrombosis Ultrasound completed, shows Superficial venous thrombi in the right cephalic and left cephalic and basilic veins. Warm Compresses and tablet Keflex 500 b.i.d. via G-tube Lovenox 40 mg sc daily Failed swallow eval thrice, status post G-tube placement. DIET : NPO, G-tube feeding Jevity 1.2 50 cc an hour ON accu checks 06/14-Patient's cousin at bedside, detailed discussion regarding hospital stay, prognosis and discharge planning was convened by me and Dr. Joyce for more than 30 minutes. Express concerns that patient might develop secondary infections during the stay. Risk and benefits discussed. 06/11 - Patient is medically cleared to be discharged. Discharged to home. Multiple hospice has denied patient at this point. Goals of care discussed with the patient, caregiver and (niece over the phone), over 30 minutes DNR Plan discussed with patient and the nurse in which all questions have been answered Case discussed with Dr. Joyce Plan discussed with: Patient, Other (Nephew) My Orders My Orders Orders - SANTIAGO TAVAREZ RESIDENT Procedure Category Date Status Time Acetaminophen PHA 06/14/24 In Process Solution Oral 07:45 Aspirin Tablet PHA 06/15/24 In Process 10:00 Atorvastatin (Lipitor) PHA 06/14/24 In Process 22:00 Dietary Evaluation Review Comments: 1. Continue NPO diet per [employer], high-risk for aspiration 2. Currently on PN, awaiting PEG placement; suggest continuation of Clinimix 4.25/10 @ 83 ml/hr in the interim (provides 1020 kcal, meets 100% pro needs, 82% kcal needs) *may add IVLE 250 ml 20% 3x/wk to meet remainder of kcal needs 3. Once PEG tube in place and confirmed ready to use, recommend TF w/ Jevity 1.2; begin at 10 ml/hr and advance by 10 ml Q4 hrs or as tolerated to goal-rate of 50 ml/hr continuously *note: If bolus feeds desired at D/C, pt will require 5 cartons (237 ml/carton) daily 4. Monitor BMP/lytes and replete to WNL/PRN Expected Outcomes/Goals: Improved nutritional status, weight maintenance/gradual gain SANTIAGO TAVAREZ RESIDENT Jun 14, 2024 17:38
[2024-06-14] MEDS: ATORVASTATIN 20 MG TAB GT SCH (22:47)
[2024-06-15] VITALS (11 sets, daily range): BP systolic 112–155; BP diastolic 57–75; PULSE 69–90; RESP 16–18; TEMP 97.5–98.4; O2SAT 93–100
[2024-06-15] MEDS: ASPirin 81 mg TAB GT SCH (11:18)
--- NOTE | 2024-06-15 14:14 | DVHPNRES ---
Progress Note Date Seen: Jun 15, 2024 Resident Creating Document: SARAH PETERSEN RESIDENT Medical Necessity Reason Pt with a Central, PICC or Fol: Yes The following are medically ne: Wilks Catheter Subjective Review of Systems VISHAL BATEMAN is a 74-year-old male with a PMH of cerebral palsy by and scoliosis presented to the accompanied by caregiver with the chief complaints of worsening of generalized weakness for past 2 weeks. Caregiver reported patient has been not eating, drinking for past 3 days and also usually patient can get himself up to chair and bedside commode med for past 2 weeks he is unable to transfer himself to wheelchair and found on the floor 2 times likely fall from bed. Caregiver denies fever, nausea, vomiting, flu-like symptoms, and other acute associated symptoms. Patient reported back pain himself. But denies any other complaint. PMH: Cerebral palsy, scoliosis PSH: Denies Family history: Reviewed, noncontributory Social history: Lives alone at home. Denies smoking, alcohol and other drug abuse Allergies: Sulfa allergies Home medications: Baclofen 10 mg 06/01 - Patient seen and examined at the bedside. CT head unremarkable. Failed Swallow eval. 05/31 - patient seen and examined at the bedside. Repeat swallow eval pending. White cell count increased to 14, serum bicarb going down, anion gap increased. Lactic acid within normal limit. Antibiotics broadened. Failed swallow eval twice now. 06/01-Dr. Joyce: HA May wants to proceed with hospice. Patient was prior on hospice at home but was not getting adequate care. We will consult social to help with hospice and discharge planning. We will get MRI since dysphagia is new for the patient. 06/02-patient seen and examined at the bedside. No acute distress. Started Clinimix. 06/03 - . Patient seen and examined at the bedside. Patient refused PEG tube placement. Agrees with parenteral nutrition at this time. 06/04 - patient seen and examined at the bedside, POA came to see the patient, patient agrees for PEG tube placement. GI consulted. 06/05- patient seen and examined at bedside. Potassium and magnesium replenised. GI scheduled PEG tube placement on 06/07 06/06 - patient seen and examined at the bedside. Electrolytes replenish. NPO starting midnight. 06/07 - patient seen and examined at the bedside. HA Rowell at bedside. PEG tube placement today. Residual to be checked in a.m.. 06/08 - status post PEG tube placement. Peg tube site is dressed/clean/intact. Feedings to be started later today. Discontinued IV Zosyn. 06/09 - seen and examined at the bedside. Ultrasound upper extremity completed, shows superficial thrombophlebitis. Warm compresses and GT tube Keflex 500 b.i.d. started. 06/10 - patient seen and examined at the bedside. Patient is medically cleared to be discharged. Discharged to home. Multiple hospice has denied patient at this point. Per POA, patient has no caregiver available at home and she can not receive the patient. 06/12 - patient is seen and examined at the bedside. No acute needs or complaint. 06/13-patient seen and examined at the bedside. No acute needs. Denies fevers/chills/cough/abdominal pain or any symptom. Discharge medication: Keflex 500 b.i.d., switch to amoxicillin 800 via G-tube b.i.d. for the next 7 days. We will continue to give discharge medication as the patient is currently in this facility. 06/14 - patient seen and examined at the bedside. Tylenol scheduled with G-tube. 06/15-blood culture was negative. Second blood culture revealed Gram-positive cocci in cluster which is likely due to contaminated sample. Patient is going to SNF today. Objective vital signs Vital Sign Date Time Temp Pulse Resp B/P (MAP) Pulse Ox O2 Delivery O2 Flow Rate FiO2 06/15/24 12:22 88 16 100 06/15/24 12:16 Nasal Cannula* 06 1406/15/24 09:00 97.5 112/64 (80) 97.5 Total Intake and Output 06/14/24 06/14/24 06/15/24 15:00 23:00 07:00 Intake Total 0 ml 990 ml Output Total 350 ml 3 ml Balance -350 ml 987 ml medications Current Medications Medications Dose Ordered Sig/Elian Route Start Time Stop Time Status Last Admin Dose Admin Docusate Sodium 100 mg BIDPRN PRN PO 05/29/24 21:00 Hydralazine HCl 10 mg Q6HP PRN IV 06/05/24 07:00 06/09/24 01:15 10 MG Morphine Sulfate 1 mg Q6HP PRN IV 06/08/24 14:30 06/10/24 04:42 1 MG Enteral Nutritional Formula 1,000 ml 50ML/HR GT 06/10/24 12:15 06/12/24 19:02 1,000 ML Albuterol 2.5 mg Q6HWA [facility] 06/11/24 18:00 06/15/24 12:16 2.5 MG Ipratropium [place] 0.5 mg Q6HWA [facility] 06/11/24 18:00 06/15/24 12:16 0.5 MG Baclofen 10 mg BID GT 06/13/24 11:00 06/15/24 11:18 10 MG Amoxicillin/ Clavulanate Potassium 800 mg BID GT 06/13/24 15:00 06/15/24 10:00 800 MG Acetaminophen 650 mg Q6HP GT 06/14/24 07:45 06/15/24 12:00 650 MG Aspirin 81 mg DAILY GT 06/15/24 10:00 06/15/24 11:18 81 MG Atorvastatin Calcium 40 mg HS GT 06/14/24 22:00 06/14/24 22:47 40 MG Examination Elderly male patient lying in bed, in no acute distress, General: Cachectic-looking, afebrile, palor, mucosae are moist Cardiovascular: Regular S1 and S2. No murmurs, gallops or rubs. No JVD elevation. No pedal edema Respiratory: Normal B/L air entry on room air. Clear lung sounds on auscultation Abdomen: Soft, nontender, nondistended, normoactive bowel sounds, no rebound tenderness, no organomegaly, no masses. Wilks seen. Peg tube seen, dressing dry clean and intact Genitourinary: Deferred MSK/skin: Mobilizes 4 limbs. Skin is dry and warm Neurological: No motor, no sensitive deficits, normal speech. Pupils are isocoric and reactive. Psych/Mental Status: A/Ox2 laboratory and microbiology Laboratory Tests 06/11/24 05:54 06/08/24 10:49 Test 06/11/24 05:54 Range/Units Serum Glucose 127 H 74-106 mg/dL Microbiology Date/Time Source Procedure Growth Status 06/14/24 07:34 Blood Blood Culture - Preliminary Resulted 05/30/24 22:30 Nose MRSA Screen - Final Complete Problem List/Assessment/Plan Problem List/Assessment/Plan Problem List/Assessment/Plan Generalized weakness probably secondary to possible acute stroke History of cerebral palsy Likely Stroke CT head unremarkable Continue IV fluid Could not complete MRI as the patient could not lie still Dysphagia - new onset status with PEG tube placement Failure to thrive Started Clinimix per pharmacy 06/02 Stopped Clinimix on 06/09/24 -06/09/2024-status post PEG tube placement. Patient was seen by security administrator. Recommended change tube feeding to ensure high-protein 1 can via G-tube 4 times a day. GI Consulted - PEG tube placement completed 06/07 Clear ensure 240 mL q.6 hour starting 06/08 Sepsis secondary to Pneumonia, gram positive and Negative IV Ceftriaxone and IV azithro 05/30. Discontinued 05/31 Patient completed IV antibiotics course IV Zosyn 05/31 till 06/08 Continue IV doxy starting 05/31 MRSA nares pending Lactic unremarkable Mechanical fall without LOC Head CT unremarkable Microscopic hematuria Chronic Wilks catheter Mild Anemia, likely normocytic UA shows 2+ blood in 158 RBC Hypokalemia-replenished Hypomagnesemia Replenishing Lovenox 40 mg sc daily Failed swallow eval thrice, status post G-tube placement. DIET : NPO, G-tube feeding clear ensure ON accu checks Patient's POA, DC planning initiated with [facility]. Goals of care discussed with the patient, caregiver and (niece over the phone), over 30 minutes DNR Plan discussed with patient and the nurse in which all questions have been answered Case discussed with Dr. Newsome Plan discussed with: Patient, Other (HA rodriguez) Plan discussed with: Patient, Other (RN) Dietary Evaluation Review Comments: 1. Continue NPO diet per [facility], high-risk for aspiration 2. Currently on PN, awaiting PEG placement; suggest continuation of Clinimix 4.25/10 @ 83 ml/hr in the interim (provides 1020 kcal, meets 100% pro needs, 82% kcal needs) *may add IVLE 250 ml 20% 3x/wk to meet remainder of kcal needs 3. Once PEG tube in place and confirmed ready to use, recommend TF w/ Jevity 1.2; begin at 10 ml/hr and advance by 10 ml Q4 hrs or as tolerated to goal-rate of 50 ml/hr continuously *note: If bolus feeds desired at D/C, pt will require 5 cartons (237 ml/carton) daily 4. Monitor BMP/lytes and replete to WNL/PRN Expected Outcomes/Goals: Improved nutritional status, weight maintenance/gradual gain SARAH PETERSEN RESIDENT Jun 15, 2024 14:14
== END 2024-06-15 16:06 | DRG 64 ==
LOC: ER 16:51 → EDBD 16:51 → OVERFLOW 20:46 → TELE-WESTW 20:48 → WEST WING 06-05 17:05 → TELE-WESTW 06-08 03:54 → WEST WING 06-12 03:28
PROVIDERS: ADMIT Student in an Organized Health Care Education/Training Program; ATTEND Student in an Organized Health Care Education/Training Program
PROC: 05HF33Z Insertion of Infusion Device into Left Cephalic Vein, Percutaneous Approach (ICD-10-PCS; principal; 2024-06-04)
PROC: B54NZZA Ultrasonography of Left Upper Extremity Veins, Guidance (ICD-10-PCS; 2024-06-04)
PROC: 0DH63UZ Insertion of Feeding Device into Stomach, Percutaneous Approach (ICD-10-PCS; 2024-06-07)
PROC: 0DB68ZX Excision of Stomach, Via Natural or Artificial Opening Endoscopic, Diagnostic (ICD-10-PCS; 2024-06-07)
DX: I63.9 Cerebral infarction, unspecified (principal); A41.59 Other Gram-negative sepsis; J15.69 Pneumonia due to other Gram-negative bacteria; J15.9 Unspecified bacterial pneumonia; Z68.1 Body mass index [BMI] 19.9 or less, adult; E46 Unspecified protein-calorie malnutrition; I82.613 Acute embolism and thrombosis of superficial veins of upper extremity, bilateral; E86.0 Dehydration; R31.29 Other microscopic hematuria; R62.7 Adult failure to thrive; E87.6 Hypokalemia; E83.42 Hypomagnesemia; R63.6 Underweight; R13.10 Dysphagia, unspecified; G80.9 Cerebral palsy, unspecified; D64.9 Anemia, unspecified; K25.9 Gastric ulcer, unspecified as acute or chronic, without hemorrhage or perforation; K29.70 Gastritis, unspecified, without bleeding; M41.80 Other forms of scoliosis, site unspecified; F03.90 Unspecified dementia, unspecified severity, without behavioral disturbance, psychotic disturbance, mood disturbance, and anxiety; Z86.73 Personal history of transient ischemic attack (TIA), and cerebral infarction without residual deficits; Z88.2 Allergy status to sulfonamides; Z82.3 Family history of stroke; Z79.899 Other long term (current) drug therapy
CPT/HCPCS: 36415; 70450; 71045; 80048; 80053; 80061; 80069; 80076; 80307; 81001; 82962; 83036; 83605; 83735; 83880; 84100; 84443; 84478; 85025; 85610; 85652; 85730; 86141; 87040; 87077; 87081; 87186; 87426; 87804; 92507; 92610; 93005; 93306; 93970; 94640; 96360; 97110; 97163; 97530; 99291; G0378; J1815; J2003; J2250; J2543; J2704; J3480

== ENCOUNTER 2024-08-07 10:31 | Emergency (ER) | payer OTHER, MEDICAID ==
[~2024-08-07] VITALS: Ht 160 cm; Wt 45.5 kg
[~2024-08-07 10:31] MED LIST: ASPI-498 GT; ATOR40TA52 PO; AUG875T GT; [UNRECOGNIZED DRUG - CODE] PO
[2024-08-07 11:10] VITALS: PULSE 86; RESP 18; TEMP 98; O2SAT 97
--- NOTE | 2024-08-07 12:33 | DVH ---
Exam: XY KUB ABDOMEN SINGLE VIEW Indication: g tube dislodge Comparison: None Technique: 1 radiographic views of the abdomen. Findings: Moderate to large volume colonic stool. Nonobstructive bowel gas pattern noted. There is no definite evidence for pneumoperitoneum. No abnormal calcifications noted. Impression: Moderate to large volume colonic stool.
--- NOTE | 2024-08-07 13:04 | ED.PDOC ---
History of Present Illness HPI Comments 74M BIBA w/ prior Hx of TIA, Cerebral Palsy, CVA and scoliosis which all may be associated to the c/c of G-Tube Removal. childcare worker states that the pt pulled out his G-Tube yesterday and the pt states on eating for 1 month. Denies chills, fever, N/V/D, SOB, CP No other associated symptoms, modifiers, recent injuries or sick contacts present at this time. Chief Complaint: Tube Replacement Time Seen by MD: 11:40 Primary Care Provider: UNOBTAINABLE Reviewed Notes: Nurses Notes, Casting Associate Notes, Medications, Allergies Allergies: Coded Allergies: Sulfa Antibiotics (Verified Allergy, Unknown, 05/29/24) Home Meds Active Scripts Aspirin (ASPIRIN 81) 81 Mg Tab, 81 MG GT DAILY for 30 Days, #30 TAB Prov:CORBYSANTIAGO RESIDENT 06/14/24 Atorvastatin Calcium (ATORVASTATIN CALCIUM) 40 Mg Tab, 40 MG PO DAILY for 30 Days, #30 TAB Prov:CORBYSANTIAGO RESIDENT 06/14/24 Amoxicillin & Pot Clavulanate (AUGMENTIN TABLET) 875 Mg Tb, 875 MG GT BID for 7 Days, #14 TAB Prov:CORBYSANTIAGO RESIDENT 06/13/24 Nutritional Supplements (Jevity 1.2 Jeffery) 1 Ml Liq, 1 ML PO 5XD for 30 Days, #150 LIQ 0 Refills Prov:CORBYSANTIAGO RESIDENT 06/11/24 Information Source: Patient, Hematology Nurse Mode of Arrival: EMS Severity: Moderate Timing: Hours Duration: Since onset, Hours Prehospital treatment: None Past Medical History PAST MEDICAL HISTORY: TIA Past Medical History (Other): Celebral Palsy, Scoliosis Surgical History: Denies all surgeries Family History Family History: Reviewed,noncontributory to illness, Unknown Social History Smoker: Non-Smoker Alcohol: Denies ETOH Use Drugs: Denies Drug Use Lives In: Home Constitutional: reports: others (G-Tube Pulled Out); denies: chills, diaphoresis, fatigue, fever, malaise, sweats, weakness EENTM: denies: blurred vision, double vision, ear bleeding, ear discharge, ear drainage, ear pain, ear ringing, eye pain, eye redness, hearing loss, mouth zakia n, mouth swelling, nasal discharge, nose bleeding, nose congestion, nose pain, photophobia, tearing, throat pain, throat swelling, voice changes, others Respiratory: denies: cough, hemoptysis, orthopnea, SOB at rest, shortness of breath, SOB with excertion, stridor, wheezing, others Cardiovascular: denies: chest pain, dizzy spells, diaphoresis, Dyspnea on exertion, edema, irregular heart beat, left arm pain, lightheadedness, palpitations, PND, syncope, others Gastrointestinal: denies: abdomen distended, abdominal pain, blood streaked bowels, constipated, diarrhea, dysphagia, difficulty swallowing, hematemesis, melena, nausea, poor appetite, poor fluid intake, rectal bleeding, rectal pain, vomiting, others Genitourinary: denies: burning, dysuria, flank pain, frequency, hematuria, incontinence, penile discharge, penile sore, pain, testicle pain, testicle swelling, urgency, others Neurological: denies: dizziness, fainting, headache, left sided numbness, left sided weakness, numbness, paresthesia, pre-existing deficit, right sided numbness, right sided weakness, seizure, speech problems, tingling, tremors, weakness, others Musculoskeletal: denies: back pain, gout, joint pain, joint swelling, muscle pain, muscle stiffness, neck pain, others Integumetry: denies: bruises, change in color, change in hair/nails, dryness, laceration, lesions, lumps, rash, wounds, others Allergic/Immunocompromised: denies: Difficulty Healing, Frequent Infections, Hives, Itching, others Hematologic/Lymphatic: denies: anemia, blood clots, easy bleeding, easy bruising, swollen glands, others Endocrine: denies: excessive hunger, excessive sweating, excessive thirst, excessive urination, flushing, intolerance to cold, intolerance to heat, unexplained weight gain, unexplained weight loss, others Psychiatric: denies: anxiety, bipolar disorder, depression, hopeless, panic disorder, schizophrenia, sleepless, suicidal, others All Other Systems: Reviewed and Negative Physical Exam Exam Comments G-tube Site is closed, Communicates w/ letter board General Appearance: No Apparent Distress, Normal HEENT: Normal ENT Inspection, Pharynx Normal, TMs Normal Neck: Full Range of Motion, Non-Tender, Normal, Normal Inspection Respiratory: Chest Non-Tender, Lungs Clear, No Accessory Muscle Use, No Respiratory Distress, Normal Breath Sounds Cardiovascular: No Edema, No JVD, No Murmur, No Gallop, Normal Peripheral Pul ses, Regular Rate/Rhythm Breast Exam: Deferred Gastrointestinal: No Organomegaly, Non Tender, No Pulsatile Mass, Normal Bowel Sounds, Soft Genitalia: Deferred Pelvic: Deferred Rectal: Deferred Extremities: No calf tenderness, Normal capillary refill, Normal inspection, Normal range of motion, Non-tender, No pedal edema Musculoskeletal : Apperance: Normal Neurologic: Alert, ornament setter II-XII nml as Tested, No Motor Deficits, Normal Affect, Normal Mood, No Sensory Deficits Cerebellar Function: Normal Reflexes: Normal Skin: Dry, Normal Color, Warm Lymphatic: No Adenopathy Was a procedure done? Was a procedure done?: No Differential Dx Considerations may include: g tube dislodge, g tube site infection, wound complication, X-Ray, Labs, Meds, VS Vital Signs Date Time Temp Pulse Resp B/P (MAP) Pulse Ox O2 Delivery O2 Flow Rate FiO2 08/07/24 13:00 70 20 111/66 (81) 95 08/07/24 11:10 86 18 97 Room Air* 0 21 08/07/24 11:10 98.0 86 18 120/71 (87) 97 98.0 08/07/24 10:57 98.1 74 18 130/74 (92) 97 98.1 Time of 1ST Reevaluation: 12:10 Reevaluation 1ST: Unchanged Patient Education/Counseling: Diagnosis, Treatment, Prognosis Family Education/Counseling: Diagnosis, Treatment, Prognosis Additional Information The following tests were ordered, and results were reviewed by me: NASREEN I reviewed and agreed with the following test results read by other providers:NASREEN I discussed treatment and results with medical personnel and: 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 pt has been eating for the last month and has not used the g tube. the g tube is out and he does not want it replaced. the kub is unremarkable. the wound appears clean and os is closing. pt is stable for discharge Departure 1 Departure Time of Disposition: 14:27 Impression: Primary Impression: S/P gastrostomy tube (G tube) placement, follow-up exam Disposition: 01 HOME / SELF CARE / HOMELESS Condition: Good Discharged With: Self, Spouse Critical Care Note Critical Care Time?: No Stability Stability form required: No I personally scribed for DAVID VILLAVICENCIO MD ([email or web address]) on 08/07/24 at 13:04. Electronically submitted by Nikos Loya ([email or web address]). DAVID VILLAVICENCIO MD Aug 07, 2024 13:04
[2024-08-07 15:55] VITALS: BP 116/78; PULSE 84; RESP 20; O2SAT 97
== END 2024-08-07 16:10 | disposition home or self-care (01) ==
LOC: ER 10:31 → EDBD 10:31 → ER 16:10
DX: Z43.1 Encounter for attention to gastrostomy (principal); M41.9 Scoliosis, unspecified; Z79.82 Long term (current) use of aspirin; Z79.899 Other long term (current) drug therapy; Z86.73 Personal history of transient ischemic attack (TIA), and cerebral infarction without residual deficits; Z88.2 Allergy status to sulfonamides
CPT/HCPCS: 74018